=== PATIENT | female | born 1955 | race Caucasian/White ===

== ENCOUNTER 2023-10-05 15:11 | Emergency (ER) | payer MEDICARE, OTHER, SELFPAY ==
[2023-10-05 15:13] VITALS: BP 139/66; PULSE 66; RESP 20; TEMP 36.3; O2SAT 97; BMI 28.3
--- NOTE | 2023-10-05 15:58 | CT_ITS ---
EXAM: CT ANGIOGRAPHY HEAD AND NECK WITHOUT AND WITH INTRAVENOUS CONTRAST CLINICAL INDICATION: sudden headache and neck pain TECHNIQUE: [place] [facility] [place]/head and neck CT angiography protocol performed without and with intravenous contrast. This CT exam was performed using one or more of the following dose reduction techniques: automated exposure control, adjustment of the mA and/or kV according to patient size, and/or use of iterative reconstruction technique. MIP reconstructed images were created and reviewed. CONTRAST: IV 100mL Isovue-[id number] RADIATION DOSE: CTDIvol = 25.50 mGy, DLP = 1480.33 mGy-cm COMPARISON: No relevant prior studies available. FINDINGS: HEAD: RIGHT ANTERIOR CEREBRAL ARTERY: Unremarkable. No occlusion or significant stenosis. Anterior communicating artery is present. No aneurysm. RIGHT MIDDLE CEREBRAL ARTERY: Unremarkable. No occlusion or significant stenosis. No aneurysm. RIGHT POSTERIOR CEREBRAL ARTERY: Unremarkable. No occlusion or significant stenosis. No aneurysm. RIGHT INTRACRANIAL INTERNAL CAROTID ARTERY: Unremarkable. No significant stenosis. No dissection or occlusion. RIGHT INTRACRANIAL VERTEBRAL ARTERY: Unremarkable. No significant stenosis. No dissection or occlusion. LEFT ANTERIOR CEREBRAL ARTERY: Unremarkable. No occlusion or significant stenosis. No aneurysm. LEFT MIDDLE CEREBRAL ARTERY: Unremarkable. No occlusion or significant stenosis. No aneurysm. LEFT POSTERIOR CEREBRAL ARTERY: Unremarkable. No occlusion or significant stenosis. No aneurysm. LEFT INTRACRANIAL INTERNAL CAROTID ARTERY: Unremarkable. No significant stenosis. No dissection or occlusion. LEFT INTRACRANIAL VERTEBRAL ARTERY: Unremarkable. No significant stenosis. No dissection or occlusion. BASILAR ARTERY: Unremarkable. No occlusion or significant stenosis. No aneurysm. OTHER VASCULATURE: No vascular malformation. BRAIN AND EXTRA-AXIAL SPACES: Unremarkable. No intra- or extra-axial hemorrhage. No evidence of acute infarct. No intracranial mass or mass effect. There is preservation of the vergraa/white matter interface. Posterior fossa structures are unremarkable. Ventricles are appropriate for age. No hydrocephalus. Basal cisterns are patent. SINUSES: Moderate chronic sinus disease of the right frontal, ethmoid and maxillary sinuses. MASTOID AIR CELLS: Unremarkable as visualized. Clear. ORBITS: Visualized globes, extraocular muscles, optic nerves and retrobulbar fat appear unremarkable. NECK: RIGHT COMMON CAROTID ARTERY: Unremarkable. No significant stenosis. No dissection or occlusion. RIGHT EXTRACRANIAL INTERNAL CAROTID ARTERY: Atherosclerosis. No significant stenosis. No dissection or occlusion. RIGHT EXTERNAL CAROTID ARTERY: Unremarkable. No occlusion. RIGHT EXTRACRANIAL VERTEBRAL ARTERY: Unremarkable. No significant stenosis. No dissection or occlusion. LEFT COMMON CAROTID ARTERY: Unremarkable. No significant stenosis. No dissection or occlusion. LEFT EXTRACRANIAL INTERNAL CAROTID ARTERY: Atherosclerosis. No significant stenosis. No dissection or occlusion. LEFT EXTERNAL CAROTID ARTERY: Unremarkable. No occlusion. LEFT EXTRACRANIAL VERTEBRAL ARTERY: Unremarkable. No significant stenosis. No dissection or occlusion. BRACHIOCEPHALIC AND SUBCLAVIAN ARTERIES: Unremarkable as visualized. No occlusion or significant stenosis. LUNG APICES: Unremarkable as visualized. HEAD and NECK: BONES/JOINTS: Anterior fusion plate and screws at C5-C7. No discrete lytic or blastic abnormalities. SOFT TISSUES: Unremarkable. CAROTID STENOSIS REFERENCE USING NASCET CRITERIA: % ICA stenosis = (1 - narrowest ICA diameter/diameter of distal cervical ICA) x 100. Mild - <50% stenosis. Moderate - 50-69% stenosis. Severe - 70-94% stenosis. Near occlusion - 95-99% stenosis. Occluded - 100% stenosis. CT/CTA Head AND Neck W/ Contrast IMPRESSION: 1. No acute findings in the arteries of the head and neck. 2. No acute intracranial hemorrhage or mass effect. Electronically Signed: Cong Rush MD ([place]) at 18:48 EST Reading Location ID and State: [facility] / [place] , Service support ,
--- NOTE | 2023-10-05 16:01 | EX.ED.VIS.HA ---
HPI History of Present Illness Chief Complaint: Back Detail of Chief Complaint: Headache and neck pain Informant: patient Narrative Narrative: Patient presents to the emergency department with off-and-on neck pain for couple weeks. She tells me she had a cervical fusion 15 years ago. Today she had worsening pain in her neck and then developed sudden onset of severe headache. She took her Maxalt without relief. She does have history of migraines. Headaches different and that it is more severe and involves the entire head. She does describe some photophobia and some nausea but no vomiting. Patient denies any falls or injuries. No pain or paresthesias in the extremities. No weakness in the extremities. PFSH PFSH Allergy/AdvReac Type Severity Reaction Status Date / Time Iodinated Contrast Media Allergy Hives Verified 10/05/23 15:13 Opioids - Morphine Analogues Allergy Hives Verified 10/05/23 15:13 Social History Smoking Status: Never smoker ROS ROS ED Review of Systems ROS Unobtainable: other Constitutional Constitutional ED: Reports lethargy; Denies chills, fever(s), sweats or weight loss Eyes Eyes: Denies blurry vision, change in vision or diplopia ENT ENT ED: Denies rhinorrhea or sore throat Cardiovascular Cardiovascular: Denies chest pain, orthopnea or racing heartbeat Respiratory/Chest Respiratory/Chest: Denies cough, dyspnea, dyspnea on exertion, orthopnea or sputum Gastrointestinal Gastrointestinal: Denies abdominal pain, diarrhea, nausea or vomiting Genitourinary Genitourinary ED: Denies dysuria, hematuria or urinary frequency Musculoskeletal Musculoskeletal: Reports neck pain; Denies arthralgias, back pain or myalgias Integumentary Denies abscess, Abrasions or rash Neurologic Neurologic: Reports headache(s); Denies weakness Psychiatric Psychiatric: Denies anxiety, depression or suicidal thoughts Endocrine Endocrinology: Denies polydipsia, polyphagia or polyuria Hematologic/Lymphatic Hematologic/Lymphatic: Denies easy bleeding, easy bruising or lymphadenopathy Allergic/Immunologic Allergic/Immunologic ED: Denies mouth swelling, tongue swelling or urticaria EXAM Physical Exam Const Vital Signs: 10/05/23 15:13 10/05/23 19:00 Temperature 97.3 F L Temperature Source Temporal Pulse Rate 66 79 Respiratory Rate 20 H 16 Blood Pressure 139/66 H 151/47 H Blood Pressure Mean 90 81 Pulse Ox 97 98 Oxygen Delivery Method Room Air Positive well nourished and well developed General Appearance ED: well developed and NAD HEENT Reports TM's clear and moist mucous membranes normocephalic and atraumatic; Negative for trauma or tenderness Tympanic Membrane ED: Yes TM's clear Eyes PERRL and EOMs intact bilaterally General Eye ED: Negative for pale conjunctiva or scleral icterus Neck no lymphadenopathy, supple and no JVD Neck Narrative: Tenderness palpation over the C7 vertebrae spinous process. Seems to reproduce her pain. General: tenderness Chest Wall inspection of chest normal and palpation of chest normal Chest: Negative for tenderness Resp normal respiratory effort and clear to auscultation bilaterally Effort and Inspection: Negative for respiratory distress or pain with movement Auscultation: Negative for rhonchi, wheezes or diminished lung sounds Cardio regular rate, regular rhythm, S1 normal heart sound, S2 normal heart sound and no murmurs Peripheral Pulses: pulses 2+ throughout GI normal to inspection, nondistended, normoactive bowel sounds, soft to palpation, non-tender, non-distended and no masses Back/Spine no CVA tenderness and no thoracic nor lumbar tenderness Extremity normal to inspection General Extremety ED: Negative for edema General Extremity: Negative for edema Neuro oriented x3, CN's II-XII intact bilaterally, no sensory deficits noted and gait normal Neuro Narrative: Finger-nose and heel kaminski testing within normal limits, negative Romberg, negative for drift, fundi benign Sensorium / Orientation: awake, alert, oriented to person, oriented to place and oriented to time Motor Exam: strength 5/5 throughout and strength abnormal Psych mental status grossly normal Skin no rashes or lesions noted and no wounds MDM MDM MDM Narrative Medical decision making narrative: Patient presents with atraumatic neck pain and sudden onset of severe headache. She does have history of migraines but this headache feels different. In the differential would be migraine versus intracranial hemorrhage or aneurysm or arterial dissection. IV line was established. She was medicated with Reglan, Benadryl, and Toradol. Patient had a CTA of the head and neck after being premedicated with Solu-Medrol and Benadryl given she has allergy to IVP contrast dye. CTA of head and neck were unremarkable. Reglan and Benadryl and Toradol as well as a liter normal saline fluid bolus did essentially resolve her headache. She is feeling significantly improved. At this point she will be discharged to home. The CTA of the neck did also reveal that she had a cervical fusion and the hardware appears to be in place and there is no evidence of lytic lesions or other bony abnormalities. Lab Data Labs: Laboratory Results - last 24 hr 10/05/23 16:26 Creatinine 0.93 Estim Creat Clear Calc 42.16 Est GFR (MDRD) Af Amer 77 Est GFR (MDRD) Non-Af 64 Radiography Diagnostic Testing: Clinical Impression(s) from Imaging Studies Head/Neck CTA 10/05/23 15:58 IMPRESSION: 1. No acute findings in the arteries of the head and neck. 2. No acute intracranial hemorrhage or mass effect. Electronically Signed: Cong Rush MD ([place]) at 18:48 EST Reading Location ID and State: [facility] / [place] , Service support , Discharge Plan Triage Chief Complaint: Back Other Complaint: Headache ED Provider: Amaury Carrasco Dx/Rx/DC Orders Clinical Impression: Migraine headache, Neck pain Instructions: ED, Migraine (Classical), ED Back and Neck Pain, General Primary Care Provider: Jefefry Ma Referrals: Jeffery Ma MD [Primary Care Provider] - 3-5 Days Disposition Disposition: Home, Self Care Discharge Date/Time: 10/05/23 19:17
[2023-10-05] MEDS: 0.9% Normal Saline (1000mL) 1,000 ML 1000 ML IV (16:18)
[2023-10-05] MEDS: Ketorolac 15 MG/ML Vial IV (16:19)
[2023-10-05] MEDS: DiphenhydrAMINE 50 MG/ML Syringe 25 MG IV (16:19)
[2023-10-05] MEDS: Metoclopramide 10 MG/2 ML Vial IV (16:19)
[2023-10-05] MEDS: MethylPREDNISolone 125 MG/2 ML Vial IV (16:20)
[2023-10-05 17:49] LABS: Creatinine, Serum 0.93 mg/dL (0.55-1.02); EST Glomerular Filtration Rate 64 mL/min (>60); Est Glom Filt Rate - Afr Amer 77 mL/min (>60); Estimated Creatinine Clearance 42.16 ml/min
--- OUTSIDE RECORDS SUMMARY | 2023-10-05 17:55 | XMS RPT_ITS | CCD ---
Author Name Unknown Address [address] [place] [address] Organization [facility] Care Team Providers Care Institutional Aide Name Role Phone JUAN, DR NATASHA Wong Primary Care Unavailable JUAN, DR NATASHA Wong Admitting Unavailable JUAN, DR NATASHA Wong Attending Unavailable JUAN, DR NATASHA Wong Primary Care Unavailable JUAN, DR NATASHA Wong Admitting Unavailable JUAN, DR NATASHA Wong Attending Unavailable KVNG MALONE DO Attending Unavailable FAISAL, KVNG DO Primary Care Unavailable FAISALKVNG ENGLE DO Admitting Unavailable Andrea OPTICAL WORKER.Lazaro SIDDIQUI Primary Care Provider Stella Castillo RN Unavailable LAZARO MENDEZ CNP Primary Care Physician Stella Castillo RN Unavailable Stella Castillo RN Unavailable [facility] OPTICAL WORKER.Gala SIDDIQUI Primary Care Provider [phone] Stella Castillo RN Unavailable [facility] OPTICAL WORKER.Gala SIDDIQUI Primary Care Provider [phone] Andrea OPTICAL WORKER.Lazaro SIDDIQUI Primary Care Provider [facility] OPTICAL WORKER.Gala SIDDIQUI Primary Care Provider [phone] Andrea OPTICAL WORKER.Lazaro SIDDIQUI Primary Care Provider CARLYN LOPEZ Attending Unavailable CARLYN LOPEZ Primary Care Unavailable CARLYN LOPEZ Admitting Unavailable NATASHA MARTINEZ Admitting Unavailable NATASHA MARTINEZ Attending Unavailable NATASHA MARTINEZ Primary Care Unavailable LAZARO MENDEZ Attending Unavailable JULIÁN CLEMENT Attending Unavailable BOLOGNAGALA Attending Unavailable Isela CANDELARIA MD, Robert Earl Primary Care Provider LAZARO MENDEZ Attending Unavailable BOLOGNA, GALA M Attending Unavailable BOLOGNA, GALA M Attending Unavailable ANDREALAZARO Primary Care Unavailable ANDREALAZARO Attending Unavailable ANDREA, LAZAOR Forte Primary Care Unavailable DEBBIE RUIZ Attending Unavailab le LAZARO MENDEZ Primary Care Unavailable JULIÁN CLEMENT Attending Unavailable LAZARO MENDEZ Primary Care Unavailable NITA WEISS II Primary Care Unavailabl e LAZARO MENDEZ Attending Unavailable BOLOGNA, GALA Primary Care Unavailable ANDREALAZARO Attending Unavailable BOLOGNA, GALA Primary Care Unavailable ANDREALAZARO Attending Unavailable BOLOGNA, GALA Primary Care Unavailable ANDREALAZARO Attending Unavailable BOLOGNA, GALA Primary Care Unavailable MILAGRO VIRAMONTES Attending Unavailable ANDREA, LAZARO Forte Primary Care Unavailable BOLOGNA, GALA Primary Care Unavailable BOLOGNAGALA Attending Unavailable LAZARO MENDEZ Primary Care Unavailable Stella Castillo RN Unavailable [facility] OPTICAL WORKER.MACHINE TRACER, Gala Primary Care Provider [facility] OPTICAL WORKER.MACHINE TRACER, [facility] Primary Care Provider CLIF HOGAN Attending Unavailable CLIF HOGAN Referring Unavailable NITA WEISS II Primary Care Unavailabl e FAIZA ARAGON Attending Unavailable BOLOGNA, GALA Primary Care Unavailable MARGOFAIZA Attending Unavailable MARGO, FAIZA Referring Unavailable LAZARO MENDEZ Primary Care Unavailable CLIF HOGAN Admitting Unavailable CLIF HOGAN Attending Unavailable BOLOGNA, GALA Primary Care Unavailable MARGO, FAIZA Attending Unavailable BOLOGNA, GALA Referring Unavailable BOLOGNA, GALA Primary Care Unavailable CLIF HOGAN Admitting Unavailable CLIF HOGAN Attending Unavailable BOLOGNA, GALA Primary Care Unavailable MARGOFAIZA LUJAN Attending Unavailable NITA WEISS II Primary Care Unavailabl DEANN Gomez PA-C Attending Unavailable ISELA MORENO, DR NITA CANDELARIA Primary Care Unavailab le Allergies Allergy Classification Reported Allergen(s) Allergy Type Date of Onset Reaction(s) Facility (20 sources) Morphine; Translations: [morphine] Drug Allergy 9 [facility] (20 sources) Iodinated Contrast Media; Translations: [IODINATED CONTRAST MEDIA] Drug Allergy 6 [facility] (1 source) Contrast media Drug allergy [facility] (20 sources) Doxepin; Translations: [DOXEPIN] Drug Allergy 9 Other: See Comments [facility] (1 source) Morphine Drug Allergy [facility] (1 source) CONTRAST MEDIA, IODINE RELATED Drug allergy (disorder) [facility] Medications Current Medications Medication Drug Class(es) Dates Sig (Normalized) Sig (Original) acetaminophen 325 mg / HYDROcodone bitartrate 5 mg oral tablet (1 source) Opioid Agonist Start: 12-31-2021 End: 01-03-2022 take 1 tablet by mouth every six hours as needed for pain [place] 325- 5 mg oral tablet Dose = 1 tab(s), Oral, q6h, PRN for pain, X 3 day(s), # 12 tab(s), 0 Refill(s), Chest wall pain, 66.8 Start Date: 12/31/21 Stop Date: 01/03/22 Status: Ordered acetaminophen 325 mg / oxyCODONE hydrochloride 10 mg oral tablet (20 sources) Opioid Agonist Start: 06-17-2023 End: 08-16-2023 take 1 tablet by mouth every eight hours as needed oxyCODONE-acetami nophen (PERCOCET 10) 10-325 mg tablet Take 1 tablet by mouth three times a day as needed for pain for up to 30 days. Do not start before July 17, 2023. 90 tablet 0 07/17/2023 08/16/2023 Active Completed/Discontinued Medications Medication Drug Class(es) Dates Sig (Normalized) Sig (Original) [id number] actuat albuterol 0.09 mg/actuat metered dose inhaler (20 sources) beta2-Adrenergic Agonist Start: 10-27-2021 End: 01-11-2023 take 1 puff(s) by inhalation every six hours as needed albuterol HFA (PROVENTIL HFA, VENTOLIN HFA) 90 mcg/actuation inhaler Inhale 1 Puff as instructed every 6 hours as needed. 18 g 5 01/11/2023 Active Problems Active Problems Problem Classification Problem Date Documented Da te Episodic/Chronic Allergic reactions (4 sources) Allergy status to narcotic agent status; Translations: [Radiographic dye allergy status] Onset: 1 Episodic Anxiety disorders (20 sources) Generalized anxiety disorder; Translations: [Generalized anxiety disorder] Onset: 3 Chronic Cancer of uterus (20 sources) Malignant neoplasm of uterus; Translations: [Malignant neoplasm of uterus, part unspecified] Onset: 3 01-16-2023 Chronic Chronic kidney disease (20 sources) Chronic kidney disease stage 3A ; Translations: [Chronic kidney disease, stage 3a] Onset: 3 04-08-2023 Chronic Conditions associated with dizziness or vertigo (20 sources) Meniere's disease; Translations: [Meniere's disease, unspecified ear] Onset: 3 01-16-2023 Chronic Diabetes mellitus with complications (1 source) Type 2 diabetes mellitus; Translations: [Type 2 diabetes mellitus with hyperglycemia] 04-08-2023 Chronic Diabetes mellitus without complication (20 sources) Type 2 diabetes mellitus without complication; Translations: [Type 2 diabetes mellitus without complications] Onset: 3 01-16-2023 Chronic Disorders of lipid metabolism (20 sources) Hyperlipoproteinemia; Translations: [Hyperlipidemia, unspecified] Onset: 2 09-03-2019 Chronic Diverticulosis and diverticulitis (20 sources) Diverticular disease; Translations: [Diverticulosis of intestine, part unspecified, without perforation or abscess without bleeding] Onset: 2 Chronic Esophageal disorders (20 sources) Gastroesophageal reflux disease; Translations: [Gastro-esophageal reflux disease without esophagitis] 01-06-2021 Chronic Essential hypertension (20 sources) Essential (primary) hypertension; Translations: [Hypertensive disorder] Onset: 1 09-03-2019 Chronic Gastroduodenal ulcer (except hemorrhage) (1 source) Multiple gastric ulcers; Translations: [Gastric ulcer, unspecified as acute or chronic, without hemorrhage or perforation] Chronic Genitourinary symptoms and ill-defined conditions (20 sources) Female stress incontinence; Translations: [Stress incontinence (female) (male)] Onset: 3 01-16-2023 Chronic Genitourinary symptoms and ill-defined conditions (1 source) Urinary symptoms ; Translations: [Unspecified symptoms and signs involving the genitourinary system] Episodic Headache; including migraine (20 sources) Migraine; Translations: [Migraine, unspecified, not intractable, without status migrainosus] Onset: 3 05-11-2019 Chronic Joint disorders and dislocations; trauma-related (20 sources) Traumatic arthropathy-wrist; Translations: [Traumatic arthropathy, right wrist] Onset: 6 Chronic Miscellaneous mental health disorders (20 sources) Chronic insomnia; Translations: [Psychophysiologic insomnia] Onset: 8 Chronic Miscellaneous mental health disorders (20 sources) Depressed mood; Translations: [Other symptoms and signs involving emotional state] 09-03-2019 Episodic Mood disorders (20 sources) Depressive disorder; Translations: [Mixed bipolar affective disorder, moderate] Onset: 1 10-05-2016 Chronic Nonmalignant breast conditions (2 sources) Breast lump; Translations: [Unspecified lump in the right breast, overlapping quadrants] Episodic Other aftercare (3 sources) Taking high risk medication; Translations: [Other career services director (current) drug therapy] Episodic Other connective tissue disease (5 sources) Bursitis of right shoulder; Translations: [Bursitis of right shoulder] Episodic Other connective tissue disease (2 sources) Right rotator cuff syndrome; Translations: [Unspecified rotator cuff tear or rupture of right shoulder, not specified as traumatic] Episodic Other connective tissue disease (1 source) Rotator cuff arthropathy of left shoulder; Translations: [Unspecified rotator cuff tear or rupture of left shoulder, not specified as traumatic] Episodic Other gastrointestinal disorders (20 sources) Irritable bowel syndrome; Translations: [Irritable bowel syndrome without diarrhea] Onset: 2 01-16-2023 Chronic Other lower respiratory disease (1 source) Cough; Translations: [Cough] Episodic Other lower respiratory disease (2 sources) Snoring; Translations: [Snoring] Episodic Other nervous system disorders (20 sources) Chronic pain syndrome; Translations: [Chronic pain syndrome] Onset: 7 Chronic Other nervous system disorders (1 source) Chronic pain syndrome; Translations: [Chronic pain syndrome] Onset: 2 Chronic Other non-traumatic joint disorders (20 sources) Bone spur of vertebra; Translations: [Osteophyte, vertebrae] Onset: 8 01-16-2023 Chronic Other non-traumatic joint disorders (3 sources) Shoulder pain; Translations: [Pain in left shoulder] Episodic Other nutritional; endocrine; and metabolic disorders (20 sources) Obesity; Translations: [Obesity, unspecified] Onset: 3 01-16-2023 Chronic Other upper respiratory disease (20 sources) Allergic rhinitis; Translations: [Allergic rhinitis, unspecified] Onset: 3 01-16-2023 Chronic Other upper respiratory disease (1 source) Seasonal allergic rhinitis; Translations: [Other seasonal allergic rhinitis] 04-08-2023 Chronic Other upper respiratory infections (3 sources) Bacterial sinusitis; Translations: [Chronic sinusitis, unspecified] Chronic Other upper respiratory infections (4 sources) Upper respiratory infection; Translations: [Acute upper respiratory infection, unspecified] Episodic Residual codes; unclassified (3 sources) Obstructive sleep apnea syndrome; Translations: [Obstructive sleep apnea (adult) (pediatric)] Chronic Residual codes; unclassified (20 sources) Hypersomnia with sleep apnea; Translations: [Hypersomnia, unspecified] Onset: 3 01-16-2023 Chronic Residual codes; unclassified (1 source) Daytime somnolence; Translations: [Other hypersomnia] 04-08-2023 Chronic Residual codes; unclassified (2 sources) Acquired absence of other specified parts of digestive tract; Translations: [Acquired absence of other specified parts of digestive tract] Onset: Episodic Spondylosis; intervertebral disc disorders; other back problems (20 sources) Lumbar spondylosis; Translations: [Spondylosis without myelopathy or radiculopathy, lumbar region] Onset: 8 01-16-2023 Chronic Thyroid disorders (20 sources) Hypothyroidism; Translations: [Hypothyroidism, unspecified] Onset: 3 01-16-2023 Chronic Urinary tract infections (1 source) Recurrent urinary tract infection; Translations: [Urinary tract infection, site not specified] Episodic Past or Other Problems Problem Classification Problem Date Documented Da te Episodic/Chronic Abdominal hernia (20 sources) Hiatal hernia; Translations: [Diaphragmatic hernia without obstruction or gangrene] Onset: 09-03-2012 Episodic Abdominal pain (20 sources) Epigastric pain; Translations: [Epigastric pain] Onset: 09-03-2012 Episodic Diabetes mellitus without complication (2 sources) Impaired fasting glycemia; Translations: [Impaired fasting glucose] Onset: 10-12-2022 Episodic Gastritis and duodenitis (20 sources) Gastritis; Translations: [Gastritis, unspecified, without bleeding] Onset: 09-03-2012 Episodic Hemorrhoids (20 sources) Internal hemorrhoids; Translations: [Other hemorrhoids] Onset: 09-03-2012 01-16-2023 Episodic Nausea and vomiting (20 sources) Nausea and vomiting; Translations: [Nausea with vomiting, unspecified] Onset: 09-03-2012 01-16-2023 Episodic Nonspecific chest pain (20 sources) Chest pain; Translations: [Other chest pain] Onset: 12-31-2021 Episodic Other aftercare (20 sources) Patient encounter status; Translations: [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] Onset: 12-04-2016 01-16-2023 Episodic Other aftercare (1 source) Other mcfp (current) drug therapy; Translations: [High risk medication use] Onset: 08-27-2022 Episodic Other and unspecified benign neoplasm (20 sources) Benign neoplasm of colon; Translations: [Benign neoplasm of colon, unspecified] Onset: 09-03-2012 01-16-2023 Episodic Other connective tissue disease (20 sources) Lateral epicondylitis of right humerus; Translations: [Lateral epicondylitis, right elbow] Onset: 11-23-2015 Episodic Other connective tissue disease (20 sources) Biceps tendinitis; Translations: [Bicipital tendinitis, right shoulder] Onset: 08-09-2015 Episodic Other connective tissue disease (20 sources) Bursitis of shoulder; Translations: [Bursitis of unspecified shoulder] Onset: 12-10-2017 01-16-2023 Episodic Other connective tissue disease (20 sources) History of cervical spine fusion; Translations: [Arthrodesis status] Onset: 01-16-2023 01-16-2023 Episodic Other connective tissue disease (20 sources) Tear of right rotator cuff; Translations: [Unspecified rotator cuff tear or rupture of right shoulder, not specified as traumatic] Onset: 11-23-2015 01-16-2023 Episodic Other connective tissue disease (2 sources) Lateral epicondylitis, right elbow; Translations: [Lateral epicondylitis, right elbow] Onset: 08-27-2022 Episodic Other connective tissue disease (1 source) Bicipital tendinitis, right shoulder; Translations: [Bicipital tendinitis, right shoulder] Onset: 01-16-2023 Episodic Other connective tissue disease (1 source) Bursitis of right shoulder; Translations: [Bursitis of right shoulder] Onset: 01-16-2023 Episodic Other connective tissue disease (1 source) Unspecified rotator cuff tear or rupture of right shoulder, not specified as traumatic; Translations: [Rotator cuff syndrome of right shoulder] Onset: 08-27-2022 Episodic Other female genital disorders (20 sources) Dysplasia of cervix; Translations: [Dysplasia of cervix uteri, unspecified] Onset: 01-16-2023 01-16-2023 Episodic Other gastrointestinal disorders (20 sources) Constipation; Translations: [Constipation, unspecified] Onset: 01-16-2023 01-16-2023 Episodic Other gastrointestinal disorders (20 sources) Dysphagia; Translations: [Dysphagia, unspecified] Onset: 01-16-2023 01-16-2023 Episodic Other lower respiratory disease (20 sources) Dyspnea; Translations: [Shortness of breath] Onset: 07-03-2017 01-16-2023 Episodic Other non-traumatic joint disorders (20 sources) Pain of left shoulder joint; Translations: [Pain in left shoulder] Onset: 01-22-2022 01-16-2023 Episodic Other skin disorders (20 sources) Mass of upper limb; Translations: [Localized swelling, mass and lump, left upper limb] Onset: 06-22-2022 Episodic Residual codes; unclassified (20 sources) Illness, unspecified; Translations: [Other unknown and unspecified cause of morbidity and mortality] Onset: 01-16-2023 01-16-2023 Episodic Residual codes; unclassified (20 sources) Edema; Translations: [Edema, unspecified] Onset: 07-03-2017 01-16-2023 Episodic Spondylosis; intervertebral disc disorders; other back problems (20 sources) Low back pain; Translations: [Fusion of spine, cervical region] Onset: 04-21-2018 Episodic Sprains and strains (20 sources) Shoulder strain; Translations: [Strain of unspecified muscle, fascia and tendon at shoulder and upper arm level, right arm, sequela] Onset: 11-23-2015 Episodic Unclassified (1 source) R07.89 Onset: 03-19-2023 Results Test Name Value Interpretation Reference Range Facil ity Vital Signs Date Time Vital Sign Value Performing Clinician Facility 07-15-2023 15:37-0400 Body height 152.4 cm Clif Hogan DO Work Phone: [facility] 07-15-2023 15:37-0400 Body weight 67.13 kg Clif Hogan DO Work Phone: [facility] 07-15-2023 15:37-0400 Diastolic blood pressure 69 mm[Hg] Clif Hogan DO Work Phone: [facility] 07-15-2023 15:37-0400 Heart rate 83 /min Clif Hogan DO Work Phone: [facility] 07-15-2023 15:37-0400 Respiratory rate 19 /min Clif Hogan DO Work Phone: [facility] 07-15-2023 15:37-0400 SaO2% (BldA) [Mass fraction] 96 % Clif Hogan DO Work Phone: [facility] 07-15-2023 15:37-0400 Systolic blood pressure 134 mm[Hg] Clif Hogan DO Work Phone: [facility] 04-25-2023 11:16-0400 Body temperature 98.4 [degF] Lazaro Mendez APRN.MACHINE TRACER Work Phone: [facility] 04-25-2023 11:16-0400 Body weight 66.22 kg Lazaro Mendez APRN.MACHINE TRACER Work Phone: [facility] 04-25-2023 11:16-0400 Diastolic blood pressure 71 mm[Hg] Lazaro Mendez APRN.MACHINE TRACER Work Phone: [facility] 04-25-2023 11:16-0400 Heart rate 75 /min Lazaro Mendez APRN.MACHINE TRACER Work Phone: [facility] 04-25-2023 11:16-0400 SaO2% (BldA) [Mass fraction] 97 % Lazaro Andrea OPTICAL WORKER.MACHINE TRACER Work Phone: [facility] 04-25-2023 11:16-0400 Systolic blood pressure 162 mm[Hg] Lazaro Estradar OPTICAL WORKER.MACHINE TRACER Work Phone: [facility] 04-17-2023 13:57-0400 Body weight 66.95 kg Faiza Margo 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 Work Phone: [facility] 04-17-2023 13:57-0400 Diastolic blood pressure 72 mm[Hg] Faiza Margo 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 Work Phone: [facility] 04-17-2023 13:57-0400 Heart rate 70 /min Faiza Rancocas 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 Work Phone: [facility] 04-17-2023 13:57-0400 SaO2% (BldA) [Mass fraction] 96 % Faiza Rancocas 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 Work Phone: [facility] 04-17-2023 13:57-0400 Systolic blood pressure 169 mm[Hg] Faiza Rancocas 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 Work Phone: [facility] 04-08-2023 16:24-0400 Body height 152.4 cm Nita Weiss II, MD Work Phone: [facility] 04-08-2023 16:24-0400 Body temperature 97 [degF] Nita Weiss II, MD Work Phone: [facility] 04-08-2023 16:24-0400 Body weight 65.32 kg Nita Weiss II, MD Work Phone: [facility] 04-08-2023 16:24-0400 Diastolic blood pressure 60 mm[Hg] Nita Weiss II, MD Work Phone: [facility] 04-08-2023 16:24-0400 Heart rate 77 /min Nita Weiss II, MD Work Phone: [facility] 04-08-2023 16:24-0400 Respiratory rate 12 /min Nita Weiss II, MD Work Phone: [facility] 04-08-2023 16:24-0400 SaO2% (BldA) [Mass fraction] 96 % Nita Weiss II, MD Work Phone: [facility] 04-08-2023 16:24-0400 Systolic blood pressure 130 mm[Hg] Nita Weiss II, MD Work Phone: [facility] 03-19-2023 11:33-0400 Body height 152.4 cm Lazaro Andrea OPTICAL WORKER.MACHINE TRACER Work Phone: [facility] 03-19-2023 11:33-0400 Body temperature 99.1 [degF] Lazaro Andrea OPTICAL WORKER.MACHINE TRACER Work Phone: [facility] 03-19-2023 11:33-0400 Body weight 66.22 kg Lazaro Andrea OPTICAL WORKER.MACHINE TRACER Work Phone: [facility] 03-19-2023 11:33-0400 Diastolic blood pressure 75 mm[Hg] Lazaro Andrea OPTICAL WORKER.MACHINE TRACER Work Phone: [facility] 03-19-2023 11:33-0400 Heart rate 99 /min Lazaro Andrea OPTICAL WORKER.MACHINE TRACER Work Phone: [facility] 03-19-2023 11:33-0400 Respiratory rate 18 /min Lazaro Andrea OPTICAL WORKER.MACHINE TRACER Work Phone: [facility] 03-19-2023 11:33-0400 SaO2% (BldA) [Mass fraction] 97 % Lazaro Andrea OPTICAL WORKER.MACHINE TRACER Work Phone: [facility] 03-19-2023 11:33-0400 Systolic blood pressure 168 mm[Hg] Lazaro Andrea OPTICAL WORKER.MACHINE TRACER Work Phone: [facility] 01-16-2023 15:58-0400 Body height 152.4 cm Faiza Rancocas 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 Work Phone: [facility] 01-16-2023 15:58-0400 Body weight 63.5 kg Faiza Rancocas 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 Work Phone: [facility] 01-16-2023 15:58-0400 Diastolic blood pressure 57 mm[Hg] Faiza Margo 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 Work Phone: [facility] 01-16-2023 15:58-0400 Heart rate 84 /min Faiza Rancocas 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 Work Phone: [facility] 01-16-2023 15:58-0400 Respiratory rate 19 /min [facility] Margo 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 Work Phone: [facility] 01-16-2023 15:58-0400 SaO2% (BldA) [Mass fraction] 96 % [facility] Rancocas 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 Work Phone: [facility] 01-16-2023 15:58-0400 Systolic blood pressure 134 mm[Hg] [facility] Rancocas 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 Work Phone: [facility] 10-11-2022 13:38-0500 Body height 152.4 cm Milagro Viramontes MD Work Phone: [facility] 10-11-2022 13:38-0500 Body weight 66.22 kg Milagro Viramontes MD Work Phone: [facility] 10-11-2022 13:38-0500 Diastolic blood pressure 71 mm[Hg] Milagro Viramontes MD Work Phone: [facility] 10-11-2022 13:38-0500 Heart rate 76 /min Milagro Viramontes MD Work Phone: [facility] 10-11-2022 13:38-0500 Systolic blood pressure 160 mm[Hg] Milagro Viramontes MD Work Phone: [facility] 10-10-2022 14:18-0500 Diastolic blood pressure 48 mm[Hg] Clif Hogan DO Work Phone: [facility] 10-10-2022 14:18-0500 Heart rate 70 /min Clif Hogan DO Work Phone: [facility] 10-10-2022 14:18-0500 Respiratory rate 16 /min Clif Hogan DO Work Phone: [facility] 10-10-2022 14:18-0500 SaO2% (BldA) [Mass fraction] 95 % Clif Hogan DO Work Phone: [facility] 10-10-2022 14:18-0500 Systolic blood pressure 106 mm[Hg] Clif Hogan DO Work Phone: [facility] 08-27-2022 15:22-0500 Diastolic blood pressure 43 mm[Hg] Faiza Rancocas 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 Work Phone: [facility] 08-27-2022 15:22-0500 Heart rate 76 /min Faiza Margo 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 Work Phone: [facility] 08-27-2022 15:22-0500 SaO2% (BldA) [Mass fraction] 96 % Faiza Rancocas 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 Work Phone: [facility] 08-27-2022 15:22-0500 Systolic blood pressure 138 mm[Hg] Faiza Rancocas 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 Work Phone: [facility] 08-07-2022 17:28-0500 Body weight 68.04 kg Gala Leightona OPTICAL WORKER.MACHINE TRACER Work Phone: [facility] 08-07-2022 17:28-0500 Diastolic blood pressure 72 mm[Hg] Gala Bologna OPTICAL WORKER.MACHINE TRACER Work Phone: [facility] 08-07-2022 17:28-0500 Heart rate 72 /min Gala Bologna OPTICAL WORKER.MACHINE TRACER Work Phone: [facility] 08-07-2022 17:28-0500 SaO2% (BldA) [Mass fraction] 98 % Gala Bologna OPTICAL WORKER.MACHINE TRACER Work Phone: [facility] 08-07-2022 17:28-0500 Systolic blood pressure 146 mm[Hg] Gala Bologna OPTICAL WORKER.MACHINE TRACER Work Phone: [facility] 08-01-2022 13:32-0400 Body height 152.4 cm Lazaro Mendez APRN.MACHINE TRACER Work Phone: [facility] 08-01-2022 13:32-0400 Body temperature 98.01 [degF] Lazaro Mendez APRN.MACHINE TRACER Work Phone: [facility] 08-01-2022 13:32-0400 Body weight 67.13 kg Lazaro Mendez OPTICAL WORKER.MACHINE TRACER Work Phone: [facility] 08-01-2022 13:32-0400 Diastolic blood pressure 68 mm[Hg] Lazaro Mendez OPTICAL WORKER.MACHINE TRACER Work Phone: [facility] 08-01-2022 13:32-0400 Heart rate 63 /min Lazaro Mendez OPTICAL WORKER.MACHINE TRACER Work Phone: [facility] 08-01-2022 13:32-0400 SaO2% (BldA) [Mass fraction] 99 % Lazaro Mendez OPTICAL WORKER.MACHINE TRACER Work Phone: [facility] 08-01-2022 13:32-0400 Systolic blood pressure 154 mm[Hg] Lazaro Mendez OPTICAL WORKER.MACHINE TRACER Work Phone: [facility] 07-23-2022 13:20-0400 Body height 152.4 cm Debbie Ruiz MD Work Phone: [facility] 07-23-2022 13:20-0400 Body weight 67.99 kg Debbie Ruiz MD Work Phone: [facility] 07-23-2022 13:20-0400 Diastolic blood pressure 70 mm[Hg] Debbie Ruiz MD Work Phone: [facility] 07-23-2022 13:20-0400 Heart rate 80 /min Debbie Ruiz MD Work Phone: [facility] 07-23-2022 13:20-0400 Systolic blood pressure 171 mm[Hg] Debbie Ruiz MD Work Phone: [facility] 06-25-2022 11:02-0400 Body height 152.4 cm Julián Clement OPTICAL WORKER.MACHINE TRACER Work Phone: [facility] 06-25-2022 11:02-0400 Body temperature 98.71 [degF] Julián Urbano OPTICAL WORKER.MACHINE TRACER Work Phone: [facility] 06-25-2022 11:02-0400 Body weight 68.77 kg Julián Urbano OPTICAL WORKER.MACHINE TRACER Work Phone: [facility] 06-25-2022 11:02-0400 Diastolic blood pressure 62 mm[Hg] Julián Urbano OPTICAL WORKER.MACHINE TRACER Work Phone: [facility] 06-25-2022 11:02-0400 Heart rate 78 /min Julián Urbano OPTICAL WORKER.MACHINE TRACER Work Phone: [facility] 06-25-2022 11:02-0400 Respiratory rate 16 /min Julián Urbano OPTICAL WORKER.MACHINE TRACER Work Phone: [facility] 06-25-2022 11:02-0400 SaO2% (BldA) [Mass fraction] 99 % Julián Urbano OPTICAL WORKER.MACHINE TRACER Work Phone: [facility] 06-25-2022 11:02-0400 Systolic blood pressure 183 mm[Hg] Julián Urbano OPTICAL WORKER.MACHINE TRACER Work Phone: [facility] 06-22-2022 14:47-0400 Body temperature 97.5 [degF] Nanci Schwarz MD Work Phone: [facility] 06-22-2022 14:47-0400 Body weight 65.91 kg Nanci Schwarz MD Work Phone: [facility] 06-22-2022 14:47-0400 Diastolic blood pressure 59 mm[Hg] Nanci Schwarz MD Work Phone: [facility] 06-22-2022 14:47-0400 Heart rate 68 /min Nanci Schwarz MD Work Phone: [facility] 06-22-2022 14:47-0400 Respiratory rate 18 /min Nanci Schwarz MD Work Phone: [facility] 06-22-2022 14:47-0400 SaO2% (BldA) [Mass fraction] 97 % Nanci Schwarz MD Work Phone: [facility] 06-22-2022 14:47-0400 Systolic blood pressure 121 mm[Hg] Nanci Schwarz MD Work Phone: [facility] 05-23-2022 15:10-0400 Diastolic blood pressure 60 mm[Hg] Faiza Rancocas 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 Work Phone: [facility] 05-23-2022 15:10-0400 Heart rate 93 /min Faiza Margo 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 Work Phone: [facility] 05-23-2022 15:10-0400 SaO2% (BldA) [Mass fraction] 95 % Faiza Rancocas 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 Work Phone: [facility] 05-23-2022 15:10-0400 Systolic blood pressure 112 mm[Hg] Faiza Margo 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 Work Phone: [facility] 04-18-2022 11:42-0400 Body height 152.4 cm Lazaro Andrea OPTICAL WORKER.MACHINE TRACER Work Phone: [facility] 04-18-2022 11:42-0400 Body temperature 98.2 [degF] Lazaro Andrea OPTICAL WORKER.MACHINE TRACER Work Phone: [facility] 04-18-2022 11:42-0400 Body weight 69.67 kg Lazaro Andrea OPTICAL WORKER.MACHINE TRACER Work Phone: [facility] 04-18-2022 11:42-0400 Diastolic blood pressure 75 mm[Hg] Lazaro Andrea OPTICAL WORKER.MACHINE TRACER Work Phone: [facility] 04-18-2022 11:42-0400 Systolic blood pressure 115 mm[Hg] Lazaro Andrea OPTICAL WORKER.MACHINE TRACER Work Phone: [facility] 03-22-2022 15:38-0400 Body height 152.4 cm Lazaro Andrea OPTICAL WORKER.MACHINE TRACER Work Phone: [facility] 03-22-2022 15:38-0400 Body temperature 98.2 [degF] Lazaro Andrea OPTICAL WORKER.MACHINE TRACER Work Phone: [facility] 03-22-2022 15:38-0400 Body weight 67.13 kg Lazaro Andrea OPTICAL WORKER.MACHINE TRACER Work Phone: [facility] 03-22-2022 15:38-0400 Diastolic blood pressure 73 mm[Hg] Lazaro Andrea OPTICAL WORKER.MACHINE TRACER Work Phone: [facility] 03-22-2022 15:38-0400 Heart rate 73 /min Lazaro Andrea OPTICAL WORKER.MACHINE TRACER Work Phone: [facility] 03-22-2022 15:38-0400 Respiratory rate 14 /min Lazaro Andrea OPTICAL WORKER.MACHINE TRACER Work Phone: [facility] 03-22-2022 15:38-0400 SaO2% (BldA) [Mass fraction] 97 % Lazaro Andrea OPTICAL WORKER.MACHINE TRACER Work Phone: [facility] 03-22-2022 15:38-0400 Systolic blood pressure 127 mm[Hg] Lazaro Andrea OPTICAL WORKER.MACHINE TRACER Work Phone: [facility] 02-15-2022 18:10-0400 Body height 152.4 cm Lazaro Andrea OPTICAL WORKER.MACHINE TRACER Work Phone: [facility] 02-15-2022 18:10-0400 Body weight 67.13 kg Lazaro Andrea OPTICAL WORKER.MACHINE TRACER Work Phone: [facility] 02-15-2022 18:10-0400 Diastolic blood pressure 80 mm[Hg] Lazaro Andrea OPTICAL WORKER.MACHINE TRACER Work Phone: [facility] 02-15-2022 18:10-0400 Heart rate 87 /min Lazaro Andrea OPTICAL WORKER.MACHINE TRACER Work Phone: [facility] 02-15-2022 18:10-0400 SaO2% (BldA) [Mass fraction] 97 % Lazaro Andrea OPTICAL WORKER.MACHINE TRACER Work Phone: [facility] 02-15-2022 18:10-0400 Systolic blood pressure 142 mm[Hg] Lazaro Andrea OPTICAL WORKER.MACHINE TRACER Work Phone: [facility] 02-03-2022 13:58-0400 Body temperature 98.71 [degF] Ivonne Weinstein APRN.MACHINE TRACER Work Phone: [facility] 02-03-2022 13:58-0400 Body weight 69.4 kg Ivonne Weinstein APRN.MACHINE TRACER Work Phone: [facility] 02-03-2022 13:58-0400 Diastolic blood pressure 74 mm[Hg] Ivonne Weinstein APRN.MACHINE TRACER Work Phone: [facility] 02-03-2022 13:58-0400 Heart rate 97 /min Ivonne Weinstein APRN.MACHINE TRACER Work Phone: [facility] 02-03-2022 13:58-0400 Respiratory rate 20 /min Ivonne Weinstein APRN.MACHINE TRACER Work Phone: [facility] 02-03-2022 13:58-0400 SaO2% (BldA) [Mass fraction] 97 % Ivonne Weinstein APRN.MACHINE TRACER Work Phone: [facility] 02-03-2022 13:58-0400 Systolic blood pressure 134 mm[Hg] Ivonne Weinstein APRN.MACHINE TRACER Work Phone: [facility] 01-25-2022 14:57-0400 Body height 152.4 cm Nita Pino MD Work Phone: [facility] 01-25-2022 14:57-0400 Body weight 69.4 kg Nita Pino MD Work Phone: [facility] 01-01-2022 14:20-0400 Body height 152.4 cm Nita Pino MD Work Phone: [facility] 01-01-2022 14:20-0400 Body weight 69.4 kg Nita Pino MD Work Phone: [facility] 12-31-2021 19:18-0400 Diastolic blood pressure 53 mm[Hg] ZULLY BAXTER MD [facility] 12-31-2021 19:18-0400 Heart rate 104 /min ZULLY BAXTER MD [facility] 12-31-2021 19:18-0400 Respiratory rate 14 /min ZULLY BAXTER MD [facility] 12-31-2021 19:18-0400 Systolic blood pressure 127 mm[Hg] ZULLY BAXTER MD [facility] 12-31-2021 17:35-0400 Diastolic blood pressure 50 mm[Hg] ZULLY BAXTER MD [facility] 12-31-2021 17:35-0400 Heart rate 105 /min ZULLY BAXTER MD [facility] 12-31-2021 17:35-0400 Reason For Taking VItal Signs ZULLY BAXTER MD [facility] 12-31-2021 17:35-0400 Respiratory rate 18 /min ZULLY BAXTER MD [facility] 12-31-2021 17:35-0400 Systolic blood pressure 126 mm[Hg] ZULLY BAXTER MD [facility] 12-31-2021 16:05-0400 Diastolic blood pressure 77 mm[Hg] ZULLY BAXTER MD [facility] 12-31-2021 16:05-0400 Heart rate 86 /min ZULLY BAXTER MD [facility] 12-31-2021 16:05-0400 Respiratory rate 17 /min ZULLY BAXTER MD [facility] 12-31-2021 16:05-0400 Systolic blood pressure 143 mm[Hg] ZULLY BAXTER MD [facility] 12-31-2021 15:53-0400 Body temperature 97.88 [degF] ZULLY BAXTER MD [facility] 12-31-2021 15:53-0400 Body weight 66.8 kg ZULLY BAXTER MD [facility] 12-22-2021 13:23-0400 Body height 152.4 cm Lazaro Mendez APRN.MACHINE TRACER Work Phone: [facility] 12-22-2021 13:23-0400 Body weight 69.4 kg Lazaro Mendez APRN.MACHINE TRACER Work Phone: [facility] 12-22-2021 13:23-0400 Diastolic blood pressure 80 mm[Hg] Lazaro Mendez APRN.MACHINE TRACER Work Phone: [facility] 12-22-2021 13:23-0400 Heart rate 96 /min Lazaro Mendez APRN.MACHINE TRACER Work Phone: [facility] 12-22-2021 13:23-0400 SaO2% (BldA) [Mass fraction] 98 % Lazaro Mendez APRN.MACHINE TRACER Work Phone: [facility] 12-22-2021 13:23-0400 Systolic blood pressure 145 mm[Hg] Lazaro Mendez APRN.MACHINE TRACER Work Phone: [facility] Encounters Encounter Date Encounter Type Care Provider Facility Start: 08-09-2023 End: 08-09-2023 Emergency department patient visit DEANN GARZA PA-C Facility:A Start: 08-08-2023 Lauren Olmstead APRN.MACHINE TRACER Work Phone: [facility] Procedures Date Procedure Procedure Detail Performing Clinician Start: 04-25-2023 RAPID STREP TEST B/O Lazaro Mendez APRN.MACHINE TRACER Work Phone: Start: 03-19-2023 Urnls dip stick/tablet rgnt auto w/o microscopy Lazaro Mendez APRN.MACHINE TRACER Work Phone: Start: 03-19-2023 CBC + DIFF Lazaro Mendez APRN.MACHINE TRACER Work Phone: Start: 03-19-2023 CK CREATINE KINASE Lazaro Mendez APRN.MACHINE TRACER Work Phone: Start: 03-19-2023 Comprehensive metabolic 2000 panel - Serum or Plasma Lazaro Mendez OPTICAL WORKER.MACHINE TRACER Work Phone: Start: 03-19-2023 Creatine kinase.MB [Mass/volume] in Serum or Plasma Lazaro Mendez APRN.MACHINE TRACER Work Phone: Start: 03-19-2023 Hemoglobin A1c/Hemoglobin.total in Blood Lazaro Mendez APRN.MACHINE TRACER Work Phone: Start: 03-19-2023 HIGH SENSITIVITY TROPONIN T Lazaro Mendez APRN.MACHINE TRACER Work Phone: Start: 03-19-2023 Bacteria identified in Urine by Culture Lazaro Mendez APRN.MACHINE TRACER Work Phone: Start: 01-16-2023 H/O: hysterectomy History of hysterectomy Faiza Aragon 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 Work Phone: Start: 01-16-2023 History of cholecystectomy History of cholecystectomy Faiza Aragon 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 Work Phone: Start: 10-12-2022 Hemoglobin A1c/Hemoglobin.total in Blood Gala Olmstead OPTICAL WORKER.MACHINE TRACER Work Phone: Start: 10-10-2022 Fluoroscopy up to 1 hour physician/qhp time Clif Hogan DO Work Phone: Start: 10-10-2022 End: 10-10-2022 Arthrocentesis aspir&/inj major jt/bursa w/o us Clif Hogan DO Work Phone: Start: 10-10-2022 End: 10-10-2022 Injection aa&/strd suprascapular nerve Clif Hogan DO Work Phone: Start: 08-21-2022 CBC + DIFF Gala Olmstead OPTICAL WORKER.MACHINE TRACER Work Phone: Start: 08-21-2022 Comprehensive metabolic 2000 panel - Serum or Plasma Gala Olmstead OPTICAL WORKER.MACHINE TRACER Work Phone: Start: 08-21-2022 LIPID PANEL BASIC Gala Olmstead OPTICAL WORKER.MACHINE TRACER Work Phone: Start: 06-26-2022 Us lmtd joint/oth nonvasc xtr strux r-t w/img Julián Clement OPTICAL WORKER.MACHINE TRACER Work Phone: Start: 02-23-2022 Mammography Lazaro Mendez OPTICAL WORKER.MACHINE TRACER Work Phone: Start: 02-03-2022 FLU A/B B/O Ivonne Weinstein OPTICAL WORKER.MACHINE TRACER Work Phone: Start: 12-22-2021 Radiologic exam chest 2 views Lazaro Mendez OPTICAL WORKER.MACHINE TRACER Work Phone: Start: 12-22-2021 Adult depression screening assessment Lazaro Mendez APRN.MACHINE TRACER Work Phone: Start: 01-23-2021 Mammography Lazaro Mendez OPTICAL WORKER.MACHINE TRACER Work Phone: Start: 10-02-[address] NATASHA MARTINEZ Plan of Treatment Date Care Activity Detail Author Start: 05-28-2029 Urine microalbumin profile [facility] Start: 08-21-2027 LIPID SCREEN LIPID SCREEN [facility] Start: 07-19-2026 LIPID SCREEN LIPID SCREEN [facility] Start: 10-12-2025 DIABETES SCREEN DIABETES SCREEN [facility] Start: 08-21-2025 DIABETES SCREEN DIABETES SCREEN [facility] Start: 07-19-2024 DIABETES SCREEN DIABETES SCREEN [facility] Start: 04-25-2024 ANNUAL PCP TEAM CHRONIC DISEASE VISIT ANNUAL PCP TEAM CHRONIC DISEASE VISIT [facility] Start: 04-08-2024 ANNUAL PCP TEAM CHRONIC DISEASE VISIT ANNUAL PCP TEAM CHRONIC DISEASE VISIT [facility] Start: 03-19-2024 ANNUAL PCP TEAM CHRONIC DISEASE VISIT ANNUAL PCP TEAM CHRONIC DISEASE VISIT [facility] Start: 03-19-2024 HEMOGLOBIN/HEMATOCRIT HEMOGLOBIN/HEMATOCRIT [facility] Start: 03-19-2024 SERUM CREATININE SERUM CREATININE [facility] Start: 02-23-2024 ANNUAL PCP TEAM CHRONIC DISEASE VISIT ANNUAL PCP TEAM CHRONIC DISEASE VISIT [facility] Start: 02-23-2024 BP CONTROLLED (<130/80) BP CONTROLLED (<130/80) [facility] Start: 12-18-2023 ANNUAL PCP TEAM CHRONIC DISEASE VISIT ANNUAL PCP TEAM CHRONIC DISEASE VISIT [facility] Start: 10-08-2023 PNEUMOVAX AGE 65 AND OVER WITH 5YR LOOKBACK (#1) PNEUMOVAX AGE 65 AND OVER WITH 5YR LOOKBACK (#1) [facility] Start: 09-18-2023 Hemoglobin A1c/Hemoglobin.total in Blood HBA1C [facility] Start: 08-21-2023 Hepatitis B surface antibody level LDL CHOLESTEROL [facility] Start: 08-07-2023 ANNUAL PCP TEAM CHRONIC DISEASE VISIT ANNUAL PCP TEAM CHRONIC DISEASE VISIT [facility] Start: 08-01-2023 ANNUAL PCP TEAM CHRONIC DISEASE VISIT ANNUAL PCP TEAM CHRONIC DISEASE VISIT [facility] Start: 07-09-2023 End: 04-08-2024 Basic metabolic 2000 panel - Serum or Plasma BASIC METABOLIC PNL Lab Routine Hypertension, essential Hyperlipidemia, mixed Gastroesophageal reflux disease without esophagitis Chronic insomnia Type 2 diabetes mellitus with hyperglycemia, without long-term current use of insulin (HCC) Expected: 07/09/2023 (Approximate), Expires: 04/08/2024 [facility] Work Phone: Immunizations Immunization Date Immunization Notes Care Provider Fa ankita 05-28-2019 tetanus toxoid, redu abdullahi diphtheria toxoid, and acellular pertussis vaccine, adsorbed Lazaro Mendez APRN.MACHINE TRACER Work Phone: [facility] 10-08-2018 influenza, seasonal, injectable, preservative free Lazaro Mendez APRN.MACHINE TRACER Work Phone: [facility] 10-08-2018 pneumococcal polysaccharide vaccine, 23 valent Lazaro Mendez APRN.MACHINE TRACER Work Phone: [facility] 10-08-2018 influenza virus vacc ine, unspecified formulation Clif Hogan DO Work Phone: [facility] Payers Date Payer Category Payer Medicare [id number] 2021 Medicare AETNA MEDICARE A ETNA MEDICARE O [id number] 2021-Present [phone] [address] [place] [address] O [id number] 2021 Medicare [id number] 2021 Medicare [id number] 2020 Unknown ANTHEM BLUE CROS S AND BLUE SHIELD ANTHEM MEDIBLUE HMO [id number] 2020-2021 [address] [place] [address] O [id number] 2008 Medicare [id number] 2008 Medicare MEDICARE MEDICAR E A AND B [id number] 2008-[address] [place] [address] Medicare [id number] 2000 Unknown [id number] 1991 Unknown [facility] [id number] 1991-Present [phone] [address] [address] [place] [address] Indemnity [id number] 1991 Unknown [id number] [id number] 1990 Medicare [id number] 1956 Unknown [id number] 1956 Unknown [id number] 1956 Unknown [id number] 1956 Unknown [id number] 1956 Unknown [id number] 1956 Unknown [id number] Medicare [id number] Medicare [id number] Unknown [id number] Unknown [id number] Unknown [id number] Unknown [id number] Unknown [id number] Unknown [id number] Social History Date Type Detail Facility Start: 01-21-2019 End: 06-22-2022 Tobacco smoking status NHIS Never smoked tobacco [facility] Start: 01-21-2019 End: 06-22-2022 Tobacco use and exposure Smokeless tobacco non-user [facility] Start: 12-22-2021 End: 01-16-2023 Alcohol intake Current drinker of alcohol (finding) [facility] Start: 03-22-2021 History SDOH Alcohol Comment Occasional [facility] Start: 1955 Sex Assigned At Not on file C [facility] Start: 12-12-2021 End: 08-27-2022 Exposure to SARS-CoV-2 (event) Not sure [facility] Sex Assigned At Female [facility] Start: 04-21-2020 End: 07-15-2023 Alcohol intake Ex-drinker (finding) [facility] Start: 03-20-2023 End: 04-08-2023 History of Social function [facility] Start: 03-20-2023 End: 04-08-2023 Tobacco use panel [facility] Adult Depression Screening Assessment 2 [facility] Goals Date Patient Goal Desired Activity /State Personal health goal Functional Status Date Assessment Result Facility 12-31-2021 [facility] 12-31-2021 Functional Status [facility] 12-31-2021 Functional Status [facility] Mental Status Date Assessment Result Facility 12-31-2021 [facility] 12-31[facility]21 [facility] Clinical Notes 06-28-2020 to 08-09-2023 Telephone Encounter - Ivonne Whitney MA - 08/09/2023 10:13 AM ESTTelephone Encounter - Adriana Boo Tech - 07/26/2023 1:38 PM EDTTelephone Encounter - Miriam Sahni - 07/26/2023 10:45 AM EDT Note Date & Type Note Facility 08-09-2023 Miscellaneous Notes Pharmacy faxes requesting refill: Requested Prescriptions Pending Prescriptions Disp Refills DULoxetine (CYMBALTA) 30 mg capsule [Pharmacy Med Name: duloxetine 30 mg capsule,delayed release] 270 capsule 3 Sig: take 3 capsules by mouth once daily Date of last visit: 04/08/2023 Phone #: [phone] (home) [phone] (work) [phone] (cell) The patients preferred pharmacy has been captured for this encounter? Yes Ivonne Whitney MA documented in this encounter [facility] 07-26-2023 Miscellaneous Notes No show letter #1 sent. Germán Jain Patient missed New Patient Appointment on 07/26/23 w/Dr Ramirez. Message was left about this appointment. Patient was marked No Show. Miriam Sahni July 26, 2023 10:46 AM documented in this encounter [facility] 07-23-2023 Miscellaneous Notes Summary: NO SHOW 07/23/23 LETTER #1 MAILED PATIENT CALLED TO INFORM THAT UNABLE TO ATTEND APPOINTMENT 07/23/23 DUE TO ILLNESS, SEVERAL HOURS AFTER APPOINTMENT TIME Hemalatha Hernandez documented in this encounter [facility] 07-15-2023 Note HNO ID: [id number] Author: Clif Hogan, DO Service: ? Author Type: Physician Type: Progress Notes Filed: 07/15/2023 4:34 PM Note Text: Summary: Pain Management follow-up DATE: July 15, 2023 DOI: 10/15/2000 Claim#: [id number] Allowed Dx: S46.911A, S53.401A, S53.491A, M75.51, S53.491A, M75.101, M77.11, M12.531, M75.21, S53.431A, F45.42, F32.9 MCO: Medical Administrators Chief Complaint: Right Shoulder Pain ___ History of Present Illness: Clau French is a 68 year old female being seen at [facility] for a evaluation and/or management of their chronic pain. The patient was last seen in the office on 04/17/2023 by Faiza Aragon NP, and the plan of care was as follows: Continue Percocet 10/325 TID and Oxycontin 15 mg every 8 hours OARRS reviewed and consistent UDS reviewed and consistent Patient states her private insurance pays for percocet and oxycontin. Please send PA for oxycontin through her private insurance Order UDS through her private insurance Instructed to call [facility] to check on TENS unit order Keep active as possibe Continue tizanidine Continue phenergan Continue cymbalta from PCP Follow-up in 3 months in office for [facility] right shoulder pain with Dr Hogan Pain level: 03/09 Last right suprascapular nerve block was on April 04. It helped for about 2 1/2 months. She had about 40% relief. Denies any ED visits or hospitalizations since last office visit Reports pain worse with activities of daily living Reports pain better with ice, medications Describes pain in right shoulder as constant sharp sensation that radiates into arm and fingers. States she is having pain in left shoulder similar to right shoulder. She notices that pain in her right hand has gotten worse. She reports weakness in her right hand. She feels fatty nodules underneath her skin. She has been experiencing this for a while now. States has numbness and tingling in both hands. Denies falls States she did not receive her TENS unit. She did not have a time to call [facility]. Last UDS: Consistent No results found for: SUMM Summary Report (Summary) Date Value Ref Range Status 02/22/2022 FINAL Final Comment: ==== TOXASSURE COMP DRUG ANALYSIS,UR ==== Test Result Flag Units Drug Present Oxycodone 3913 ng/mg creat Oxymorphone 982 ng/mg creat Noroxycodone 1874 ng/mg creat Noroxymorphone 215 ng/mg creat Sources of oxycodone are scheduled prescription medications. Oxymorphone, noroxycodone, and noroxymorphone are expected metabolites of oxycodone. Oxymorphone is also available as a scheduled prescription medication. Tizanidine PRESENT Zolpidem PRESENT Zolpidem Acid PRESENT Zolpidem acid is an expected metabolite of zolpidem. Duloxetine PRESENT Acetaminophen PRESENT Promethazine PRESENT ==== Test Result Flag Units Ref Range Creatinine 105 mg/dL >=20 ==== Declared Medications: Medication list was not provided. ==== For clinical consultation, please call . ==== Chronic Pain Functional Assessment Tools Pain Disability Index: Pain Disability Index 07/15/2023 Family/Home Responsibilities 5 Recreation 5 Social Activity 5 Occupation 5 Sexual Behavior 5 Self Care 5 Life Support Activity 5 PDI Score 35 Pain Enjoyment of Life and General Activity Scale (0-10): PEG: A Three-Item Scale Assessing Pain Intensity and Interference What number best describes your pain on average in the past week?: 7 (07/15/2023 3:00 PM) What number best describes how, during the past week, pain has interfered with your enjoyment of life?: 7 (07/15/2023 3:00 PM) What number best describes how, during the past week, pain has interfered with your general activity?: 6 (07/15/2023 3:00 PM) REVIEW OF SYSTEMS: GENERAL: No weight loss, malaise or fevers RESPIRATORY: Negative for cough, hemoptysis, wheezing, COPD, dyspnea or shortness of breath. CARDIOVASCULAR: Negative for chest pain, leg swelling, hypertension, CHF or palpitations GI: No nausea, vomiting, or diarrhea. MUSCULOSKELETAL: Positive for right shoulder pain that radiates into arm and fingers. Positive for right hand pain and weakness. Positive numbness and tingling in bilateral hands. SKIN: Positive subcutaneous nodules (more content not included)... [facility] 07-15-2023 Miscellaneous Notes Images from the original note were not included. Geraldine Approved Prior authorization approved Payer: Human [id number] ZULMA Case: [id number], Status: Approved, Coverage Starts on: 09/30/2022 12:00:00 AM, Coverage Ends on: 09/29/2024 12:00:00 AM. Questions? Contact . Approval Details Authorization number: 0 Authorized from September 30, 2022 to September 29, 2024 Marita Banuelos MA documented in this encounter [facility] 07-15-2023 History of Presen t illness Narrative Summary: Pain Management follow-up DATE: July 15, 2023 DOI: 10/15/2000 Claim#: [id number] Allowed Dx: S46.911A, S53.401A, S53.491A, M75.51, S53.491A, M75.101, M77.11, M12.531, M75.21, S53.431A, F45.42, F32.9 MCO: Medical Administrators Chief Complaint: Right Shoulder Pain ___ History of Present Illness: Clau French is a 68 year old female being seen at [facility] for a evaluation and/or management of their chronic pain. The patient was last seen in the office on 04/17/2023 by Faiza Aragon NP, and the plan of care was as follows: Continue Percocet 10/325 TID and Oxycontin 15 mg every 8 hours OARRS reviewed and consistent UDS reviewed and consistent Patient states her private insurance pays for percocet and oxycontin. Please send PA for oxycontin through her private insurance Order UDS through her private insurance Instructed to call [facility] to check on TENS unit order Keep active as possibe Continue tizanidine Continue phenergan Continue cymbalta from PCP Follow-up in 3 months in office for [facility] right shoulder pain with Dr Hogan Pain level: 03/09 Last right suprascapular nerve block was on April 04. It helped for about 2 1/2 months. She had about 40% relief. Denies any ED visits or hospitalizations since last office visit Reports pain worse with activities of daily living Reports pain better with ice, medications Describes pain in right shoulder as constant sharp sensation that radiates into arm and fingers. States she is having pain in left shoulder similar to right shoulder. She notices that pain in her right hand has gotten worse. She reports weakness in her right hand. She feels fatty nodules underneath her skin. She has been experiencing this for a while now. States has numbness and tingling in both hands. Denies falls States she did not receive her TENS unit. She did not have a time to call [facility]. Last UDS: Consistent No results found for: SUMM Summary Report (Summary) Date Value Ref Range Status 02/22/2022 FINAL Final Comment: ==== TOXASSURE COMP DRUG ANALYSIS,UR ==== Test Result Flag Units Drug Present Oxycodone 3913 ng/mg creat Oxymorphone 982 ng/mg creat Noroxycodone 1874 ng/mg creat Noroxymorphone 215 ng/mg creat Sources of oxycodone are scheduled prescription medications. Oxymorphone, noroxycodone, and noroxymorphone are expected metabolites of oxycodone. Oxymorphone is also available as a scheduled prescription medication. Tizanidine PRESENT Zolpidem PRESENT Zolpidem Acid PRESENT Zolpidem acid is an expected metabolite of zolpidem. Duloxetine PRESENT Acetaminophen PRESENT Promethazine PRESENT ==== Test Result Flag Units Ref Range Creatinine 105 mg/dL >=20 ==== Declared Medications: Medication list was not provided. ==== For clinical consultation, please call . ==== Chronic Pain Functional Assessment Tools Pain Disability Index: Pain Disability Index 07/15/2023 Family/Home Responsibilities 5 Recreation 5 Social Activity 5 Occupation 5 Sexual Behavior 5 Self Care 5 Life Support Activity 5 PDI Score 35 Pain Enjoyment of Life and General Activity Scale (0-10): PEG: A Three-Item Scale Assessing Pain Intensity and Interference What number best describes your pain on average in the past week?: 7 (07/15/2023 3:00 PM) What number best describes how, during the past week, pain has interfered with your enjoyment of life?: 7 (07/15/2023 3:00 PM) What number best describes how, during the past week, pain has interfered with your general activity?: 6 (07/15/2023 3:00 PM) REVIEW OF SYSTEMS: GENERAL: No weight loss, malaise or fevers RESPIRATORY: Negative for cough, hemoptysis, wheezing, COPD, dyspnea or shortness of breath. CARDIOVASCULAR: Negative for chest pain, leg swelling, hypertension, CHF or palpitations GI: No nausea, vomiting, or diarrhea. MUSCULOSKELETAL: Positive for right shoulder pain that radiates into arm and fingers. Positive for right hand pain and weakness. Positive numbness and tingling in bilateral hands. SKIN: Positive subcutaneous nodules PAST MEDICAL HISTORY Diagnosis Date Anxiety Arthritis Chicken pox Depressed mood Diabetes mellitus (HCC) 03/20/2023 Diverticulitis GERD (gastroesophageal reflux disease) Hyperlipidemia, acquired Hypertension Internal hemorrhoids Migraine Skin lesion of face PAST SURGICAL HISTORY Procedure Laterality Date SECTION HX x2 CHOLECYSTECTOMY VAGINAL HYSTERECTOMY UTERUS 250 GM/< XR CERVICAL FUSION OR FAMILY HISTORY Problem Relation Age of Onset Heart disease Father Coronary Artery Disease Father Hypertension Father Heart Attack Father Hypertension Mother Heart disease Mother Heart disease Brother Diabetes Brother Hypertension Brother Diabetes Sister Cancer Maternal Aunt Social History Tobacco Use Smoking status: Never Smokeless tobacco: Never Vaping Use Vaping Use: Never used Substance Use Topics Alcohol use: Not Currently Comment: Occasional Drug use: Not Currently Work Status: working Allergies: Doxepin Other: See Comments Iodinated Contrast * Hives Morphine Hives Current Outpatient Medications Medication Sig albuterol HFA (PROVENTIL HFA, VENTOLIN HFA) 90 mcg/actuation inhaler Inhale 1 Puff as instructed every 6 hours as needed. atorvastatin (LIPITOR) 10 mg tablet Take 1 tablet by mouth once daily. azithromycin (ZITHROMAX Z-AASHISH) 250 mg tablet 2 tablets by mouth first day then 1 tablet the next 4 days benzonatate (TESSALON PERLE) 100 mg capsule Take 1 capsule by mouth every 6 hours as needed for cough. carvedilol (COREG) 12.5 mg tablet TAKE 1 TABLET BY MOUTH TWICE DAILY celecoxib (CELEBREX) 200 mg capsule Take 1 capsule by mouth two times a day. DULoxetine (CYMBALTA) 30 mg capsule Take 3 capsules by mouth once daily. hydrOXYzine HCl (ATARAX) 10 mg tablet Take 1 tablet by mouth three times daily as needed for anxiety. LORazepam (ATIVAN) 1 mg tablet Take 1 mg by mouth every 6 hours as needed. MULTIVITAMIN ORAL Take 1 tablet by mouth once daily. naloxone 4 mg/actuation nasal spray (NARCAN) Use 1 spray in one nostril as needed for overdose. May repeat every 2 to 3 min in alternating nostrils until medical assistance is available [START ON 07/21/2023] oxyCODONE ER (OXYCONTIN) 15 mg 12 hr tablet Take 1 tablet by mouth every 8 hours for 30 days. Do not start before July 21, 2023. [START ON 07/17/2023] oxyCODONE-acetaminophen (PERCOCET 10) 10-325 mg tablet Take 1 tablet by mouth three times a day as needed for pain for up to 30 days. Do not start before July 17, [address]23. pantoprazole DR (PROTONIX) 40 mg tablet TAKE 1 TABLET BY MOUTH EVERY DAY promethazine (PHENERGAN) 25 mg tablet Take 1 tablet by mouth every 8 hours as needed for nausea/vomiting for up to 15 days. SUMAtriptan (IMITREX) 100 mg tablet Take 1 tablet by mouth as needed. tiZANidine (ZANAFLEX) 4 mg tablet Take one pill by mouth 3 times a day as needed Current Facility-Administered Medications Medication Dose Route Frequency galcanezumab-gnlm pnij 1 Each (EMGALITY) 1 Each SUBCUTANEOUS q 1 MONTH PHYSICAL EXAMINATION: Vitals: BP 134/69 Pulse 83 Resp 19 Ht 5' 0 (1.52m) Wt 148 lb (67.1kg) SpO2 96% BMI 28.90 kg/(m^2). GENERAL: General appearance: Well appearing, in no acute distress, alert. Psych: Mood and affect appropriate. Weepy about not having oxycontin; then argumentative about pain medications being sent through [facility] instead of her private insurance Skin: Skin color, texture, turgor normal, no rashes or lesions. Pulm: no conversational shortness of breath or cough Musculoskeletal: Inspection of the right shoulder is largely unremarkable. There are no scars, masses or abnormalities noted. There is no effusion noted. Range of motion in the extremity/joint is mildly reduced. There is mild tenderness upon palpation of the anterior and posterior shoulder, AC joint, scapula and clavicle. Positive Ervin sign on right. Positive can test on right. Sensation is intact to the extremity. There is no hypo/hypersensitivity noted. Skin is warm and dry.There is peripheral edema noted to her melinda hands. Radial pulses present melinda. There are no skin changes or atrophy noted. No obvious sign of recent injection ASSESSMENT: Lateral epicondylitis, right elbow (primary encounter diagnosis) Traumatic arthropathy, right wrist Other sprain of right elbow, initial encounter Bicipital tendinitis, right shoulder Allowed Dx: S46.911A, S53.401A, S53.491A, M75.51, S53.491A, M75.101, M77.11, M12.531, M75.21, S53.431A, F45.42, F32.9 Patient is stable. Chronic pain is persistent. Medications are helping Clau French to have an improved quality of life. Patient compliance with Opioid Contract: patient is compliant PLAN: The patient understands the goal of our treatment is a reduction in pain and/or an improved level of functioning with activities of daily living. If at any time the patient does not feel the medications are helping them to achieve these goals, the medications may be discontinued. The patient reports a reduction in pain and/or an improved level of functioning with activities of daily living, denies any significant adverse effects, is compliant with the pain management agreement and there are no signs of medication misuse, abuse or diversion; therefore, the medications will be continued. Scribed for Clif Hogan DO, by Eva Silveira medical record coder, July 15, 2023. documented in this encounter [facility] 07-15-2023 Instructions Clif Hogan DO - 07/15/2023 3:47 PM EDT Continue Percocet 10/325 TID and Oxycontin 15 mg every 8 hours OARRS reviewed and consistent UDS reviewed and consistent Instructed to call [facility] to check on TENS unit order Keep active as possible Continue tizanidine Continue phenergan Continue cymbalta from PCP Submit C-23 for for transfer care to Dr. Fuentes in 3 months. Submit C9 for right suprascapular nerve block Continue Celebrex 200 mg 1 p.o. twice daily as needed per PCP documented in this encounter [facility] 07-01-2023 Miscellaneous Notes I spoke to Clau regarding the message below. After informing her of the process to be able to do so she had declined to schedule under her private insurance. Melania July 01, 2023 1:32 PM She was told that an office visit under her private insurance would have to be made in order to submit information to her insurance about her left shoulder. She will also need an x-ray of the left shoulder and physical therapy first. Clau June called and stated she spoke with you about having a left shoulder injection using her private insurance. Please advise. Melania Sandoval June 27, 2023 2:33 PM documented in this encounter [facility] 06-27-2023 Miscellaneous Notes Prescription sent Patient called in regards to her arthritis hurting really bad. Patient is wondering if Dr Weiss could send in Celebrex for her? Please advise Marie Menon MA documented in this encounter [facility] 06-18-2023 Note HNO ID: [id number] Author: Colten Gómez MD Service: ? Author Type: Physician Type: Progress Notes Filed: 06/19/2023 2:07 PM Note Text: June 18, 2023 Standing PSG Orders signed in the last 90 days None Future PSG Orders signed in the last 90 days Ordered Auth. provider POLYSOMNOGRAM (PSG) [[id number]] 04/08/23 Nita Weiss II, MD Assoc. diagnoses: CEDRICK (obstructive sleep apnea) [G47.33], Snoring [R06.83], Excessive daytime sleepiness [G47.19] Q: Indications - Select All That Apply: A: Obstructive sleep apnea Q: STOP-BANG conditions - Select All That Apply: A: AGE > 50 A2: high blood PRESSURE Q: Comorbidities: A: Chronic opioid use Q: Is the patient non-ambulatory or will they be accompanied by a caregiver?: A: No Q: Current use of supplemental oxygen during sleep period?: A: No Q: Add supplemental oxygen if needed per sleep lab policy?: A: Yes Q: Is this a repeat Sleep Study?: A: No All Prior Sleep Studies (past 365 days) Some values may be hidden. Unless noted otherwise, only the newest values recorded on each date are displayed. Sleep Studies HOME SLEEP APNEA TEST (HSAT) Future Expected: Expires: 08/30/23 POLYSOMNOGRAM (PSG) Future Expected: Expires: 04/07/24 BMI Readings from Last 2 Encounters: 04/25/23 : 28.51 kg/m? 04/17/23 : 28.83 kg/m? PAST MEDICAL HISTORY Diagnosis Date Anxiety Arthritis Chicken pox Depressed mood Diabetes mellitus (HCC) 03/20/2023 Diverticulitis GERD (gastroesophageal reflux disease) Hyperlipidemia, acquired Hypertension Internal hemorrhoids Migraine Skin lesion of face The medical record was reviewed to determine if the proposed sleep study conforms to the AASM Practice Parameters for the Indications for Polysomnography and Related Procedures, or if the sleep study is indicated for other reasons. Indications for study: CEDRICK suspected without comorbid medical or sleep disorders Sleep study to be performed: Polysomnogram Special instructions: None-follow laboratory protocol Target REM/supine sleep Jessica Rebollar - Sleep Medicine Staff Note: I have read the above protocol, edited as needed, and agree to the plan. Colten Gómez MD 2:07 PM, 06/19/2023 [facility] 06-18-2023 History of Presen t illness Narrative June 18, 2023 Standing PSG Orders signed in the last 90 days None Future PSG Orders signed in the last 90 days Ordered Auth. provider POLYSOMNOGRAM (PSG) [[id number]] 04/08/23 Nita Weiss II, MD Assoc. diagnoses: CEDRICK (obstructive sleep apnea) [G47.33], Snoring [R06.83], Excessive daytime sleepiness [G47.19] Q: Indications - Select All That Apply: A: Obstructive sleep apnea Q: STOP-BANG conditions - Select All That Apply: A: AGE > 50 A2: high blood PRESSURE Q: Comorbidities: A: Chronic opioid use Q: Is the patient non-ambulatory or will they be accompanied by a caregiver?: A: No Q: Current use of supplemental oxygen during sleep period?: A: No Q: Add supplemental oxygen if needed per sleep lab policy?: A: Yes Q: Is this a repeat Sleep Study?: A: No All Prior Sleep Studies (past 365 days) Some values may be hidden. Unless noted otherwise, only the newest values recorded on each date are displayed. Sleep Studies HOME SLEEP APNEA TEST (HSAT) Future Expected: Expires: 08/30/23 POLYSOMNOGRAM (PSG) Future Expected: Expires: 04/07/24 BMI Readings from Last 2 Encounters: 04/25/23 : 28.51 kg/m 04/17/23 : 28.83 kg/m PAST MEDICAL HISTORY Diagnosis Date Anxiety Arthritis Chicken pox Depressed mood Diabetes mellitus (HCC) 03/20/2023 Diverticulitis GERD (gastroesophageal reflux disease) Hyperlipidemia, acquired Hypertension Internal hemorrhoids Migraine Skin lesion of face The medical record was reviewed to determine if the proposed sleep study conforms to the AASM Practice Parameters for the Indications for Polysomnography and Related Procedures, or if the sleep study is indicated for other reasons. Indications for study: CEDRICK suspected without comorbid medical or sleep disorders Sleep study to be performed: Polysomnogram Special instructions: None-follow laboratory protocol Target REM/supine sleep Jessica Rebollar - Sleep Medicine Staff Note: I have read the above protocol, edited as needed, and agree to the plan. Colten Gómez MD 2:07 PM, 06/19/2023 June 12, 2023 An order has been received for Polysomnogram (PSG) from ilan Rios II. [facility] Staff. Visit prep complete. Comments :No The sleep study is scheduled for 06/27/2023. Insurance: Payor: [employer] MEDICARE / Plan: apstrata / Product Type: HMO / Payer/Plan Subscr Sex Relation Sub. Ins. ID Effective Group Num 1. [employer] MEDICA* Felipe RODRIGUES* 1955 Female Self [id number] [birth year] [id number] [address] [address] 2. - [place] Felipe RODRIGUES* 1955 Female Self [id number] 07/15/1990 [address] [address] Smita Kay documented in this encounter [facility] 06-14-2023 Miscellaneous Notes Called patient to inform of Dr. Weiss message. Patient states understanding and will call with any further issues. Wanda Jeronimo MA Done Patient called requesting medication due to fever, cough with yellow mucous, sore throat and raspy voice x 3 days. Please advise Wanda Jeronimo MA documented in this encounter [facility] 06-12-2023 Note HNO ID: [id number] Author: mSita Kay Service: ? Author Type: ? Type: Progress Notes Filed: 06/19/2023 2:07 PM Note Text: June 12, 2023 An order has been received for Polysomnogram (PSG) from ilan Rios II. [facility] Staff. Visit prep complete. Comments :No The sleep study is scheduled for 06/27/2023. Insurance: Payor: HU[employer]NA MEDICARE / Plan: [employer]NA GOLD PLUS / Product Type: HMO / Payer/Plan Subscr Sex Relation Sub. Ins. ID Effective Group Num 1. [employer] MEDICA* [place] URIARTE* 1955 Female Self [id number] 02/[birth year] [id number] [address] [address] 2. [place] Felipe RODRIGUES* 1955 Female Self [id number] 07/15/1990 [address] [address] [facility] Miscellaneous Notes The following approved medication requests have been transmitted electronically. Requested Prescriptions Signed Prescriptions Disp Refills oxyCODONE-acetaminophen (PERCOCET 10) 10-325 mg tablet 90 tablet 0 Sig: Take 1 tablet by mouth three times daily as needed for pain for up to 30 days. Do not start before June 17, 2023. Authorizing Provider: GEORGE MOONEY oxyCODONE ER (OXYCONTIN) 15 mg 12 hr tablet 90 tablet 0 Sig: Take 1 tablet by mouth every 8 hours for 30 days. Do not start before June 21, 2023. Authorizing Provider: GEORGE MOONEY APRN.CNP Patient phones requesting refills as follows: Requested Prescriptions Pending Prescriptions Disp Refills oxyCODONE-acetaminophen (PERCOCET 10) 10-325 mg tablet 90 tablet 0 Sig: Take 1 tablet by mouth three times daily as needed for pain for up to 30 days. oxyCODONE ER (OXYCONTIN) 15 mg 12 hr tablet 90 tablet 0 Sig: Take 1 tablet by mouth every 8 hours for 30 days. Last UDS: No results found for: SUMM @FLOW([id number])@ No results found for: SUMM Summary Report (Summary) Date Value Ref Range Status 02/22/2022 FINAL Final Comment: ==== TOXASSURE COMP DRUG ANALYSIS,UR ==== Test Result Flag Units Drug Present Oxycodone 3913 ng/mg creat Oxymorphone 982 ng/mg creat Noroxycodone 1874 ng/mg creat Noroxymorphone 215 ng/mg creat Sources of oxycodone are scheduled prescription medications. Oxymorphone, noroxycodone, and noroxymorphone are expected metabolites of oxycodone. Oxymorphone is also available as a scheduled prescription medication. Tizanidine PRESENT Zolpidem PRESENT Zolpidem Acid PRESENT Zolpidem acid is an expected metabolite of zolpidem. Duloxetine PRESENT Acetaminophen PRESENT Promethazine PRESENT ==== Test Result Flag Units Ref Range Creatinine 105 mg/dL >=20 ==== Declared Medications: Medication list was not provided. ==== For clinical consultation, please call . ==== Please review and advise. Pavithra Miles RN documented in this encounter [facility] 05-15-2023 Miscellaneous Notes The following approved medication requests have been transmitted electronically. Requested Prescriptions Signed Prescriptions Disp Refills oxyCODONE-acetaminophen (PERCOCET 10) 10-325 mg tablet 90 tablet 0 Sig: Take 1 tablet by mouth three times daily as needed for pain for up to 30 days. Do not start before May 18, 2023. Authorizing Provider: FAIZA ARAGON APRN.MACHINE BUNCH MAKER Pt called and [facility] [facility] does not have this in stock. RX attached. documented in this encounter [facility] 04-25-2023 Note HNO ID: [id number] Author: Lazaro Mendez APRN.MACHINE TRACER Service: ? Author Type: Nurse Practitioner Type: Progress Notes Filed: 04/25/2023 11:50 AM Note Text: Clau French is a 67 year old female here today acutely because of having: Sore Throat, Dizziness, Fatigue, and Fever Patient has symptoms of Fever (102 at home), nasal congestion, runny nose, sore throat, cough, ear pain, fever, and fatigue. Symptoms on going for 3 days. Patient has tried motrin. Exposed to anyone with similar illness, unknown. Patient is not a smoker. Denies SOB, chest pain, dizziness, nausea, vomiting, diarrhea. Sore Throat Associated symptoms include congestion and coughing. Pertinent negatives include no abdominal pain, diarrhea, ear pain, headaches, shortness of breath or vomiting. Dizziness Associated symptoms include dizziness, fatigue and a fever. Pertinent negatives include no abdominal pain, chest pain, headaches, nausea, palpitations, shortness of breath or vomiting. Fatigue Associated symptoms include congestion, coughing, fatigue, a fever and a sore throat. Pertinent negatives include no abdominal pain, chest pain, chills, headaches, nausea, rash or vomiting. Fever Associated symptoms include congestion, sore throat and cough. Pertinent negatives include no chest pain, no diarrhea, no vomiting and no headaches. Review of Systems Constitutional: Positive for fatigue, fever and malaise/fatigue. Negative for chills. HENT: Positive for congestion, postnasal drip, rhinorrhea and sore throat. Negative for ear pain and sinus pain. Respiratory: Positive for cough. Negative for chest tightness, shortness of breath and wheezing. Cardiovascular: Negative for chest pain, palpitations and leg swelling. Gastrointestinal: Negative for abdominal pain, diarrhea, nausea and vomiting. Skin: Negative for color change and rash. Neurological: Positive for dizziness. Negative for headaches. BP 162/71 (BP Site: Left Arm, BP Position: Sitting, BP Cuff Size: Extra Large Adult) Pulse 75 Temp 36.9 ?C (98.4 ?F) (Oral) Wt 66.2 kg (146 lb) SpO2 97% BMI 28.51 kg/m? BMI 28.51 kg/(m2) ALLERGIES Allergen Reactions Doxepin Other: See Comments Iodinated Contrast * Hives Morphine Hives Physical Exam Constitutional: Appearance: Normal appearance. HENT: Right Ear: Ear canal and external ear normal. Tympanic membrane is bulging. Left Ear: Ear canal and external ear normal. Tympanic membrane is bulging. Nose: Congestion and rhinorrhea present. Right Sinus: No maxillary sinus tenderness or frontal sinus tenderness. Left Sinus: No maxillary sinus tenderness or frontal sinus tenderness. Mouth/Throat: Mouth: Mucous membranes are moist. Pharynx: Posterior oropharyngeal erythema (with white lesions) present. Cardiovascular: Rate and Rhythm: Normal rate and regular rhythm. Heart sounds: Normal heart sounds. No murmur heard. Pulmonary: Effort: Pulmonary effort is normal. No respiratory distress. Breath sounds: Normal breath sounds. No wheezing. Skin: General: Skin is warm and dry. Neurological: Mental Status: She is alert and oriented to person, place, and time. ASSESSMENT/PLAN: 1. Pharyngitis, unspecified etiology - ICD9: 462, ICD10: J02.9 (primary diagnosis) - suspect strep - Rapid Strep negative in the office today - Discussed supportive care treatment with fluids, rest and analgesia. - AZITHROMYCIN 250 MG TABLET 2. Sore throat - ICD9: 462, ICD10: J02.9 - RAPID STREP TEST B/O Lazaro Mendez CNP Follow Up: Return if symptoms worsen or fail to improve. Prescription instructions reviewed with patient as applicable. Patient advised if symptoms do not improve or if symptoms worsen sooner, to contact their primary care physician. Potential red flag symptoms discussed with the patient. Reviewed appropriate action plan to take if red flag symptoms occur. Patient agreeable to treatment plan. Voice recognition software utilized. Minor grammatical and/or spelling errors may exist. Portions of this note have been entered by ancillary staff. I have reviewed and when necessary edited, so that they are an adequate record of my encounter with this patient. [facility] 04-25-2023 History of Presen t illness Narrative Clau French is a 67 year old female here today acutely because of having: Sore Throat, Dizziness, Fatigue, and Fever Patient has symptoms of Fever (102 at home), nasal congestion, runny nose, sore throat, cough, ear pain, fever, and fatigue. Symptoms on going for 3 days. Patient has tried motrin. Exposed to anyone with similar illness, unknown. Patient is not a smoker. Denies SOB, chest pain, dizziness, nausea, vomiting, diarrhea. Sore Throat Associated symptoms include congestion and coughing. Pertinent negatives include no abdominal pain, diarrhea, ear pain, headaches, shortness of breath or vomiting. Dizziness Associated symptoms include dizziness, fatigue and a fever. Pertinent negatives include no abdominal pain, chest pain, headaches, nausea, palpitations, shortness of breath or vomiting. Fatigue Associated symptoms include congestion, coughing, fatigue, a fever and a sore throat. Pertinent negatives include no abdominal pain, chest pain, chills, headaches, nausea, rash or vomiting. Fever Associated symptoms include congestion, sore throat and cough. Pertinent negatives include no chest pain, no diarrhea, no vomiting and no headaches. Review of Systems Constitutional: Positive for fatigue, fever and malaise/fatigue. Negative for chills. HENT: Positive for congestion, postnasal drip, rhinorrhea and sore throat. Negative for ear pain and sinus pain. Respiratory: Positive for cough. Negative for chest tightness, shortness of breath and wheezing. Cardiovascular: Negative for chest pain, palpitations and leg swelling. Gastrointestinal: Negative for abdominal pain, diarrhea, nausea and vomiting. Skin: Negative for color change and rash. Neurological: Positive for dizziness. Negative for headaches. BP 162/71 (BP Site: Left Arm, BP Position: Sitting, BP Cuff Size: Extra Large Adult) Pulse 75 Temp 36.9 C (98.4 F) (Oral) Wt 66.2 kg (146 lb) SpO2 97% BMI 28.51 kg/m BMI 28.51 kg/(m^2) ALLERGIES Allergen Reactions Doxepin Other: See Comments Iodinated Contrast * Hives Morphine Hives Physical Exam Constitutional: Appearance: Normal appearance. HENT: Right Ear: Ear canal and external ear normal. Tympanic membrane is bulging. Left Ear: Ear canal and external ear normal. Tympanic membrane is bulging. Nose: Congestion and rhinorrhea present. Right Sinus: No maxillary sinus tenderness or frontal sinus tenderness. Left Sinus: No maxillary sinus tenderness or frontal sinus tenderness. Mouth/Throat: Mouth: Mucous membranes are moist. Pharynx: Posterior oropharyngeal erythema (with white lesions) present. Cardiovascular: Rate and Rhythm: Normal rate and regular rhythm. Heart sounds: Normal heart sounds. No murmur heard. Pulmonary: Effort: Pulmonary effort is normal. No respiratory distress. Breath sounds: Normal breath sounds. No wheezing. Skin: General: Skin is warm and dry. Neurological: Mental Status: She is alert and oriented to person, place, and time. ASSESSMENT/PLAN: 1. Pharyngitis, unspecified etiology - ICD9: 462, ICD10: J02.9 (primary diagnosis) - suspect strep - Rapid Strep negative in the office today - Discussed supportive care treatment with fluids, rest and analgesia. - AZITHROMYCIN 250 MG TABLET 2. Sore throat - ICD9: 462, ICD10: J02.9 - RAPID STREP TEST B/O Lazaro Mendez CNP Follow Up: Return if symptoms worsen or fail to improve. Prescription instructions reviewed with patient as applicable. Patient advised if symptoms do not improve or if symptoms worsen sooner, to contact their primary care physician. Potential red flag symptoms discussed with the patient. Reviewed appropriate action plan to take if red flag symptoms occur. Patient agreeable to treatment plan. Voice recognition software utilized. Minor grammatical and/or spelling errors may exist. Portions of this note have been entered by ancillary staff. I have reviewed and when necessary edited, so that they are an adequate record of my encounter with this patient. documented in this encounter [facility] 04-22-2023 Miscellaneous Notes Pharmacy faxes requesting refill: Requested Prescriptions Pending Prescriptions Disp Refills carvedilol (COREG) 12.5 mg tablet [Pharmacy Med Name: carvedilol 12.5 mg tablet] 60 tablet 4 Sig: TAKE 1 TABLET BY MOUTH TWICE DAILY Date of last visit:04/08/2023 Phone #: [phone] (home) [phone] (work) [phone] (cell) The patients preferred pharmacy has been captured for this encounter? yes documented in this encounter [facility] 04-17-2023 Miscellaneous Notes I think I need oxycontin (ER) done as well. Patient will need to be contacted for her to contact her insurance. . TY Items addressed in this encounter: Prior Authorization Pa sent for oxycodone ir through cover my meds There is an EOC that was clinically denied within the last 60 days. This request needs to be sent to the Grievance and Appeals Dept. at [facility]. Appeal requests must come from the member or the provider. Stephens: [id number] - [place] Please advise, appeal has to be done by provider or patient. Able to close encounter. Mel Cartwright MA April 17, 2023 3:01 PM 3:01 PM documented in this encounter [facility] 04-17-2023 Note HNO ID: [id number] Author: Faiza Aragon APRN.[employer] Service: ? Author Type: Clinical Nurse Specialist Type: Progress Notes Filed: 04/17/2023 2:30 PM Note Text: SUBJECTIVE: Clau French presents to [facility] for a follow-up appointment for right shoulder pain [facility] Last seen by me on 01/16/23 with following plan of care: Continue Percocet 10/325 TID and Oxycontin 15 mg every 8 hours OARRS reviewed and consistent UDS reviewed and consistent C9 and schedule right suprascapular nerve block Submit C9 for TENS unit for right shoulder at least 3 times a day for about an hour Keep active as possibe Continue tizanidine Continue phenergan Continue cymbalta from PCP Follow-up in 3 months in office for [facility] right shoulder pain Last procedure 04/04/23 right shoulder injection Pain level:9-10/10 States she had 50% relief from injection Denies any ED visits or hospitalizations since last office visit Reports pain worse with activities of daily living Reports pain better with ice, medications Describes pain in right shoulder as constant sharp sensation that radiates arm to fingers. States she is having pain in left shoulder similar to right shoulder States has numbness and tingling in both hands Denies falls States she did not receive TENS unit REVIEW OF SYSTEMS: GENERAL: No weight loss, malaise or fevers. HEENT: Negative for frequent or significant headaches. RESPIRATORY: Negative for cough, wheezing or shortness of breath. CARDIOVASCULAR: Negative for chest pain, leg swelling or palpitations. GI: Negative for abdominal discomfort, blood in stools or black stools or change in bowel habits. Hx diverticulitis Gu:denies issues Past Medical History: PAST MEDICAL HISTORY Diagnosis Date Anxiety Arthritis Chicken pox Depressed mood Diabetes mellitus (HCC) 03/20/2023 Diverticulitis GERD (gastroesophageal reflux disease) Hyperlipidemia, acquired Hypertension Internal hemorrhoids Migraine Skin lesion of face Past Surgical History: PAST SURGICAL HISTORY Procedure Laterality Date SECTION HX x2 CHOLECYSTECTOMY VAGINAL HYSTERECTOMY UTERUS 250 GM/< XR CERVICAL FUSION OR Family History: FAMILY HISTORY Problem Relation Age of Onset Heart disease Father Coronary Artery Disease Father Hypertension Father Heart Attack Father Hypertension Mother Heart disease Mother Heart disease Brother Diabetes Brother Hypertension Brother Diabetes Sister Cancer Maternal Aunt Social History: Social History Tobacco Use Smoking status: Never Smokeless tobacco: Never Vaping Use Vaping Use: Never used Substance Use Topics Alcohol use: Not Currently Comment: Occasional Drug use: Not Currently OBJECTIVE: BP 169/72 Pulse 70 Wt 147 lb 9.6 oz (67.0kg) SpO2 96% PHYSICAL EXAMINATION: General appearance: Well appearing, in no acute distress, alert. Psych: Mood and affect appropriate. Weepy about not having oxycontin; then argumentative about pain medications being sent through [facility] instead of her private insurance Skin: Skin color, texture, turgor normal, no rashes or lesions. Pulm: no conversational shortness of breath or cough GI: Abdomen soft and non-tender. Musculoskeletal: Inspection of the right shoulder is largely unremarkable. There are no scars, masses or abnormalities noted. There is no effusion noted. Range of motion in the extremity/joint is mildly reduced. There is mild tenderness upon palpation of the anterior and posterior shoulder, AC joint, scapula and clavicle. Positive Ervin sign on right. Positive can test on right. Sensation is intact to the extremity. There is no hypo/hypersensitivity noted. Skin is warm and dry.There is peripheral edema noted to her melinda hands. Radial pulses present melinda. There are no skin changes or atrophy noted. 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 Please send PA for oxycontin through her private insurance Order UDS through her private insurance Instructed to call [facility] to check on TENS unit order Keep active as possibe Continue tizanidine Continue phenergan Continue cymbalta from PCP Follow-up in 3 months in office for [facility] right shoulder pain with Dr Hogan The above plan and manage (more content not included)... [facility] 04-17-2023 Instructions Faiza Aragon APRN.CNS - 04/17/2023 2:20 PM EDT Continue Percocet 10/325 TID and Oxycontin 15 mg every 8 hours OARRS reviewed and consistent UDS reviewed and consistent Patient states her private insurance pays for percocet and oxycontin. Please send PA for oxycontin through her private insurance Order UDS through her private insurance Instructed to call [facility] to check on TENS unit order Keep active as possibe Continue tizanidine Continue phenergan Continue cymbalta from PCP Follow-up in 3 months in office for [facility] right shoulder pain with Dr Hogan documented in this encounter [facility] 04-17-2023 History of Presen t illness Narrative SUBJECTIVE: Clau Susan Rdzight presents to [facility] for a follow-up appointment for right shoulder pain [facility] Last seen by me on 01/16/23 with following plan of care: Continue Percocet 10/325 TID and Oxycontin 15 mg every 8 hours OARRS reviewed and consistent UDS reviewed and consistent C9 and schedule right suprascapular nerve block Submit C9 for TENS unit for right shoulder at least 3 times a day for about an hour Keep active as possibe Continue tizanidine Continue phenergan Continue cymbalta from PCP Follow-up in 3 months in office for [facility] right shoulder pain Last procedure 04/04/23 right shoulder injection Pain level:9-10/10 States she had 50% relief from injection Denies any ED visits or hospitalizations since last office visit Reports pain worse with activities of daily living Reports pain better with ice, medications Describes pain in right shoulder as constant sharp sensation that radiates arm to fingers. States she is having pain in left shoulder similar to right shoulder States has numbness and tingling in both hands Denies falls States she did not receive TENS unit REVIEW OF SYSTEMS: GENERAL: No weight loss, malaise or fevers. HEENT: Negative for frequent or significant headaches. RESPIRATORY: Negative for cough, wheezing or shortness of breath. CARDIOVASCULAR: Negative for chest pain, leg swelling or palpitations. GI: Negative for abdominal discomfort, blood in stools or black stools or change in bowel habits. Hx diverticulitis Gu:denies issues Past Medical History: PAST MEDICAL HISTORY Diagnosis Date Anxiety Arthritis Chicken pox Depressed mood Diabetes mellitus (HCC) 03/20/2023 Diverticulitis GERD (gastroesophageal reflux disease) Hyperlipidemia, acquired Hypertension Internal hemorrhoids Migraine Skin lesion of face Past Surgical History: PAST SURGICAL HISTORY Procedure Laterality Date SECTION HX x2 CHOLECYSTECTOMY VAGINAL HYSTERECTOMY UTERUS 250 GM/< XR CERVICAL FUSION OR Family History: FAMILY HISTORY Problem Relation Age of Onset Heart disease Father Coronary Artery Disease Father Hypertension Father Heart Attack Father Hypertension Mother Heart disease Mother Heart disease Brother Diabetes Brother Hypertension Brother Diabetes Sister Cancer Maternal Aunt Social History: Social History Tobacco Use Smoking status: Never Smokeless tobacco: Never Vaping Use Vaping Use: Never used Substance Use Topics Alcohol use: Not Currently Comment: Occasional Drug use: Not Currently OBJECTIVE: BP 169/72 Pulse 70 Wt 147 lb 9.6 oz (67.0kg) SpO2 96% PHYSICAL EXAMINATION: General appearance: Well appearing, in no acute distress, alert. Psych: Mood and affect appropriate. Weepy about not having oxycontin; then argumentative about pain medications being sent through [facility] instead of her private insurance Skin: Skin color, texture, turgor normal, no rashes or lesions. Pulm: no conversational shortness of breath or cough GI: Abdomen soft and non-tender. Musculoskeletal: Inspection of the right shoulder is largely unremarkable. There are no scars, masses or abnormalities noted. There is no effusion noted. Range of motion in the extremity/joint is mildly reduced. There is mild tenderness upon palpation of the anterior and posterior shoulder, AC joint, scapula and clavicle. Positive Ervin sign on right. Positive can test on right. Sensation is intact to the extremity. There is no hypo/hypersensitivity noted. Skin is warm and dry.There is peripheral edema noted to her melinda hands. Radial pulses present melinda. There are no skin changes or atrophy noted. 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 Please send PA for oxycontin through her private insurance Order UDS through her private insurance Instructed to call [facility] to check on TENS unit order Keep active as possibe Continue tizanidine Continue phenergan Continue cymbalta from PCP Follow-up in 3 months in office for [facility] right shoulder pain with Dr Hogan The above plan and management options were discussed at length with the patient. The patient is in agreement with the above and verbalized understanding. Faiza Aragon APRN.CNS April 17, 2023 documented in this encounter [facility] 04-12-2023 Miscellaneous Notes Items addressed in this encounter: Prior Authorization I called [facility] and spoke with Jarred to see why they denied oxycontin and he stated that the oxycontin er is not a covered drug,he stated that the patient would have to have tried and failed from tier 1 drug class such as morphine er, hydrocodone er,or tramadol er before anything else would get approved through [facility]. I scanned in denial letter from [facility] its in scanned documents. Please advise. Able to close encounter. Mel Cartwright MA April 12, 2023 8:13 AM 8:13 AM documented in this encounter [facility] 04-10-2023 Miscellaneous Notes Called patient to inform of Dr. Weiss message. Sleep Study scheduled May 06 @ 8:30pm at [facility] Patient states understanding and was given directions to facility. Wanda Jeronimo MA documented in this encounter [facility] 04-09-2023 Miscellaneous Notes Pa submitted thru [employer] to [facility] with [employer]-31 form and documentation for oxyCODONE ER (OXYCONTIN) 15 mg Fatmata Coates MA April 09, 2023 8:21 AM documented in this encounter [facility] 04-09-2023 Miscellaneous Notes Pt called and notified. Pavithra Miles, SARI I told her this has to be addressed in her office visit. This has to be approved with her regular insurance with appropriate documentation from an office visit. Pt called asking about a MRI order that was discussed yesterday at her procedure. No MRI ordered in chart. Pt stated that this MRI was for her left shoulder and arm. Please advise. Pavithra Miles RN April 05, 2023 10:24 AM documented in this encounter [facility] 04-08-2023 History of Presen t illness Narrative Images from the original note were not included. Nita Weiss II, MD [address], [place] [address] SUBJECTIVE Clau French is a 67 year old female who presents with New Patient. HPI Patient is in today to get established and to follow-up a number of chronic issues and to also discuss a few new issues as well. She is following up her chronic hypertension and other issues. She needs some refills on medication and she also needs new order for standing blood work. She is having a significant flareup of allergic rhinitis and we discussed treatment options and she did elect to go with a trial of a Kenalog injection. She also has symptoms consistent with obstructive sleep apnea but she has not had a sleep study so she would like to have 1. She states that she is having headaches that by description do appear to be migraine variant headaches and she would be willing to try treatment for that as well. Review of Systems Constitutional: Positive for fatigue. Negative for activity change, appetite change, chills, diaphoresis, fever and unexpected weight change. HENT: Positive for congestion, postnasal drip and sinus pressure. Negative for dental problem, drooling, ear discharge, ear pain, facial swelling, hearing loss, mouth sores, nosebleeds, rhinorrhea, sinus pain, sneezing, sore throat, tinnitus, trouble swallowing and voice change. Eyes: Negative for discharge, redness and visual disturbance. Respiratory: Negative for apnea, cough, choking, chest tightness, shortness of breath, wheezing and stridor. Cardiovascular: Negative for chest pain, palpitations and leg swelling. Gastrointestinal: Negative for abdominal distention, abdominal pain, anal bleeding, blood in stool, constipation, diarrhea, nausea and vomiting. Endocrine: Negative for cold intolerance, heat intolerance, polydipsia, polyphagia and polyuria. Genitourinary: Negative for decreased urine volume, difficulty urinating, dysuria, enuresis, frequency, hematuria and urgency. Musculoskeletal: Positive for arthralgias. Negative for back pain, gait problem, joint swelling, myalgias, neck pain and neck stiffness. Skin: Negative for color change, pallor, rash and wound. Allergic/Immunologic: Negative for environmental allergies. Neurological: Negative for dizziness, tremors, syncope, facial asymmetry, speech difficulty, weakness, light-headedness, numbness and headaches. Hematological: Negative for adenopathy. Does not bruise/bleed easily. Psychiatric/Behavioral: Positive for dysphoric mood and sleep disturbance. Negative for agitation, behavioral problems, confusion, decreased concentration, hallucinations, self-injury and suicidal ideas. The patient is nervous/anxious. The patient is not hyperactive. PAST MEDICAL HISTORY Diagnosis Date Anxiety Arthritis Chicken pox Depressed mood Diabetes mellitus (HCC) 03/20/2023 Diverticulitis GERD (gastroesophageal reflux disease) Hyperlipidemia, acquired Hypertension Internal hemorrhoids Migraine Skin lesion of face PAST SURGICAL HISTORY Procedure Laterality Date SECTION HX x2 CHOLECYSTECTOMY VAGINAL HYSTERECTOMY UTERUS 250 GM/< XR CERVICAL FUSION OR Social History Tobacco Use Smoking status: Never Smokeless tobacco: Never Vaping Use Vaping Use: Never used Substance Use Topics Alcohol use: Not Currently Comment: Occasional Drug use: Not Currently FAMILY HISTORY Problem Relation Age of Onset Heart disease Father Coronary Artery Disease Father Hypertension Father Heart Attack Father Hypertension Mother Heart disease Mother Heart disease Brother Diabetes Brother Hypertension Brother Diabetes Sister Cancer Maternal Aunt The ROS, medical, surgical, family, and social history were reviewed by Nita Weiss II, MD ALLERGIES Allergen Reactions Doxepin Other: See Comments Iodinated Contrast * Hives Morphine Hives Current Outpatient Medications Medication Sig keTORolac (TORADOL) 10 mg tablet Take 10 mg by mouth every 6 hours as needed. oxyCODONE ER (OXYCONTIN) 15 mg 12 hr tablet Take 1 tablet by mouth every 8 hours for 30 days. rizatriptan (MAXALT) 10 mg tablet TAKE 1 TABLET BY MOUTH at onset OF headache, may repeat dose in 2 (TWO) hours NEEDED oxyCODONE-acetaminophen (PERCOCET 10) 10-325 mg tablet Take 1 tablet by mouth three times daily as needed for pain for up to 30 days. promethazine (PHENERGAN) 25 mg tablet Take 1 tablet by mouth every 8 hours as needed for nausea/vomiting for up to 15 days. tiZANidine (ZANAFLEX) 4 mg tablet Take one pill by mouth 3 times a day as needed pantoprazole DR (PROTONIX) 40 mg tablet TAKE 1 TABLET BY MOUTH EVERY DAY albuterol HFA (PROVENTIL HFA, VENTOLIN HFA) 90 mcg/actuation inhaler Inhale 1 Puff as instructed every 6 hours as needed. hydrOXYzine HCl (ATARAX) 10 mg tablet Take 1 tablet by mouth three times daily as needed for anxiety. carvedilol (COREG) 12.5 mg tablet Take 1 tablet by mouth twice daily. atorvastatin (LIPITOR) 10 mg tablet Take 1 tablet by mouth once daily. DULoxetine (CYMBALTA) 30 mg capsule Take 3 capsules by mouth once daily. LORazepam (ATIVAN) 1 mg tablet Take 1 mg by mouth every 6 hours as needed. naloxone 4 mg/actuation nasal spray (NARCAN) Use 1 spray in one nostril as needed for overdose. May repeat every 2 to 3 min in alternating nostrils until medical assistance is available MULTIVITAMIN ORAL Take 1 tablet by mouth once daily. predniSONE (DELTASONE) 20 mg tablet 1 tablet three times a day for 3 days, then 2 times a day for 3 days, the one daily for 3 days. (Patient not taking: Reported on 04/08/2023) esomeprazole magnesium (NEXIUM) 40 mg packet Nexium Packet [address] for susp in packet (Patient not taking: Reported on 04/08/2023) sucralfate (CARAFATE) 1 gram tablet Take 1 g by mouth. (Patient not taking: Reported on 04/08/2023) Current Facility-Administered Medications Medication Dose Route Frequency galcanezumab-gnlm pnij 1 Each (EMGALITY) 1 Each SUBCUTANEOUS q 1 MONTH OBJECTIVE BP 130/60 (BP Site: Left Arm, BP Position: Sitting) Pulse 77 Temp 36.1 C (97 F) Resp 12 Ht 152.4 cm (5') Wt 65.3 kg (144 lb) SpO2 96% BMI 28.12 kg/m BMI 28.12 kg/(m^2) Physical Exam Vitals and nursing note reviewed. Constitutional: General: She is not in acute distress. Appearance: Normal appearance. She is not ill-appearing, toxic-appearing or diaphoretic. HENT: Head: Normocephalic and atraumatic. Right Ear: Tympanic membrane, ear canal and external ear normal. There is no impacted cerumen. Left Ear: Tympanic membrane, ear canal and external ear normal. There is no impacted cerumen. Nose: Nose normal. No congestion or rhinorrhea. Mouth/Throat: Mouth: Mucous membranes are moist. Pharynx: Oropharynx is clear. No oropharyngeal exudate or posterior oropharyngeal erythema. Eyes: General: No scleral icterus. Right eye: No discharge. Left eye: No discharge. Extraocular Movements: Extraocular movements intact. Conjunctiva/sclera: Conjunctivae normal. Pupils: Pupils are equal, round, and reactive to light. Neck: Vascular: No carotid bruit. Cardiovascular: Rate and Rhythm: Normal rate and regular rhythm. Pulses: Normal pulses. Heart sounds: Normal heart sounds. No murmur heard. No friction rub. No gallop. Pulmonary: Effort: Pulmonary effort is normal. No respiratory distress. Breath sounds: Normal breath sounds. No stridor. No wheezing, rhonchi or rales. Chest: Chest wall: No tenderness. Abdominal: General: Abdomen is flat. Bowel sounds are normal. There is no distension. Palpations: Abdomen is soft. There is no mass. Tenderness: There is no abdominal tenderness. There is no right CVA tenderness, left CVA tenderness, guarding or rebound. Hernia: No hernia is present. Musculoskeletal: General: No signs of injury. Cervical back: Normal range of motion and neck supple. No rigidity or tenderness. Comments: ROM and strength without significant changes from previous examinations and consistent with patient history Lymphadenopathy: Cervical: No cervical adenopathy. Skin: General: Skin is warm and dry. Capillary Refill: Capillary refill takes less than 2 seconds. Coloration: Skin is not jaundiced or pale. Findings: No erythema, lesion or rash. Neurological: General: No focal deficit present. Mental Status: She is alert and oriented to person, place, and time. Mental status is at baseline. Cranial Nerves: No cranial nerve deficit. Sensory: No sensory deficit. Motor: No weakness. Coordination: Coordination normal. Gait: Gait normal. Deep Tendon Reflexes: Reflexes normal. Psychiatric: Mood and Affect: Mood normal. Behavior: Behavior normal. Thought Content: Thought content normal. Judgment: Judgment normal. Labs: Hemoglobin (g/dL) Date Value 03/19/2023 14.4 Hematocrit (%) Date Value 03/19/2023 42.1 WBC (x10(3)) Date Value 03/19/2023 19.1 Platelet Count (X10(3)) Date Value 03/19/2023 204 Creatinine Date Value Ref Range Status 03/19/2023 1.03 (H) 0.50 - 0.90 mg/dL Final AST Date Value Ref Range Status 03/19/2023 26 5 - 32 U/L Final ALT Date Value Ref Range Status 03/19/2023 32 5 - 33 U/L Final Bilirubin, Total (mg/dL) Date Value 03/19/2023 0.3 WBC (x10(3)) Date Value 03/19/2023 19.1 (H) RBC (x10(6)) Date Value 03/19/2023 4.81 %DIG,%DBS Plan ASSESSMENT/PLAN: 1. Hypertension, essential - ICD9: 401.9, ICD10: I10 (primary diagnosis) - Controlled - Continue current medications - Recommend home blood pressure monitoring, to bring results to next visit - Encouraged sodium restriction, DASH or Mediterranean diet - Recommend regular aerobic exercise - Discussed need for and benefit of weight loss. BMI 28.12 kg/(m^2) - Follow up in 4 weeks for hypertension visit - CBC - BASIC METABOLIC PNL - HEPATIC FUNCTION PNL - LIPID PANEL BASIC - TSH BLD 2. Type 2 diabetes mellitus with hyperglycemia, without long-term current use of insulin (HCC) - ICD9: 250.00, 790.29, ICD10: E11.65 - Control undetermined, due for labs - Continue current medications - Blood glucose monitoring on a once daily and twice daily schedule - Counseled on healthy diet and regular exercise - Discussed need for and benefit of weight loss. BMI 28.12 kg/(m^2) - Discussed diabetic education issues of diabetes complications and monitoring required, hypoglycemic/hyperglycemic symptoms, and medication-specific side effects and monitoring - Follow up in 3 months, sooner should any other issues arise. - CBC - BASIC METABOLIC PNL - HEPATIC FUNCTION PNL - LIPID PANEL BASIC - TSH BLD 3. Hyperlipidemia, mixed - ICD9: 272.2, ICD10: E78.2 - Control undetermined, due for labs - Continue current medications - Counseled on healthy diet and regular exercise - Discussed need for and benefit of weight loss. BMI 28.12 kg/(m^2) - Follow up in 3 months, sooner should any other issues arise. - CBC - BASIC METABOLIC PNL - HEPATIC FUNCTION PNL - LIPID PANEL BASIC - TSH BLD 4. Gastroesophageal reflux disease without esophagitis - ICD9: 530.81, ICD10: K21.9 Clinically stable. Continue same medication and treatment. Follow up in 3 to 6 months or sooner if needed. - CBC - BASIC METABOLIC PNL - HEPATIC FUNCTION PNL - LIPID PANEL BASIC - TSH BLD 5. Migraine with aura and without status migrainosus, not intractable - ICD9: 346.00, ICD10: G43.109 Continue same medication and trial of Imitrex 1 every 24 hours as needed for headache. Call after she is try the medication with an update we will give her further recommendations at that time. - SUMATRIPTAN 100 MG TABLET 6. Chronic insomnia - ICD9: 780.52, ICD10: F51.04 Clinically stable. Continue same medication and treatment. Follow up in 3 to 6 months or sooner if needed. - CBC - BASIC METABOLIC PNL - HEPATIC FUNCTION PNL - LIPID PANEL BASIC - TSH BLD 7. Seasonal allergic rhinitis, unspecified trigger - ICD9: 477.9, ICD10: J30.2 Kenalog 80 mg IM x1. Follow-up as needed for this issue. - TRIAMCINOLONE ACETONIDE 40 MG/ML SUSPENSION FOR INJECTION 8. CEDRICK (obstructive sleep apnea) - ICD9: 327.23, ICD10: G47.33 We will need to check a sleep study and call with results and recommendations when it is available. - POLYSOMNOGRAM (PSG) 9. Snoring - ICD9: 786.09, ICD10: R06.83 See #8 - POLYSOMNOGRAM (PSG) 10. Excessive daytime sleepiness - ICD9: 780.54, ICD10: G47.19 See #8 - POLYSOMNOGRAM (PSG) 11. Anxiety with depression - ICD9: 300.4, ICD10: F41.8 Patient reports that she is doing fairly well. Plans on continuing the same medication and following up as per her previous routine. 12. I attached health maintenance recommendations to the patient's discharge instructions. She can get her immunizations at the local pharmacy with a prescription if needed, and can call us, if it is decided to do the testing, for appropriate orders. PDMP website checked and validated. All prescriptions have been APPROPRIATELY filled. No suspicious activity was identified. 04/21/2023 by MD Nita Sepulveda II, II, MD Follow up: No follow-ups on file. Nita Weiss II, M.D. documented in this encounter [facility] 04-08-2023 Instructions Nita Weiss II, MD - 04/08/2023 4:27 PM EDT Please consider having the following Health Maintenance testing completed: DILATED RETINAL EXAM SHINGRIX VACCINE(1 of 2) PNEUMOCOCCAL: 65+(2 - PCV) BONE DENSITY COLORECTAL CANCER SCREENING MAMMOGRAM If your testing is not done at a [facility] facility please provide this office with the results of your testing. documented in this encounter [facility] 04-07-2023 Miscellaneous Notes The following approved medication requests have been transmitted electronically. Requested Prescriptions Signed Prescriptions Disp Refills oxyCODONE ER (OXYCONTIN) 15 mg 12 hr tablet 90 tablet 0 Sig: Take 1 tablet by mouth every 8 hours for 30 days. Authorizing Provider: FAIZA ARAGON APRN.MACHINE BUNCH MAKER Pt called because she only received a partial fill on her OxyContin not percocet. Pt needing RF on OxyContin. RX attached. Pavithra Miles RN April 05, 2023 10:28 AM documented in this encounter [facility] 04-05-2023 Miscellaneous Notes Summary: APPOINTMENT REMINDER SPOKE DIRECTLY WITH PATIENT TO REMIND OF APPOINTMENT ON 04/08/23 @ 4:00 PM Hemalatha Hernandez documented in this encounter [facility] 03-26-2023 Miscellaneous Notes Noted. Pt called and noted that she only received a partial fill ( #40 of her percocet). Pt informed to call the office 7 days before running out and we would process a sooner RF. Pt verbalized understanding. Pavithra Miles RN March 26, 2023 3:44 PM documented in this encounter [facility] 03-20-2023 Miscellaneous Notes The following approved medication requests have been transmitted electronically. Requested Prescriptions Signed Prescriptions Disp Refills oxyCODONE ER (OXYCONTIN) 15 mg 12 hr tablet 90 tablet 0 Sig: Take 1 tablet by mouth every 8 hours for 30 days. Do not start before March 25, 2023. Authorizing Provider: FAIZA ARAGON APRN.MACHINE BUNCH MAKER Pt called back in today stating that [facility] cannot get the Oxycodone Patient phones requesting refills as follows: Requested Prescriptions Pending Prescriptions Disp Refills oxyCODONE ER (OXYCONTIN) 15 mg 12 hr tablet 90 tablet 0 Sig: Take 1 tablet by mouth every 8 hours for 30 days. Do not start before March 25, 2023. Last UDS: No results found for: SUMM @FLOW([id number])@ No results found for: SUMM Summary Report (Summary) Date Value Ref Range Status 02/22/2022 FINAL Final Comment: ==== TOXASSURE COMP DRUG ANALYSIS,UR ==== Test Result Flag Units Drug Present Oxycodone 3913 ng/mg creat Oxymorphone 982 ng/mg creat Noroxycodone 1874 ng/mg creat Noroxymorphone 215 ng/mg creat Sources of oxycodone are scheduled prescription medications. Oxymorphone, noroxycodone, and noroxymorphone are expected metabolites of oxycodone. Oxymorphone is also available as a scheduled prescription medication. Tizanidine PRESENT Zolpidem PRESENT Zolpidem Acid PRESENT Zolpidem acid is an expected metabolite of zolpidem. Duloxetine PRESENT Acetaminophen PRESENT Promethazine PRESENT ==== Test Result Flag Units Ref Range Creatinine 105 mg/dL >=20 ==== Declared Medications: Medication list was not provided. ==== For clinical consultation, please call . ==== Please review and advise. Cynthia Patrick RN15mg until 03/27. She is asking that the script be sent to [facility] in [place]. Please advise. Cynthia Patrick RN March 20, 2023 3:02 PM documented in this encounter [facility] 03-20-2023 Miscellaneous Notes The patient called back and I relayed the provider's message to her. She expressed understanding and had no further questions. Patient wants to think about the Metformin and will call back with her decision. I also updated the phone number, it was off by 1 digit. Char Ellison 234 number went both times I tried to call and the mobile number has a vm box that has not been set up. Will keep trying and will also send [employer] message. Hemalatha Martinez MA ----- Message from Lazaro Mendez APRN.MACHINE TRACER sent at 03/20/2023 8:12 AM EDT ----- Please inform patient her hemoglobin A1C is 7.3. she should be on medication for the diabetes. I would like her to start taking metformin 500 mg daily. Let me know if she is agreeable and I will send it into the pharmacy. Thank You. Lazaro Mendez APRN.MACHINE TRACER documented in this encounter [facility] 03-19-2023 Miscellaneous Notes Attempted to call pt multiple times and calls keep ringing one time and then disconnecting. Will keep trying. ----- Message from Lazaro Mendez APRN.MACHINE TRACER sent at 03/19/2023 3:40 PM EDT ----- Please inform patient the cardiac enzymes are normal. Her white count is elevated and there was glucose in her urine. I added on a hemoglobin A1c to her labs since the last one in September was 6.9. I see that she is not on anything for the diabetes. If they do not run the A1c with the current labs done today, we need her to get it completed to see what medication she will need to control the diabetes. If we do not call her by with the result, then she needs to call the office and let me know so we can send another order to [facility]. Thank You. Lazaro Mendez APRN.MACHINE TRACER documented in this encounter [facility] 03-19-2023 Note HNO ID: [id number] Author: Lazaro Menedz APRN.MACHINE TRACER Service: ? Author Type: Nurse Practitioner Type: Progress Notes Filed: 03/19/2023 12:57 PM Note Text: Clau French is a 67 year old female here today acutely because of having: Cough, Chest Congestion, Back Pain, Chest Pain, and Fatigue Patient has symptoms of fever, nasal congestion, runny nose, cough, and chest congestion. Symptoms on going for 7 days. Chest tightness on left side of chest twice since last night. Symptoms lasting 10-15 minutes. Patient has tried no OTC medication. Exposed to anyone with similar illness, boyfriend. Patient is not a smoker. Denies SOB, chest pain, dizziness, nausea, vomiting, diarrhea. UTI Symptoms patient states that the symptoms began 3 day(s). Any prescription or OTC treatments since onset of symptoms?: No If Yes what medications: None Current Symptoms: Dysuria: Yes Increase in frequency of urination: Yes Urgency: Yes Sense of incomplete void: Yes Fevers: Yes - How high: 99.1 Chills: No Sweats: No Vomiting: No Diarrhea: No Abdominal pain: No: Blood visible in urine: No New onset of back pain: No Review of Systems Constitutional: Negative for chills, fatigue and fever. HENT: Positive for congestion, postnasal drip and rhinorrhea. Negative for ear pain, sinus pain and sore throat. Respiratory: Positive for cough. Negative for chest tightness, shortness of breath and wheezing. Cardiovascular: Positive for chest pain (left side). Negative for palpitations and leg swelling. Gastrointestinal: Negative for abdominal pain, diarrhea, nausea and vomiting. Genitourinary: Positive for dysuria, frequency and urgency. Negative for difficulty urinating, flank pain and hematuria. Musculoskeletal: Negative for back pain. Skin: Negative for color change and rash. Neurological: Negative for dizziness and headaches. BP 168/75 (BP Site: Right Arm, BP Position: Sitting, BP Cuff Size: Regular Adult) Pulse 99 Temp 37.3 ?C (99.1 ?F) (Oral) Resp 18 Ht 152.4 cm (5') Wt 66.2 kg (146 lb) SpO2 97% BMI 28.51 kg/m? BMI 28.51 kg/(m2) ALLERGIES Allergen Reactions Doxepin Other: See Comments Iodinated Contrast * Hives Morphine Hives Physical Exam Constitutional: Appearance: Normal appearance. HENT: Right Ear: Tympanic membrane and external ear normal. Left Ear: Tympanic membrane and external ear normal. Ears: Comments: Erythremic ear canals Nose: Congestion and rhinorrhea present. Right Sinus: No maxillary sinus tenderness or frontal sinus tenderness. Left Sinus: No maxillary sinus tenderness or frontal sinus tenderness. Mouth/Throat: Mouth: Mucous membranes are moist. Pharynx: No posterior oropharyngeal erythema. Cardiovascular: Rate and Rhythm: Normal rate and regular rhythm. Heart sounds: Normal heart sounds. No murmur heard. Pulmonary: Effort: Pulmonary effort is normal. No respiratory distress. Breath sounds: Normal breath sounds. No wheezing. Abdominal: General: Bowel sounds are normal. Palpations: Abdomen is soft. Tenderness: There is no right CVA tenderness or left CVA tenderness. Skin: General: Skin is warm and dry. Neurological: Mental Status: She is alert and oriented to person, place, and time. ASSESSMENT/PLAN: 1. URI, acute - ICD9: 465.9, ICD10: J06.9 (primary diagnosis) - Symptomatic treatment with prn analgesia - Supportive care with fluids and rest - AMOXICILLIN 875 MG-POTASSIUM CLAVULANATE 125 MG TABLET 2. Recurrent UTI (urinary tract infection) - ICD9: 599.0, ICD10: N39.0 acute - UA positive for mando esterase - Send urine for culture - Patient education for prevention given - AMOXICILLIN 875 MG-POTASSIUM CLAVULANATE 125 MG TABLET - URINE CULTURE 3. Chest pressure - ICD9: 786.59, ICD10: R07.89 Chest pain of unclear etiology - Electrocardiogram: An ECG today showed sinus tachycardia - Lab evaluation CMP, CBC, Troponin, and CK,CK-MB - ECG B/O W INTERP (MED OFFICE) - CBC + DIFF - COMP METABOLIC PANEL - CK TOTAL AND CK-MB - TROPONIN T (HIGH SENSITIVE) 4. UTI symptoms - ICD9: 788.99, ICD10: R39.9 - UA DIP B/O Lazaro Mendez CNP Follow Up: Return if symptoms worsen or fail to improve. Prescription instructions reviewed with patient as applicable. Patient advised if symptoms do not improve or if symptoms worsen sooner, to contact their primary care physician. Potential red flag symptoms discussed with the patient. Reviewed appropriate action plan to take if red flag symptoms occur. Patient agreeable to treatment plan. Voice recognition software utilized. Minor grammatical and/or spelling errors may exist. Portions of this note have been entered by ancillary staff. I have reviewed and when necessary edited, so that they are an adequate record of my encounter with this patient. [facility] 03-19-2023 History of Presen t illness Narrative Clau French is a 67 year old female here today acutely because of having: Cough, Chest Congestion, Back Pain, Chest Pain, and Fatigue Patient has symptoms of fever, nasal congestion, runny nose, cough, and chest congestion. Symptoms on going for 7 days. Chest tightness on left side of chest twice since last night. Symptoms lasting 10-15 minutes. Patient has tried no OTC medication. Exposed to anyone with similar illness, boyfriend. Patient is not a smoker. Denies SOB, chest pain, dizziness, nausea, vomiting, diarrhea. UTI Symptoms patient states that the symptoms began 3 day(s). Any prescription or OTC treatments since onset of symptoms?: No If Yes what medications: None Current Symptoms: Dysuria: Yes Increase in frequency of urination: Yes Urgency: Yes Sense of incomplete void: Yes Fevers: Yes - How high: 99.1 Chills: No Sweats: No Vomiting: No Diarrhea: No Abdominal pain: No: Blood visible in urine: No New onset of back pain: No Review of Systems Constitutional: Negative for chills, fatigue and fever. HENT: Positive for congestion, postnasal drip and rhinorrhea. Negative for ear pain, sinus pain and sore throat. Respiratory: Positive for cough. Negative for chest tightness, shortness of breath and wheezing. Cardiovascular: Positive for chest pain (left side). Negative for palpitations and leg swelling. Gastrointestinal: Negative for abdominal pain, diarrhea, nausea and vomiting. Genitourinary: Positive for dysuria, frequency and urgency. Negative for difficulty urinating, flank pain and hematuria. Musculoskeletal: Negative for back pain. Skin: Negative for color change and rash. Neurological: Negative for dizziness and headaches. BP 168/75 (BP Site: Right Arm, BP Position: Sitting, BP Cuff Size: Regular Adult) Pulse 99 Temp 37.3 C (99.1 F) (Oral) Resp 18 Ht 152.4 cm (5') Wt 66.2 kg (146 lb) SpO2 97% BMI 28.51 kg/m BMI 28.51 kg/(m^2) ALLERGIES Allergen Reactions Doxepin Other: See Comments Iodinated Contrast * Hives Morphine Hives Physical Exam Constitutional: Appearance: Normal appearance. HENT: Right Ear: Tympanic membrane and external ear normal. Left Ear: Tympanic membrane and external ear normal. Ears: Comments: Erythremic ear canals Nose: Congestion and rhinorrhea present. Right Sinus: No maxillary sinus tenderness or frontal sinus tenderness. Left Sinus: No maxillary sinus tenderness or frontal sinus tenderness. Mouth/Throat: Mouth: Mucous membranes are moist. Pharynx: No posterior oropharyngeal erythema. Cardiovascular: Rate and Rhythm: Normal rate and regular rhythm. Heart sounds: Normal heart sounds. No murmur heard. Pulmonary: Effort: Pulmonary effort is normal. No respiratory distress. Breath sounds: Normal breath sounds. No wheezing. Abdominal: General: Bowel sounds are normal. Palpations: Abdomen is soft. Tenderness: There is no right CVA tenderness or left CVA tenderness. Skin: General: Skin is warm and dry. Neurological: Mental Status: She is alert and oriented to person, place, and time. ASSESSMENT/PLAN: 1. URI, acute - ICD9: 465.9, ICD10: J06.9 (primary diagnosis) - Symptomatic treatment with prn analgesia - Supportive care with fluids and rest - AMOXICILLIN 875 MG-POTASSIUM CLAVULANATE 125 MG TABLET 2. Recurrent UTI (urinary tract infection) - ICD9: 599.0, ICD10: N39.0 acute - UA positive for mando esterase - Send urine for culture - Patient education for prevention given - AMOXICILLIN 875 MG-POTASSIUM CLAVULANATE 125 MG TABLET - URINE CULTURE 3. Chest pressure - ICD9: 786.59, ICD10: R07.89 Chest pain of unclear etiology - Electrocardiogram: An ECG today showed sinus tachycardia - Lab evaluation CMP, CBC, Troponin, and CK,CK-MB - ECG B/O W INTERP (MED OFFICE) - CBC + DIFF - COMP METABOLIC PANEL - CK TOTAL AND CK-MB - TROPONIN T (HIGH SENSITIVE) 4. UTI symptoms - ICD9: 788.99, ICD10: R39.9 - UA DIP B/O Lazaro Mendez CNP Follow Up: Return if symptoms worsen or fail to improve. Prescription instructions reviewed with patient as applicable. Patient advised if symptoms do not improve or if symptoms worsen sooner, to contact their primary care physician. Potential red flag symptoms discussed with the patient. Reviewed appropriate action plan to take if red flag symptoms occur. Patient agreeable to treatment plan. Voice recognition software utilized. Minor grammatical and/or spelling errors may exist. Portions of this note have been entered by ancillary staff. I have reviewed and when necessary edited, so that they are an adequate record of my encounter with this patient. documented in this encounter [facility] 03-19-2023 Miscellaneous Notes Addended by: FAIZA ARAGON on: 03/19/2023 11:03 AM Modules accepted: Orders The following approved medication requests have been transmitted electronically. Requested Prescriptions Signed Prescriptions Disp Refills oxyCODONE ER (OXYCONTIN) 15 mg 12 hr tablet 90 tablet 0 Sig: Take 1 tablet by mouth every 8 hours for 30 days. Do not start before March 25, 2023. Authorizing Provider: FAIZA ARAGON oxyCODONE-acetaminophen (PERCOCET 10) 10-325 mg tablet 90 tablet 0 Sig: Take 1 tablet by mouth three times daily as needed for pain for up to 30 days. Authorizing Provider: FAIZA ARAGON APRN.MACHINE BUNCH MAKER Addended by: IVONNE LEACH on: 03/19/2023 11:00 AM Modules accepted: Orders [facility] called the office to clarify Oxycodone prescription request. States patient called them asking if they had Percocet in stock because she would have her doctor's office send the prescription to them since her regular pharmacy is out of stock. Oxycontin 15mg ER prescription canceled at pharmacy. Please send the following prescription to [facility]. Patient phones requesting refills as follows: Requested Prescriptions Pending Prescriptions Disp Refills oxyCODONE-acetaminophen (PERCOCET 10) 10-325 mg tablet 90 tablet 0 Sig: Take 1 tablet by mouth three times daily as needed for pain for up to 30 days. Signed Prescriptions Disp Refills oxyCODONE ER (OXYCONTIN) 15 mg 12 hr tablet 90 tablet 0 Sig: Take 1 tablet by mouth every 8 hours for 30 days. Do not start before March 25, 2023. Authorizing Provider: FAIZA ARAGON Last UDS: No results found for: SUMM @FLOW([id number])@ No results found for: SUMM Summary Report (Summary) Date Value Ref Range Status 02/22/2022 FINAL Final Comment: ==== TOXASSURE COMP DRUG ANALYSIS,UR ==== Test Result Flag Units Drug Present Oxycodone 3913 ng/mg creat Oxymorphone 982 ng/mg creat Noroxycodone 1874 ng/mg creat Noroxymorphone 215 ng/mg creat Sources of oxycodone are scheduled prescription medications. Oxymorphone, noroxycodone, and noroxymorphone are expected metabolites of oxycodone. Oxymorphone is also available as a scheduled prescription medication. Tizanidine PRESENT Zolpidem PRESENT Zolpidem Acid PRESENT Zolpidem acid is an expected metabolite of zolpidem. Duloxetine PRESENT Acetaminophen PRESENT Promethazine PRESENT ==== Test Result Flag Units Ref Range Creatinine 105 mg/dL >=20 ==== Declared Medications: Medication list was not provided. ==== For clinical consultation, please call . ==== Please review and advise. Ivonne Leach RN The following approved medication requests have been transmitted electronically. Requested Prescriptions Signed Prescriptions Disp Refills oxyCODONE ER (OXYCONTIN) 15 mg 12 hr tablet 90 tablet 0 Sig: Take 1 tablet by mouth every 8 hours for 30 days. Do not start before March 25, 2023. Authorizing Provider: FAIZA ARAGON APRN.MACHINE BUNCH MAKER Pt called in today stating that [facility] does not have the Oxycodone in stock. It needs sent to [facility]. Please advise. Cynthia Patrick RN March 19, 2023 9:41 AM Patient phones requesting refills as follows: Requested Prescriptions Pending Prescriptions Disp Refills oxyCODONE ER (OXYCONTIN) 15 mg 12 hr tablet 90 tablet 0 Sig: Take 1 tablet by mouth every 8 hours for 30 days. Do not start before March 25, 2023. Last UDS: No results found for: SUMM @FLOW([id number])@ No results found for: SUMM Summary Report (Summary) Date Value Ref Range Status 02/22/2022 FINAL Final Comment: ==== TOXASSURE COMP DRUG ANALYSIS,UR ==== Test Result Flag Units Drug Present Oxycodone 3913 ng/mg creat Oxymorphone 982 ng/mg creat Noroxycodone 1874 ng/mg creat Noroxymorphone 215 ng/mg creat Sources of oxycodone are scheduled prescription medications. Oxymorphone, noroxycodone, and noroxymorphone are expected metabolites of oxycodone. Oxymorphone is also available as a scheduled prescription medication. Tizanidine PRESENT Zolpidem PRESENT Zolpidem Acid PRESENT Zolpidem acid is an expected metabolite of zolpidem. Duloxetine PRESENT Acetaminophen PRESENT Promethazine PRESENT ==== Test Result Flag Units Ref Range Creatinine 105 mg/dL >=20 ==== Declared Medications: Medication list was not provided. ==== For clinical consultation, please call . ==== Please review and advise. Cynthia Patrick RN documented in this encounter [facility] 03-19-2023 Miscellaneous Notes Pa for oxycodone ir was sent through the hub. documented in this encounter [facility] 03-14-2023 Miscellaneous Notes Case built Clau Kendall called to schedule her procedure. Please build a case for the right suprascapular nerve block so she can be added to the schedule April 04 at 1:15. Her [facility] approval is valid through 05/10/2023. Melania Sandoval March 14, 2023 4:05 PM documented in this encounter [facility] 03-14-2023 Miscellaneous Notes The following approved medication requests have been transmitted electronically. Requested Prescriptions Signed Prescriptions Disp Refills oxyCODONE-acetaminophen (PERCOCET 10) 10-325 mg tablet 90 tablet 0 Sig: Take 1 tablet by mouth three times daily as needed for pain for up to 30 days. Do not start before March 19, 2023. Authorizing Provider: FAIZA ARAGON oxyCODONE ER (OXYCONTIN) 15 mg 12 hr tablet 90 tablet 0 Sig: Take 1 tablet by mouth every 8 hours for 30 days. Do not start before March 25, 2023. Authorizing Provider: FAIZA ARAGON promethazine (PHENERGAN) 25 mg tablet 45 tablet 0 Sig: Take 1 tablet by mouth every 8 hours as needed for nausea/vomiting for up to 15 days. Authorizing Provider: FAIZA ARAGON tiZANidine (ZANAFLEX) 4 mg tablet 90 tablet 1 Sig: Take one pill by mouth 3 times a day as needed Authorizing Provider: FAIZA ARAGON APRN.MACHINE BUNCH MAKER Patient phones requesting refills as follows: Requested Prescriptions Pending Prescriptions Disp Refills oxyCODONE-acetaminophen (PERCOCET 10) 10-325 mg tablet 90 tablet 0 Sig: Take 1 tablet by mouth three times daily as needed for pain for up to 30 days. oxyCODONE ER (OXYCONTIN) 15 mg 12 hr tablet 90 tablet 0 Sig: Take 1 tablet by mouth every 8 hours for 30 days. promethazine (PHENERGAN) 25 mg tablet 45 tablet 0 Sig: Take 1 tablet by mouth every 8 hours as needed for nausea/vomiting for up to 15 days. tiZANidine (ZANAFLEX) 4 mg tablet 90 tablet 1 Sig: Take one pill by mouth 3 times a day as needed Last UDS: No results found for: SUMM @FLOW([id number])@ No results found for: SUMM Summary Report (Summary) Date Value Ref Range Status 02/22/2022 FINAL Final Comment: ==== TOXASSURE COMP DRUG ANALYSIS,UR ==== Test Result Flag Units Drug Present Oxycodone 3913 ng/mg creat Oxymorphone 982 ng/mg creat Noroxycodone 1874 ng/mg creat Noroxymorphone 215 ng/mg creat Sources of oxycodone are scheduled prescription medications. Oxymorphone, noroxycodone, and noroxymorphone are expected metabolites of oxycodone. Oxymorphone is also available as a scheduled prescription medication. Tizanidine PRESENT Zolpidem PRESENT Zolpidem Acid PRESENT Zolpidem acid is an expected metabolite of zolpidem. Duloxetine PRESENT Acetaminophen PRESENT Promethazine PRESENT ==== Test Result Flag Units Ref Range Creatinine 105 mg/dL >=20 ==== Declared Medications: Medication list was not provided. ==== For clinical consultation, please call . ==== Please review and advise. Stephanie Garrett RN documented in this encounter [facility] 02-22-2023 Note HNO ID: [id number] Author: Lazaro Mendez APRN.MACHINE TRACER Service: ? Author Type: Nurse Practitioner Type: Progress Notes Filed: 02/22/2023 10:48 AM Note Text: Clau French is a 67 year old female here today acutely because of having: rash and Arm Pain Rash: Patient states she had blood work drawn 2 weeks ago from both acute illness and after the bandage was removed she notes she started getting a rash this area. States the rash is raised and itchy. Denies any drainage or redness to the skin. Currently is using hydrocortisone cream with little relief. Tendinitis: Patient states she was working in the yard a week ago and felt a pop in the left arm just below the deltoid. Since then the arms been tender to touch and difficulty twisting the arm outward or lifting above the shoulder. Reports that whenever she pushes on the area is painful. Patient has not been taking any anti-inflammatories [id number] for the symptoms but she does take Percocet and OxyContin. Review of Systems Respiratory: Negative for cough, chest tightness and shortness of breath. Cardiovascular: Negative for chest pain and palpitations. Musculoskeletal: Left upper arm pain Skin: Positive for rash (See HPI). BP 103/57 (BP Site: Right Arm, BP Position: Sitting, BP Cuff Size: Regular Adult) Pulse 78 Temp 37.1 ?C (98.8 ?F) (Oral) Resp 18 Ht 152.4 cm (5') Wt 70.3 kg (155 lb) SpO2 96% BMI 30.27 kg/m? BMI 30.27 kg/(m2) ALLERGIES Allergen Reactions Doxepin Other: See Comments Iodinated Contrast * Hives Morphine Hives Physical Exam Constitutional: Appearance: Normal appearance. Cardiovascular: Rate and Rhythm: Normal rate and regular rhythm. Heart sounds: Normal heart sounds. No murmur heard. Pulmonary: Effort: Pulmonary effort is normal. No respiratory distress. Breath sounds: Normal breath sounds. No wheezing. Musculoskeletal: General: Tenderness (pain with palpation over the upper left deltoid) present. Skin: General: Skin is warm and dry. Findings: Rash (red raised rash in bilateral AC.) present. Neurological: Mental Status: She is alert and oriented to person, place, and time. ASSESSMENT/PLAN: 1. Contact dermatitis, unspecified contact dermatitis type, unspecified trigger - ICD9: 692.9, ICD10: L25.9 (primary diagnosis) - Oral Steriod tx -Prednisone taper - discussed skin care of rash - follow up if symptoms persist or worsen. - PREDNISONE 20 MG TABLET 2. Tendonitis - ICD9: 726.90, ICD10: M77.9 - PREDNISONE 20 MG TABLET Lazaro Mendez CNP Follow Up: Return if symptoms worsen or fail to improve. Prescription instructions reviewed with patient as applicable. Patient advised if symptoms do not improve or if symptoms worsen sooner, to contact their primary care physician. Potential red flag symptoms discussed with the patient. Reviewed appropriate action plan to take if red flag symptoms occur. Patient agreeable to treatment plan. Voice recognition software utilized. Minor grammatical and/or spelling errors may exist. Portions of this note have been entered by ancillary staff. I have reviewed and when necessary edited, so that they are an adequate record of my encounter with this patient. [facility] 02-11-2023 Miscellaneous Notes I ordered it to [facility]. I do not know who sends it after that. Thanks. Please send the RX to where she will get the devise. Melania February 11, 2023 11:21 AM Order placed. cO Kendall received approval for a 30 day TENS Unit Trial for Clau. Melania February 11, 2023 10:51 AM documented in this encounter [facility] 02-05-2023 Miscellaneous Notes No C-9 was submitted for the TENS supplies or nerve block. I faxed both today. Melania February 05, 2023 1:50 PM documented in this encounter [facility] 01-16-2023 Note HNO ID: [id number] Author: Faiza Aragon APRN.MACHINE BUNCH MAKER Service: ? Author Type: Clinical Nurse Specialist Type: Progress Notes Filed: 01/16/2023 4:42 PM Note Text: SUBJECTIVE: Clau French presents to [facility] for a follow-up appointment for right shoulder pain BWC Continue Percocet 10/325 TID and Oxycontin 15 mg every 8 hours OARRS reviewed and consistent. UDS on 11/20/21 inconsistent. Addressed at previous office visit Sign Pain contract Submit C9 and order UDS C9 and schedule right suprascapular nerve block Submit C9 for TENS unit for right shoulder at least 3 times a day for about an hour Keep active as possibe Follow-up in 2-3 months in office for [facility] right shoulder pain Last procedure 10/10/22 right supracapular steroid block Pain level:7/ States had about 60% relief from last injection Denies any ED visits or hospitalizations since last office visit Reports pain worse with activities of daily living, weather changes Reports pain better with ice, medications Describes pain in right shoulder as constant sharp sensation that radiates to fingers. States has numbness and tingling in both hands and fingers worse on right Denies falls States TENS did not get replaced. Stop working REVIEW OF SYSTEMS: GENERAL: No weight loss, malaise or fevers. HEENT: Negative for frequent or significant headaches. RESPIRATORY: Negative for cough, wheezing or shortness of breath. CARDIOVASCULAR: Negative for chest pain, leg swelling or palpitations. GI: Negative for abdominal discomfort, blood in stools or black stools or change in bowel habits. Hx diverticulitis : denies issues Past Medical History: PAST MEDICAL HISTORY Diagnosis Date Anxiety Arthritis Chicken pox Depressed mood Diverticulitis GERD (gastroesophageal reflux disease) Hyperlipidemia, acquired Hypertension Internal hemorrhoids Migraine Skin lesion of face Past Surgical History: PAST SURGICAL HISTORY Procedure Laterality Date SECTION HX x2 CHOLECYSTECTOMY VAGINAL HYSTERECTOMY UTERUS 250 GM/< XR CERVICAL FUSION OR Family History: FAMILY HISTORY Problem Relation Age of Onset Heart disease Father Coronary Artery Disease Father Hypertension Father Heart Attack Father Hypertension Mother Heart disease Mother Heart disease Brother Diabetes Brother Hypertension Brother Diabetes Sister Cancer Maternal Aunt Social History: Social History Tobacco Use Smoking status: Never Smokeless tobacco: Never Vaping Use Vaping Use: Never used Substance Use Topics Alcohol use: Yes Comment: Occasional Drug use: Not Currently OBJECTIVE: BP 134/57 Pulse 84 Resp 19 Ht 5' 0 (1.52m) Wt 140 lb (63.5kg) SpO2 96% BMI 27.34 kg/(m2). PHYSICAL EXAMINATION: General appearance: Well appearing, in no acute distress, alert. Psych: Mood and affect appropriate. Skin: Skin color, texture, turgor normal, no rashes or lesions. Pulm: no conversational shortness of breath or cough GI: Abdomen soft and non-tender. Musculoskeletal: Inspection of the right shoulder is largely unremarkable. There are no scars, masses or abnormalities noted. There is no effusion noted. Range of motion in the extremity/joint is mildly reduced. There is mild tenderness upon palpation of the anterior and posterior shoulder, AC joint, scapula and clavicle. Positive Ervin sign on right. Positive can test on right. Sensation is intact to the extremity. There is no hypo/hypersensitivity noted. Skin is warm and dry.There is peripheral edema noted to her melinda hands. Radial pulses present melinda. There are no skin changes or atrophy noted. ASSESSMENT: DOI: 10/15/2000 Claim#: [id number] Allowed Dx: S46.911A, S53.401A, S53.491A, M75.51, S53.491A, M75.101, M77.11, M12.531, M75.21, S53.431A, F45.42, F32.9 MCO: Medical Administrators (M75.51) Bursitis of right shoulder (primary encounter diagnosis) (M75.21) Bicipital tendinitis, right shoulder (G89.4) Chronic pain syndrome (Z79.899) High risk medication use (S46.911S) Strain of right shoulder, sequela PLAN: Continue Percocet 10/325 TID and Oxycontin 15 mg every 8 hours OARRS reviewed and consistent UDS reviewed and consistent C9 and schedule right suprascapular nerve block Submit C9 for TENS unit for right shoulder at least 3 times a day for about an hour Keep active as possibe Continue tizanidine Continue phenergan Continue cymbalta from PCP Follow-up in 3 months in office for [facility] right shoulder pain The above plan and management options were discussed at length with the patient. The patient is in agreement with the above and verbalized understanding. Faiza Aragon APRN.JEANNIE January 16, 2023 [facility] 01-16-2023 Instructions Faiza Aragon APRN.MACHINE BUNCH MAKER - 01/16/2023 4:27 PM EDT Continue Percocet 10/325 TID and Oxycontin 15 mg every 8 hours OARRS reviewed and consistent UDS reviewed and consistent C9 and schedule right suprascapular nerve block Submit C9 for TENS unit for right shoulder at least 3 times a day for about an hour Keep active as possibe Continue tizanidine Continue phenergan Continue cymbalta from PCP Follow-up in 3 months in office for [facility] right shoulder pain documented in this encounter [facility] 01-16-2023 History of Presen t illness Narrative SUBJECTIVE: Clau French presents to [facility] for a follow-up appointment for right shoulder pain BWC Continue Percocet 10/325 TID and Oxycontin 15 mg every 8 hours OARRS reviewed and consistent. UDS on 11/20/21 inconsistent. Addressed at previous office visit Sign Pain contract Submit C9 and order UDS C9 and schedule right suprascapular nerve block Submit C9 for TENS unit for right shoulder at least 3 times a day for about an hour Keep active as possibe Follow-up in 2-3 months in office for C right shoulder pain Last procedure 10/10/22 right supracapular steroid block Pain level:7/10 States had about 60% relief from last injection Denies any ED visits or hospitalizations since last office visit Reports pain worse with activities of daily living, weather changes Reports pain better with ice, medications Describes pain in right shoulder as constant sharp sensation that radiates to fingers. States has numbness and tingling in both hands and fingers worse on right Denies falls States TENS did not get replaced. Stop working REVIEW OF SYSTEMS: GENERAL: No weight loss, malaise or fevers. HEENT: Negative for frequent or significant headaches. RESPIRATORY: Negative for cough, wheezing or shortness of breath. CARDIOVASCULAR: Negative for chest pain, leg swelling or palpitations. GI: Negative for abdominal discomfort, blood in stools or black stools or change in bowel habits. Hx diverticulitis : denies issues Past Medical History: PAST MEDICAL HISTORY Diagnosis Date Anxiety Arthritis Chicken pox Depressed mood Diverticulitis GERD (gastroesophageal reflux disease) Hyperlipidemia, acquired Hypertension Internal hemorrhoids Migraine Skin lesion of face Past Surgical History: PAST SURGICAL HISTORY Procedure Laterality Date SECTION HX x2 CHOLECYSTECTOMY VAGINAL HYSTERECTOMY UTERUS 250 GM/< XR CERVICAL FUSION OR Family History: FAMILY HISTORY Problem Relation Age of Onset Heart disease Father Coronary Artery Disease Father Hypertension Father Heart Attack Father Hypertension Mother Heart disease Mother Heart disease Brother Diabetes Brother Hypertension Brother Diabetes Sister Cancer Maternal Aunt Social History: Social History Tobacco Use Smoking status: Never Smokeless tobacco: Never Vaping Use Vaping Use: Never used Substance Use Topics Alcohol use: Yes Comment: Occasional Drug use: Not Currently OBJECTIVE: BP 134/57 Pulse 84 Resp 19 Ht 5' 0 (1.52m) Wt 140 lb (63.5kg) SpO2 96% BMI 27.34 kg/(m^2). PHYSICAL EXAMINATION: General appearance: Well appearing, in no acute distress, alert. Psych: Mood and affect appropriate. Skin: Skin color, texture, turgor normal, no rashes or lesions. Pulm: no conversational shortness of breath or cough GI: Abdomen soft and non-tender. Musculoskeletal: Inspection of the right shoulder is largely unremarkable. There are no scars, masses or abnormalities noted. There is no effusion noted. Range of motion in the extremity/joint is mildly reduced. There is mild tenderness upon palpation of the anterior and posterior shoulder, AC joint, scapula and clavicle. Positive Ervin sign on right. Positive can test on right. Sensation is intact to the extremity. There is no hypo/hypersensitivity noted. Skin is warm and dry.There is peripheral edema noted to her melinda hands. Radial pulses present melinda. There are no skin changes or atrophy noted. ASSESSMENT: DOI: 10/15/2000 Claim#: [id number] Allowed Dx: S46.911A, S53.401A, S53.491A, M75.51, S53.491A, M75.101, M77.11, M12.531, M75.21, S53.431A, F45.42, F32.9 MCO: Medical Administrators (M75.51) Bursitis of right shoulder (primary encounter diagnosis) (M75.21) Bicipital tendinitis, right shoulder (G89.4) Chronic pain syndrome (Z79.899) High risk medication use (S46.911S) Strain of right shoulder, sequela PLAN: Continue Percocet 10/325 TID and Oxycontin 15 mg every 8 hours OARRS reviewed and consistent UDS reviewed and consistent C9 and schedule right suprascapular nerve block Submit C9 for TENS unit for right shoulder at least 3 times a day for about an hour Keep active as possibe Continue tizanidine Continue phenergan Continue cymbalta from PCP Follow-up in 3 months in office for [facility] right shoulder pain The above plan and management options were discussed at length with the patient. The patient is in agreement with the above and verbalized understanding. Faiza Aragon APRN.CNS January 16, 2023 documented in this encounter [facility] 01-15-2023 Miscellaneous Notes Pharmacy faxes requesting refill: Requested Prescriptions Pending Prescriptions Disp Refills rizatriptan (MAXALT) 10 mg tablet [Pharmacy Med Name: rizatriptan 10 mg tablet] 12 tablet 1 Sig: TAKE 1 TABLET BY MOUTH at onset OF headache, may repeat dose in 2 (TWO) hours NEEDED Date of last visit:08/07/2022 Phone #: [phone] (home) [phone] (work) [phone] (cell) The patients preferred pharmacy has been captured for this encounter? yes documented in this encounter [facility] 01-11-2023 Miscellaneous Notes Patient calls requesting refill: Requested Prescriptions Pending Prescriptions Disp Refills albuterol HFA (PROVENTIL HFA, VENTOLIN HFA) 90 mcg/actuation inhaler 18 g 5 Sig: Inhale 1 Puff as instructed every 6 hours as needed. hydrOXYzine HCl (ATARAX) 10 mg tablet 90 tablet 1 Sig: Take 1 tablet by mouth three times daily as needed for anxiety. Date of last visit:01/09/2023 Phone #: [phone] (home) [phone] (work) [phone] (cell) The patients preferred pharmacy has been captured for this encounter? yes documented in this encounter [facility] 01-09-2023 Miscellaneous Notes Patient calls today. Reason for Call: Patient states that she would like to know if [facility] would take her as a patient. Patient's son Andre sees [facility] and really liked her and she wants to switch.Please advise, Thanks [phone] (home) [phone] (work) [phone] (cell) Patient last appointment: 01/03/2023 Rachel Pittman documented in this encounter [facility] 12-17-2022 Note HNO ID: [id number] Author: Lazaro Mendez APRN.MACHINE TRACER Service: ? Author Type: Nurse Practitioner Type: Progress Notes Filed: 12/17/2022 2:53 PM Note Text: Clau French is a 67 year old female here today acutely because of having: Headache, Sinus pressure, and Nasal Congestion URI: Patient has symptoms of nasal congestion, runny nose, face pain, cough, headache, and post nasal drainage. Symptoms on going for 8 days. Patient has tried several OTC cold medication with little improvement. Exposed to anyone with similar illness, no. Patient is not a smoker. Denies fever, SOB, chest pain, dizziness, nausea, vomiting, diarrhea. Review of Systems Constitutional: Negative for chills, fatigue and fever. HENT: Positive for congestion, postnasal drip, rhinorrhea and sinus pain. Negative for ear pain and sore throat. Respiratory: Positive for cough. Negative for chest tightness, shortness of breath and wheezing. Cardiovascular: Negative for chest pain, palpitations and leg swelling. Gastrointestinal: Negative for abdominal pain, diarrhea, nausea and vomiting. Skin: Negative for color change and rash. Neurological: Positive for headaches. Negative for dizziness. BP 147/75 Pulse 71 Temp 37.3 ?C (99.1 ?F) (Oral) Wt 68.9 kg (152 lb) SpO2 97% BMI 29.69 kg/m? BMI 29.69 kg/(m2) ALLERGIES Allergen Reactions Doxepin Other: See Comments Iodinated Contrast * Hives Morphine Hives Physical Exam Constitutional: Appearance: Normal appearance. HENT: Right Ear: Tympanic membrane and external ear normal. Left Ear: Tympanic membrane and external ear normal. Ears: Comments: Erythremic ear canals Nose: Congestion and rhinorrhea present. Right Sinus: Maxillary sinus tenderness and frontal sinus tenderness present. Left Sinus: Maxillary sinus tenderness and frontal sinus tenderness present. Mouth/Throat: Mouth: Mucous membranes are moist. Pharynx: No posterior oropharyngeal erythema. Comments: Yellow post nasal drainage Cardiovascular: Rate and Rhythm: Normal rate and regular rhythm. Heart sounds: Normal heart sounds. No murmur heard. Pulmonary: Effort: Pulmonary effort is normal. No respiratory distress. Breath sounds: Normal breath sounds. No wheezing. Skin: General: Skin is warm and dry. Neurological: Mental Status: She is alert and oriented to person, place, and time. ASSESSMENT/PLAN: 1. Bacterial sinusitis - ICD9: 473.9, 041.9, ICD10: J32.9, B96.89 - Will begin treatment with as per antibiotic as written, see orders - Supportive care with plenty of fluids, rest, and analgesia prn. - AMOXICILLIN 875 MG-POTASSIUM CLAVULANATE 125 MG TABLET Lazaro Mendez, MACHINE TRACER Follow Up: Return if symptoms worsen or fail to improve. Prescription instructions reviewed with patient as applicable. Patient advised if symptoms do not improve or if symptoms worsen sooner, to contact their primary care physician. Potential red flag symptoms discussed with the patient. Reviewed appropriate action plan to take if red flag symptoms occur. Patient agreeable to treatment plan. Voice recognition software utilized. Minor grammatical and/or spelling errors may exist. Portions of this note have been entered by ancillary staff. I have reviewed and when necessary edited, so that they are an adequate record of my encounter with this patient. [facility] 12-16-2022 Miscellaneous Notes The following approved medication requests have been transmitted electronically. Requested Prescriptions Signed Prescriptions Disp Refills oxyCODONE ER (OXYCONTIN) 15 mg 12 hr tablet 90 tablet 0 Sig: Take 1 tablet by mouth every 8 hours for 30 days. Do not start before December 25, 2022. Authorizing Provider: AFIZA ARAGON oxyCODONE-acetaminophen (PERCOCET 10) 10-325 mg tablet 90 tablet 0 Sig: Take 1 tablet by mouth three times daily as needed for pain for up to 30 days. Do not start before December 19, 2022. Authorizing Provider: FAIZA ARAGON, ARACELI.MACHINE BUNCH MAKER Patient phones requesting refills as follows: Requested Prescriptions Pending Prescriptions Disp Refills oxyCODONE ER (OXYCONTIN) 15 mg 12 hr tablet 90 tablet 0 Sig: Take 1 tablet by mouth every 8 hours for 30 days. oxyCODONE-acetaminophen (PERCOCET 10) 10-325 mg tablet 90 tablet 0 Sig: Take 1 tablet by mouth three times daily as needed for pain for up to 30 days. Last UDS: No results found for: SUMM @FLOW([id number])@ No results found for: SUMM Summary Report (Summary) Date Value Ref Range Status 02/22/2022 FINAL Final Comment: ==== TOXASSURE COMP DRUG ANALYSIS,UR ==== Test Result Flag Units Drug Present Oxycodone 3913 ng/mg creat Oxymorphone 982 ng/mg creat Noroxycodone 1874 ng/mg creat Noroxymorphone 215 ng/mg creat Sources of oxycodone are scheduled prescription medications. Oxymorphone, noroxycodone, and noroxymorphone are expected metabolites of oxycodone. Oxymorphone is also available as a scheduled prescription medication. Tizanidine PRESENT Zolpidem PRESENT Zolpidem Acid PRESENT Zolpidem acid is an expected metabolite of zolpidem. Duloxetine PRESENT Acetaminophen PRESENT Promethazine PRESENT ==== Test Result Flag Units Ref Range Creatinine 105 mg/dL >=20 ==== Declared Medications: Medication list was not provided. ==== For clinical consultation, please call . ==== Please review and advise. Stephanie Garrett RN documented in this encounter [facility] 11-22-2022 Miscellaneous Notes left message to inform pt that 11/26/21 appt was cancelled due to nurse practitioner being out of the office. pt to call and lu documented in this encounter [facility] 11-19-2022 Miscellaneous Notes Pharmacy faxes requesting refill: Requested Prescriptions Pending Prescriptions Disp Refills carvedilol (COREG) 12.5 mg tablet 60 tablet 4 Sig: Take 1 tablet by mouth twice daily. Date of last visit:08/07/2022 Phone #: [phone] (home) [phone] (work) [phone] (cell) The patients preferred pharmacy has been captured for this encounter? yes documented in this encounter [facility] 11-16-2022 Miscellaneous Notes Pharmacy faxes requesting refill: Requested Prescriptions Pending Prescriptions Disp Refills rizatriptan (MAXALT) 10 mg tablet [Pharmacy Med Name: rizatriptan 10 mg tablet] 12 tablet 1 Sig: TAKE 1 TABLET BY MOUTH at onset OF headache, may repeat dose in 2 (TWO) hours if needed Date of last visit:08/07/22 Phone #: [phone] (home) [phone] (work) [phone] (cell) The patients preferred pharmacy has been captured for this encounter? yes documented in this encounter [facility] 11-08-2022 Miscellaneous Notes The following approved medication requests have been transmitted electronically. Requested Prescriptions Signed Prescriptions Disp Refills oxyCODONE-acetaminophen (PERCOCET 10) 10-325 mg tablet 90 tablet 0 Sig: Take 1 tablet by mouth three times daily as needed for pain for up to 30 days. Do not start before November 19, 2022. Authorizing Provider: FAIZA ARAGON oxyCODONE ER (OXYCONTIN) 15 mg 12 hr tablet 90 tablet 0 Sig: Take 1 tablet by mouth every 8 hours for 30 days. Do not start before November 19, 2022. Authorizing Provider: FAIZA ARAGON promethazine (PHENERGAN) 25 mg tablet 45 tablet 0 Sig: Take 1 tablet by mouth every 8 hours as needed for nausea/vomiting for up to 15 days. Authorizing Provider: FAIZA ARAGON APRN.MACHINE BUNCH MAKER Pt call for refills, scripts attached, please advise promethazine, it was not listed in last ov but has been filled since, please review and advise Stephanie Garrett RN November 08, 2022 2:01 PM documented in this encounter [facility] 11-02-2022 Miscellaneous Notes I think this was sent to the wrong provider Pushpa Houston PA-C Patient calls requesting refill: Requested Prescriptions Pending Prescriptions Disp Refills atorvastatin (LIPITOR) 10 mg tablet 30 tablet 11 Sig: Take 1 tablet by mouth once daily. Date of last visit:10/23/2022 Phone #: [phone] (home) [phone] (work) [phone] (cell) The patients preferred pharmacy has been captured for this encounter? yes documented in this encounter [facility] 10-24-2022 Miscellaneous Notes Patient called and advised to call her pain Mgt. Office to get Auth for medication. This is not done by us. It needs to be done by pain management Christos Joyce This was ordered by her pain management doctor, Faiza Aragon. They will need to the auth on this. Christos Joyce Patient calls today. Reason for Call: [facility] needs a prior authorization for oxyCODONE-acetaminophen (PERCOCET 10) 10-325 mg tablet. Thank youj. [phone] (home) [phone] (work) [phone] (cell) Patient last appointment: 10/15/2022 Gale Hamlin documented in this encounter [facility] 10-23-2022 Miscellaneous Notes I left a message to fill out a SOAPP form to send with the MojivaEsther CooleyMelania October 23, 2022 1:41 PM documented in this encounter [facility] 10-15-2022 Miscellaneous Notes A1c is 6.9 Patient calls today. Reason for Call: Requesting the results of her recent A1c. Please advise Thank you! [phone] (home) [phone] (work) [phone] (cell) Patient last appointment: 10/12/2022 Char Ellison documented in this encounter [facility] 10-12-2022 Miscellaneous Notes Patient was notified of results via Mychart documented in this encounter [facility] 10-12-2022 Nurse Note Venipuncture performed to left antecubital. Number of tubes collected: 1 lavender. documented in this encounter [facility] 10-11-2022 Note HNO ID: [id number] Author: Ladi Vieira MA Service: ? Author Type: Support Worker Type: Progress Notes Filed: 10/11/2022 3:24 PM Note Text: Referring Provider: No ref. provider found Date: October 11, 2022 Chief Complaint: Headaches HISTORY OF PRESENT ILLNESS: Clau French is a 67 year old female who presents for headaches. She is right handed female that lives with her son and significant other. Patient is retired. 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 She has torn rotator cuffs bilaterally and numerousl back problems that require her to be under the care of pain management. Patient states she started to have headaches at the age of 51. She state that she currently has a headache. On average in a month she will have 12 headaches that are on the right side of her head and behind her eye. When she had a headache it can last up to 48 hours. On occasion her eye can get blood shot when she has a headache but denies being nauseated, light sensitivity and vomiting. In an effort to resovle her headaches she will use warm compress and goto a quiet dark room. I, Ladi Vieira MA, transcribing for Milagro Viramontes MD. ALLERGIES Allergen Reactions Doxepin Other: See Comments Iodinated Contrast * Hives Morphine Hives PAST MEDICAL HISTORY: PAST MEDICAL HISTORY Diagnosis Date Anxiety Arthritis Chicken pox Depressed mood Diverticulitis GERD (gastroesophageal reflux disease) Hyperlipidemia, acquired Hypertension Internal hemorrhoids Migraine Skin lesion of face PAST SURGICAL HISTORY Procedure Laterality Date SECTION HX x2 CHOLECYSTECTOMY VAGINAL HYSTERECTOMY UTERUS 250 GM/< XR CERVICAL FUSION OR FAMILY HISTORY Problem Relation Age of Onset Heart disease Father Coronary Artery Disease Father Hypertension Father Heart Attack Father Hypertension Mother Heart disease Mother Heart disease Brother Diabetes Brother Hypertension Brother Diabetes Sister Cancer Maternal Aunt SOCIAL HISTORY: Tobacco Use: Never Alcohol Use: Yes (Occasional) Drug Use: Not Currently Employer And Job Title: None on file Years Of Education Completed: Not specified Marital Status: MEDICATIONS: Current Outpatient Medications Medication Sig tiZANidine (ZANAFLEX) 4 mg tablet Take one pill by mouth 3 times a day as needed promethazine (PHENERGAN) 25 mg tablet Take 1 tablet by mouth every 6 hours as needed for nausea/vomiting. [START ON 10/20/2022] oxyCODONE-acetaminophen (PERCOCET 10) 10-325 mg tablet Take 1 tablet by mouth three times daily as needed for pain for up to 30 days. Do not start before October 20, 2022. [START ON 10/22/2022] oxyCODONE ER (OXYCONTIN) 15 mg 12 hr tablet Take 1 tablet by mouth every 8 hours for 30 days. Do not start before October 22, 2022. rizatriptan (MAXALT) 10 mg tablet TAKE 1 TABLET BY MOUTH at onset OF headache, may repeat dose in 2 (TWO) hours if needed DULoxetine (CYMBALTA) 30 mg capsule Take 3 capsules by mouth once daily. LORazepam (ATIVAN) 1 mg tablet Take 1 mg by mouth every 6 hours as needed. hydrOXYzine HCl (ATARAX) 10 mg tablet Take 1 tablet by mouth three times daily as needed for anxiety. carvedilol (COREG) 12.5 mg tablet TAKE 1 TABLET BY MOUTH TWICE DAILY naloxone 4 mg/actuation nasal spray (NARCAN) Use 1 spray in one nostril as needed for overdose. May repeat every 2 to 3 min in alternating nostrils until medical assistance is available esomeprazole magnesium (NEXIUM) 40 mg packet Nexium Packet [address] for susp in packet sucralfate (CARAFATE) 1 gram tablet Take 1 g by mouth. pantoprazole DR (PROTONIX) 40 mg tablet TAKE 1 TABLET BY MOUTH ONCE DAILY albuterol HFA (PROVENTIL HFA, VENTOLIN HFA) 90 mcg/actuation inhaler Inhale 1 Puff as instructed every 6 hours as needed. atorvastatin (LIPITOR) 10 mg tablet Take 1 tablet by mouth once daily. MULTIVITAMIN ORAL Take 1 tablet by mouth once daily. No current facility-administered medications for this visit. I have personally reviewed the patients past medical history including social, family, surgical, diagnostics, and medications./AB Review of Systems Constitutional: Negative for chills, fever and unexpected weight change. HENT: Negative for congestion, facial swelling, trouble swallowing and voice change. Eyes: Negative for visual disturbance. Respiratory: Negative for shortness of breath. Cardiovascular: Negative for chest pain. Gastrointestinal: Negative for diarrhea, nausea and vomiting. Musculoskeletal: Negative for gait problem and myalgias. Allergic/Immunologic: Negative. Negative for immunocompromised state. Neurological: Positive for headaches. Negative for dizziness, syncope and light-headedness. Psychiatric/Behavioral: Negative. Negative for hallucinations and self-injury. Vitals: BP 160/71 Pulse 76 Ht 152.4 cm (5') Wt 6 (more content not included)... 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 1.) Patient will start on Emgality injection to be done once monthly in an effort to help reduce headaches. 2.) Due to your narcotics usage it will decrease the effectiveness of other medications which has impacted the effectiveness of your Maxalt 2.) Due to your history of GI ulcers other medication is not indicated at this time. 3.) Reviewed CT scans, Lipid, CMP, and CBC 4.) Follow up in 3 months documented in this encounter [facility] 10-11-2022 History of Presen t illness Narrative Referring Provider: No ref. provider found Date: October 11, 2022 Chief Complaint: Headaches HISTORY OF PRESENT ILLNESS: Clau French is a 67 year old female who presents for headaches. She is right handed female that lives with her son and significant other. Patient is retired. 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 She has torn rotator cuffs bilaterally and numerousl back problems that require her to be under the care of pain management. Patient states she started to have headaches at the age of 51. She state that she currently has a headache. On average in a month she will have 12 headaches that are on the right side of her head and behind her eye. When she had a headache it can last up to 48 hours. On occasion her eye can get blood shot when she has a headache but denies being nauseated, light sensitivity and vomiting. In an effort to resovle her headaches she will use warm compress and goto a quiet dark room. I, Ladi Vieira MA, transcribing for Milagro Viramontes MD. ALLERGIES Allergen Reactions Doxepin Other: See Comments Iodinated Contrast * Hives Morphine Hives PAST MEDICAL HISTORY: PAST MEDICAL HISTORY Diagnosis Date Anxiety Arthritis Chicken pox Depressed mood Diverticulitis GERD (gastroesophageal reflux disease) Hyperlipidemia, acquired Hypertension Internal hemorrhoids Migraine Skin lesion of face PAST SURGICAL HISTORY Procedure Laterality Date SECTION HX x2 CHOLECYSTECTOMY VAGINAL HYSTERECTOMY UTERUS 250 GM/< XR CERVICAL FUSION OR FAMILY HISTORY Problem Relation Age of Onset Heart disease Father Coronary Artery Disease Father Hypertension Father Heart Attack Father Hypertension Mother Heart disease Mother Heart disease Brother Diabetes Brother Hypertension Brother Diabetes Sister Cancer Maternal Aunt SOCIAL HISTORY: Tobacco Use: Never Alcohol Use: Yes (Occasional) Drug Use: Not Currently Employer And Job Title: None on file Years Of Education Completed: Not specified Marital Status: MEDICATIONS: Current Outpatient Medications Medication Sig tiZANidine (ZANAFLEX) 4 mg tablet Take one pill by mouth 3 times a day as needed promethazine (PHENERGAN) 25 mg tablet Take 1 tablet by mouth every 6 hours as needed for nausea/vomiting. [START ON 10/20/2022] oxyCODONE-acetaminophen (PERCOCET 10) 10-325 mg tablet Take 1 tablet by mouth three times daily as needed for pain for up to 30 days. Do not start before October 20, 2022. [START ON 10/22/2022] oxyCODONE ER (OXYCONTIN) 15 mg 12 hr tablet Take 1 tablet by mouth every 8 hours for 30 days. Do not start before October 22, 2022. rizatriptan (MAXALT) 10 mg tablet TAKE 1 TABLET BY MOUTH at onset OF headache, may repeat dose in 2 (TWO) hours if needed DULoxetine (CYMBALTA) 30 mg capsule Take 3 capsules by mouth once daily. LORazepam (ATIVAN) 1 mg tablet Take 1 mg by mouth every 6 hours as needed. hydrOXYzine HCl (ATARAX) 10 mg tablet Take 1 tablet by mouth three times daily as needed for anxiety. carvedilol (COREG) 12.5 mg tablet TAKE 1 TABLET BY MOUTH TWICE DAILY naloxone 4 mg/actuation nasal spray (NARCAN) Use 1 spray in one nostril as needed for overdose. May repeat every 2 to 3 min in alternating nostrils until medical assistance is available esomeprazole magnesium (NEXIUM) 40 mg packet Nexium Packet [address] for susp in packet sucralfate (CARAFATE) 1 gram tablet Take 1 g [address] mouth. pantoprazole [address] (PROTONIX) 40 mg tablet TAKE 1 TABLET BY MOUTH ONCE DAILY albuterol HFA (PROVENTIL HFA, VENTOLIN HFA) 90 mcg/actuation inhaler Inhale 1 Puff as instructed every 6 hours as needed. atorvastatin (LIPITOR) 10 mg tablet Take 1 tablet by mouth once daily. MULTIVITAMIN ORAL Take 1 tablet by mouth once daily. No current facility-administered medications for this visit. I have personally reviewed the patients past medical history including social, family, surgical, diagnostics, and medications./AB Review of Systems Constitutional: Negative for chills, fever and unexpected weight change. HENT: Negative for congestion, facial swelling, trouble swallowing and voice change. Eyes: Negative for visual disturbance. Respiratory: Negative for shortness of breath. Cardiovascular: Negative for chest pain. Gastrointestinal: Negative for diarrhea, nausea and vomiting. Musculoskeletal: Negative for gait problem and myalgias. Allergic/Immunologic: Negative. Negative for immunocompromised state. Neurological: Positive for headaches. Negative for dizziness, syncope and light-headedness. Psychiatric/Behavioral: Negative. Negative for hallucinations and self-injury. Vitals: BP 160/71 Pulse 76 Ht 152.4 cm (5') Wt 66.2 kg (146 lb) BMI 28.51 kg/m PHYSICAL EXAM:: The physical exam findings are as follows: General General Appearance - Well groomed, scattered tattoos Orientation: Oriented to time, oriented to place, and oriented to person. Higher Cortical Function: Awake and alert. Language functions are intact. Patient names well and repeats well, spontaneous speech as well as comprehension is normal and fund of knowledge is intact for the patient level of education. Attention span and concentration are normal and as expected for patient's age. Neurologic CRANIAL NERVES: ll - Makes and sustains eye contact. Visual olea are full to confrontation testing. lll, lV, Vl - Pupils are 2 -3 mm in size and reactive. External ocular movements are full and there is no nystagmus. V - Facial sensation to light touch and pin prick, normal. Vll - No facial asymmetry Vlll - Normal hearing. lX - Palatal movements, normal. Xl - Good and equal shoulder shrugs. Xll - Tongue protrusion, midline. Motor Exam Bulk/Size: Normal Tone: Normal Abnormal movements: None Sensory: Right Left Light Touch Not checked Not checked Pin Prick Not checked Not checked Vibration Not checked Not checked Temperature Not checked Not checked Distal/Proximal exam normal Sensory level: None Reflex Right Left Biceps 1+ 1+ Triceps 1+ 1+ Wrist 1+ 1+ Knee 1+ 1+ Ankle Not checked Not checked Plantar Not checked Not checked Cerebellar Exam: Normal Gait and Stance: Not checked Tandem walk: Not checked Romberg's: Not checked The following documents and testing were reviewed and discussed with the patient. 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 1.) Patient will start on Emgality injection to be done once monthly in an effort to help reduce headaches. 2.) Due to your narcotics usage it will decrease the effectiveness of other medications which has impacted the effectiveness of your Maxalt 2.) Due to your history of GI ulcers other medication is not indicated at this time. 3.) Reviewed CT scans, Lipid, CMP, and CBC 4.) Follow up in 3 months The old record was reviewed and new history from hospital was obtained and recorded. I have discussed the recommended treatment, alternative treatments and other treatment options in detail. I have discussed the risks, benefits and side effect of the recommended treatment in detail as well. I have attempted to answer all their questions to their satisfaction and understanding of the explanation has been voiced. With approval we will pursue the recommended treatment. I, Milagro Viramontes, have reviewed and agree with the information in the medical record transcribed by Ladi Vieira MA. Milagro Viramontes MD documented in this encounter [facility] 10-10-2022 Surgical operatio n note Patient stated she took 2 tabs of benadryl from home prior to procedure for her contrast iodine allergy. Summary: Right suprascapular nerve block under [facility] PROCEDURE: Right shoulder suprascapular nerve block corticosteroid injection. DATE OF SERVICE: 10/10/2022 PREPROCEDURE DIAGNOSIS: S46.911A S53.401A M75.51, M75.101 S53.491A,S53.491A M77.11 M12.531 M75.21 S53.431A POSTPROCEDURE DIAGNOSIS: 1.Same ANESTHESIA: Local with benadryl. COMPLICATIONS:None CONSENT: Risks of the procedure including bleeding, infection, nerve damage, seizure, abscess formation, hematoma formation, headache, failure of the pain to improve and potential worsening of the pain, were explained in full to the patient who verbalized understanding and wishes to proceed with the injection at this time. Written informed consent was thereby obtained. BRIEF HISTORY: See Chart DESCRIPTION OF PROCEDURE: After written informed consent was obtained as above, the patient was placed on the examination room table in the ___supine position. The ___right shoulder suprascapular notch was identified via fluoroscopic guidance in the anterior/posterior and oblique view. The skin was sterilely prepped with _Chloroprep swabs . A sterile drape was applied. An injectate consisting of __4 ml 0.25% Marcaine mixed with Kenalog 40 mg was drawn up into a syringe. The skin and subcutaneous tissues were infiltrated with 3 ml 1% Lidocaine using a 25 gauge 1 inch needle. A __22 gauge 3 1/2 spinal needle was advanced toward the ____right____ medial aspect of the suprascapular notch. Negative Synovial fluid was aspirated. After negative aspiration to heme, a total of __1 ml____ of Isovue M-300 contrast was injected. The right suprascapular notch was delineated with the aid of fluoroscopic guidance. After negative aspiration to heme, 4 ml 0.25% Marcaine mixed with Kenalog 40 mg was slowly injected. There were no complications noted upon injection. The needle tip was removed intact. The patient remained neurovascularly intact both pre- and postprocedure. The area was wiped clean and a Band-Aid was applied as appropriate. The patient was transferred to the recovery area where their VSS remained stable. After a period of observation, the patient was discharged home in good condition. documented in this encounter [facility] 10-08-2022 Miscellaneous Notes Patient called back and scheduled labs at the office. Char Ellison Lmom for patient to call back into the office, phone number provided. Please see where she would like to have labs done. Thank you. There is an order for an a1c in her chart from 08/26/22. She can use this order to have it checked. Will need faxed if she is going to [facility] or she can be scheduled here for it. She does not need to be fasting. Patient calls today. Reason for Call: Patient called today and wanted to schedule appointment to get her A1C checked but do not see an order .She said at her last OV it was mentioned to have this checked again because it was borderline. Please advise. Thank you. [phone] (home) [phone] (work) [phone] (cell) Patient last appointment: 08/30/2022 Gale Hamlin documented in this encounter [facility] 10-08-2022 Miscellaneous Notes The following approved medication requests have been transmitted electronically. Requested Prescriptions Signed Prescriptions Disp Refills tiZANidine (ZANAFLEX) 4 mg tablet 90 tablet 1 Sig: Take one pill by mouth 3 times a day as needed Authorizing Provider: FAIZA ARAGON promethazine (PHENERGAN) 25 mg tablet 60 tablet 0 Sig: Take 1 tablet by mouth every 6 hours as needed for nausea/vomiting. Authorizing Provider: FAIZA ARAGON oxyCODONE-acetaminophen (PERCOCET 10) 10-325 mg tablet 90 tablet 0 Sig: Take 1 tablet by mouth three times daily as needed for pain for up to 30 days. Do not start before October 20, 2022. Authorizing Provider: FAIZA ARAGON oxyCODONE ER (OXYCONTIN) 15 mg 12 hr tablet 90 tablet 0 Sig: Take 1 tablet by mouth every 8 hours for 30 days. Do not start before October 22, 2022. Authorizing Provider: FAIZA ARAGON APRN.MACHINE BUNCH MAKER Pt requesting refill as follows Requested Prescriptions Pending Prescriptions Disp Refills tiZANidine (ZANAFLEX) 4 mg tablet 90 tablet 1 Sig: Take one pill by mouth 3 times a day as needed promethazine (PHENERGAN) 25 mg tablet 60 tablet 0 Sig: Take 1 tablet by mouth every 6 hours as needed for nausea/vomiting. oxyCODONE-acetaminophen (PERCOCET 10) 10-325 mg tablet 90 tablet 0 Sig: Take 1 tablet by mouth three times daily as needed for pain for up to 30 days. oxyCODONE ER (OXYCONTIN) 15 mg 12 hr tablet 90 tablet 0 Sig: Take 1 tablet by mouth every 8 hours for 30 days. Please review and advise. Cynthia Patrick RN documented in this encounter [facility] 09-19-2022 Miscellaneous Notes The following approved medication requests have been transmitted electronically. Requested Prescriptions Signed Prescriptions Disp Refills tiZANidine (ZANAFLEX) 4 mg tablet 90 tablet 1 Sig: Take one pill by mouth 3 times a day as needed Authorizing Provider: FAIZA ARAGON APRN.MACHINE BUNCH MAKER Zanaflex Pt requesting refill as follows Requested Prescriptions Pending Prescriptions Disp Refills tiZANidine (ZANAFLEX) 4 mg tablet 90 tablet 1 Sig: Take one pill by mouth 3 times a day as needed Please review and advise. Cynthia Patrick RN documented in this encounter [facility] 09-18-2022 Miscellaneous Notes The following approved medication requests have been transmitted electronically. Requested Prescriptions Signed Prescriptions Disp Refills promethazine (PHENERGAN) 25 mg tablet 60 tablet 0 Sig: Take 1 tablet by mouth every 6 hours as needed for nausea/vomiting. Authorizing Provider: FAIZA ARAGON APRN.MACHINE BUNCH MAKER Patient phones requesting refills as follows: Requested Prescriptions Pending Prescriptions Disp Refills promethazine (PHENERGAN) 25 mg tablet 60 tablet 0 Sig: Take 1 tablet by mouth every 6 hours as needed for nausea/vomiting. Please review and advise. Ivonne Leach RN documented in this encounter [facility] 08-30-2022 Miscellaneous Notes Voicemail left for patient with return number to return call. MC message sent Order in for sleep study Patient calls to see if Gala can order a sleep study for her to be done at [facility]. She has a hard time sleeping. Please advise documented in this encounter [facility] 08-27-2022 Note HNO ID: [id number] Author: Faiza Aragon APRN.MACHINE BUNCH MAKER Service: ? Author Type: Clinical Nurse Specialist Type: Progress Notes Filed: 08/27/2022 3:49 PM Note Text: Patient was last seen by me on 05/23/22 for right shoulder pain. [facility] Last procedure: 03/01/2022 right suprascapular nerve block Plan of care: Continue Percocet 10/325 TID and Oxycontin 15 mg every 8 hours OARRS reviewed and consistent. UDS on 11/20/21 inconsistent. Addressed at previous office visit Continue diet changes for OIC. Keep active as possibe Follow-up in 2-3 months in office for [facility] right shoulder pain Pain level:05/09 Denies any ED visits or hospitalizations since last office visit Reports pain worse with activities of daily living, weather changes Reports pain better with ice, medications Describes pain in right shoulder as constant sharp sensation that radiates to fingers. States left shoulder hurting now due to compensating for right side States has numbness and tingling in both hands and fingers worse on right Denies falls Denies any issues with bowels or bladder. History of diverticulitis and IBS Denies nausea or vomting Denies dizziness States has headaches on occasion TENS Use: 2 times daily Benefit: moderate to minimal Physical assessment: Alert and oriented x3 Skin pink, warm, and dry. No conversational shortness of breath appreciated. Wearing face mask. Mood pleasant and cooperative. Able to ascend and descend from sitting position without difficulty Inspection of the right shoulder is largely unremarkable. There are no scars, masses or abnormalities noted. There is no effusion noted. Range of motion in the extremity/joint is mildly reduced. There is mild tenderness upon palpation of the anterior and posterior shoulder, AC joint, scapula and clavicle. Positive Ervin sign on right. Positive can test on right. Sensation is intact to the extremity. There is no hypo/hypersensitivity noted. Skin is warm and dry.There is peripheral edema noted to her melinda hands. Radial pulses present melinda. There are no skin changes or atrophy noted. Left shoulder range of motion with mild decreased in motion. Negative Hawkin sign on left. DOI: 10/15/2000 Claim#: [id number] Allowed Dx: S46.911A, S53.401A, S53.491A, M75.51, S53.491A, M75.101, M77.11, M12.531, M75.21, S53.431A, F45.42, F32.9 MCO: Medical Administrators [facility] 08-27-2022 Instructions Faiza Aragon APRN.MACHINE BUNCH MAKER - 08/27/2022 3:36 PM EST Continue Percocet 10/325 TID and Oxycontin 15 mg every 8 hours OARRS reviewed and consistent. UDS on 11/20/21 inconsistent. Addressed at previous office visit Sign Pain contract Submit C9 and order UDS C9 and schedule right suprascapular nerve block Submit C9 for TENS unit for right shoulder at least 3 times a day for about an hour Keep active as possibe Follow-up in 2-3 months in office for [facility] right shoulder pain Schedule appt for left shoulder non BWC first available documented in this encounter [facility] 08-27-2022 History of Presen t illness Narrative Patient was last seen by me on 05/23/22 for right shoulder pain. [facility] Last procedure: 03/01/2022 right suprascapular nerve block Plan of care: Continue Percocet 10/325 TID and Oxycontin 15 mg every 8 hours OARRS reviewed and consistent. UDS on 11/20/21 inconsistent. Addressed at previous office visit Continue diet changes for OIC. Keep active as possibe Follow-up in 2-3 months in office for [facility] right shoulder pain Pain level:05/09 Denies any ED visits or hospitalizations since last office visit Reports pain worse with activities of daily living, weather changes Reports pain better with ice, medications Describes pain in right shoulder as constant sharp sensation that radiates to fingers. States left shoulder hurting now due to compensating for right side States has numbness and tingling in both hands and fingers worse on right Denies falls Denies any issues with bowels or bladder. History of diverticulitis and IBS Denies nausea or vomting Denies dizziness States has headaches on occasion TENS Use: 2 times daily Benefit: moderate to minimal Physical assessment: Alert and oriented x3 Skin pink, warm, and dry. No conversational shortness of breath appreciated. Wearing face mask. Mood pleasant and cooperative. Able to ascend and descend from sitting position without difficulty Inspection of the right shoulder is largely unremarkable. There are no scars, masses or abnormalities noted. There is no effusion noted. Range of motion in the extremity/joint is mildly reduced. There is mild tenderness upon palpation of the anterior and posterior shoulder, AC joint, scapula and clavicle. Positive Ervin sign on right. Positive can test on right. Sensation is intact to the extremity. There is no hypo/hypersensitivity noted. Skin is warm and dry.There is peripheral edema noted to her melinda hands. Radial pulses present melinda. There are no skin changes or atrophy noted. Left shoulder range of motion with mild decreased in motion. Negative Hawkin sign on left. DOI: 10/15/2000 Claim#: [id number] Allowed Dx: S46.911A, S53.401A, S53.491A, M75.51, S53.491A, M75.101, M77.11, M12.531, M75.21, S53.431A, F45.42, F32.9 MCO: Medical Administrators documented in this encounter [facility] 08-26-2022 Miscellaneous Notes Answered in separate message Patient calls today. Reason for Call: Patient is requesting her recent lab results. Please advise Thank you! [phone] (home) [phone] (cell) Patient last appointment: 08/24/2022 Char Ellison documented in this encounter [facility] 08-24-2022 Miscellaneous Notes Opened in error documented in this encounter [facility] 08-21-2022 Nurse Note Venipuncture performed to left antecubital. Number of tubes collected: 1 gold and 1 lavender. documented in this encounter [facility] 08-13-2022 Miscellaneous Notes Can we get the CD ready for her? Also are we able to send that to [facility] along with her results since she signed the release. Please advise. Thank you Patient spoke with [facility] and they state they did not receive her xray results. She wanted to make sure these were sent? She signed a release last time she was in the office. Please advise, thank you! She gave me their number [phone] documented in this encounter [facility] 08-10-2022 Miscellaneous Notes The following approved medication requests have been transmitted electronically. Requested Prescriptions Signed Prescriptions Disp Refills oxyCODONE ER (OXYCONTIN) 15 mg 12 hr tablet 90 tablet 0 Sig: Take 1 tablet by mouth every 8 hours for 30 days. Do not start before August 24, 2022. Authorizing Provider: FAIZA ARAGON oxyCODONE-acetaminophen (PERCOCET 10) 10-325 mg tablet 90 tablet 0 Sig: Take 1 tablet by mouth three times daily as needed for pain for up to 30 days. Do not start before August 21, 2022. Authorizing Provider: FAIZA ARAGON promethazine (PHENERGAN) 25 mg tablet 60 tablet 0 Sig: Take 1 tablet by mouth every 6 hours as needed for nausea/vomiting. Authorizing Provider: FAIZA ARAGON tiZANidine (ZANAFLEX) 4 mg tablet 90 tablet 0 Sig: Take one pill by mouth 3 times a day as needed Authorizing Provider: FAIZA ARAGON APRN.MACHINE BUNCH MAKER Patient phones requesting refills as follows: Requested Prescriptions Pending Prescriptions Disp Refills oxyCODONE ER (OXYCONTIN) 15 mg 12 hr tablet 90 tablet 0 Sig: Take 1 tablet by mouth every 8 hours for 30 days. oxyCODONE-acetaminophen (PERCOCET 10) 10-325 mg tablet 90 tablet 0 Sig: Take 1 tablet by mouth three times daily as needed for pain for up to 30 days. promethazine (PHENERGAN) 25 mg tablet 60 tablet 0 Sig: Take 1 tablet by mouth every 6 hours as needed for nausea/vomiting. tiZANidine (ZANAFLEX) 4 mg tablet 90 tablet 0 Sig: Take one pill by mouth 3 times a day as needed Please review and advise. Pavithra Miles RN documented in this encounter [facility] 08-07-2022 Note HNO ID: [id number] Author: Gala Olmstead APRN.ARTUR Service: ? Author Type: Nurse Practitioner Type: Progress Notes Filed: 08/07/2022 6:15 PM Note Text: Clau French is a 67 year old female here today for a check up on her medical problems. Concern(s) today include: [place] [facility] [place] Headache (Has been getting more frequent migraines. ), and Insomnia (Patient was previously on Ambien to help with sleep then went off of because her insurance would not pay for it and states she spoke with someone yesterday through her insurance and they will cover it now. ) HPI Patient is here today to transfer care. She was previously seen by Andre Mendez CNP. She has not been seen for routine follow up CEDRICK: She had a home sleep study done in March 2021 but has never received those results. She states she snores very loudly and she has woken herself up gagging. She states her boyfriend and son have mentioned she stops breathing. Migraines: she has needed Maxalt 5-6 times this past month. She was [facility] this but has moved to this area and is not seeing them anymore. She would like to establish with neurology locally. Depression: She states current dose of Cymbalta is effective for symptoms. Insomnia: she was previously taking Ambien. She would like to restart this. GERD: she is taking Protonix daily. This is effective for symptoms. Hyperlipidemia: She is compliant with Lipitor. She denies muscle or joint pain that is worsening. Hypertension: Patient has no concerns since last visit. Patient is taking medications as prescribed. Patient denies chest pains, SOB, dizziness, swelling, weight changes. Patient is exercising regularly-walking Patient is not a smoker. Family Hx is significant for heart disease. Home b/p range 140/60s. Patient states pain clinic is filling her Ativan. I can not see recent fill on OARRs for this. She is established with [facility] pain [facility]. Her medications were reviewed today and her list is now up to date. She is compliant on taking her medications :Yes She is tolerating her medication(s) without side effects: Yes She is following an appropriate diet for her medical problems: Yes She is getting some exercise in? Yes ACTIVE PROBLEM LIST Migraine Hypertension Hyperlipidemia, Acquired Depressed Mood Gerd (Gastroesophageal Reflux Disease) PAST MEDICAL HISTORY Diagnosis Date Anxiety Arthritis Chicken pox Depressed mood Diverticulitis GERD (gastroesophageal reflux disease) Hyperlipidemia, acquired Hypertension Internal hemorrhoids Migraine Skin lesion of face PAST SURGICAL HISTORY Procedure Laterality Date SECTION HX x2 CHOLECYSTECTOMY VAGINAL HYSTERECTOMY UTERUS 250 GM/< XR CERVICAL FUSION OR Social History Tobacco Use Smoking status: Never Smokeless tobacco: Never Vaping Use Vaping Use: Never used Substance Use Topics Alcohol use: Yes Comment: Occasional Drug use: Not Currently Current Outpatient Medications on File Prior to Visit Medication Sig rizatriptan (MAXALT) 10 mg tablet TAKE 1 TABLET BY MOUTH at onset OF headache, may repeat dose in 2 (TWO) hours if needed LORazepam (ATIVAN) 1 mg tablet Take 1 mg by mouth every 6 hours as needed. oxyCODONE-acetaminophen (PERCOCET 10) 10-325 mg tablet Take 1 tablet by mouth three times daily as needed for pain for up to 30 days. Do not start before July 22, 2022. oxyCODONE ER (OXYCONTIN) 15 mg 12 hr tablet Take 1 tablet by mouth every 8 hours for 30 days. Do not start before July 25, 2022. promethazine (PHENERGAN) 25 mg tablet Take 1 tablet by mouth every 6 hours as needed for nausea/vomiting. hydrOXYzine HCl (ATARAX) 10 mg tablet Take 1 tablet by mouth three times daily as needed for anxiety. DULoxetine (CYMBALTA) 30 mg capsule TAKE 3 CAPSULES BY MOUTH ONCE DAILY tiZANidine (ZANAFLEX) 4 mg tablet Take one pill by mouth 3 times a day as needed carvedilol (COREG) 12.5 mg tablet TAKE 1 TABLET BY MOUTH TWICE DAILY naloxone 4 mg/actuation nasal spray (NARCAN) Use 1 spray in one nostril as needed for overdose. May repeat every 2 to 3 min in alternating nostrils until medical assistance is available esomeprazole magnesium (NEXIUM) 40 mg packet Nexium Packet [address] for susp in packet sucralfate (CARAFATE) 1 gram tablet Take 1 g by mouth. pantoprazole DR (PROTONIX) 40 mg tablet TAKE 1 TABLET BY MOUTH ONCE DAILY albuterol HFA (PROVENTIL HFA, VENTOLIN HFA) 90 mcg/actuation inhaler Inhale 1 Puff as instructed every 6 hours as needed. atorvastatin (LIPITOR) 10 mg tablet Take 1 tablet by mouth once daily. MULTIVITAMIN ORAL Take 1 tablet by mouth once daily. No current facility-administered medications on file prior to visit. FAMILY HISTORY Problem Relation Age of Onset Heart disease Father Coronary Artery Disease Father Hypertension Father Heart Attack Father Hypertension Mother (more content not included)... [facility] 08-07-2022 Miscellaneous Notes Patient is scheduled with Dr. Viramontes for 10/11/22 at 130pm documented in this encounter [facility] 08-07-2022 History of Presen t illness Narrative Clau French is a 67 year old female here today for a check up on her medical problems. Concern(s) today include: [place] [facility] [place] Headache (Has been getting more frequent migraines. ), and Insomnia (Patient was previously on Ambien to help with sleep then went off of because her insurance would not pay for it and states she spoke with someone yesterday through her insurance and they will cover it now. ) HPI Patient is here today to transfer care. She was previously seen by Andre Mendez CNP. She has not been seen for routine follow up CEDRICK: She had a home sleep study done in March 2021 but has never received those results. She states she snores very loudly and she has woken herself up gagging. She states her boyfriend and son have mentioned she stops breathing. Migraines: she has needed Maxalt 5-6 times this past month. She was seeing [facility] for this but has moved to this area and is not seeing them anymore. She would like to establish with neurology locally. Depression: She states current dose of Cymbalta is effective for symptoms. Insomnia: she was previously taking Ambien. She would like to restart this. GERD: she is taking Protonix daily. This is effective for symptoms. Hyperlipidemia: She is compliant with Lipitor. She denies muscle or joint pain that is worsening. Hypertension: Patient has no concerns since last visit. Patient is taking medications as prescribed. Patient denies chest pains, SOB, dizziness, swelling, weight changes. Patient is exercising regularly-walking Patient is not a smoker. Family Hx is significant for heart disease. Home b/p range 140/60s. Patient states pain clinic is filling her Ativan. I can not see recent fill on OARRs for this. She is established with [facility] pain management. Her medications were reviewed today and her list is now up to date. She is compliant on taking her medications :Yes She is tolerating her medication(s) without side effects: Yes She is following an appropriate diet for her medical problems: Yes She is getting some exercise in? Yes ACTIVE PROBLEM LIST Migraine Hypertension Hyperlipidemia, Acquired Depressed Mood Gerd (Gastroesophageal Reflux Disease) PAST MEDICAL HISTORY Diagnosis Date Anxiety Arthritis Chicken pox Depressed mood Diverticulitis GERD (gastroesophageal reflux disease) Hyperlipidemia, acquired Hypertension Internal hemorrhoids Migraine Skin lesion of face PAST SURGICAL HISTORY Procedure Laterality Date SECTION HX x2 CHOLECYSTECTOMY VAGINAL HYSTERECTOMY UTERUS 250 GM/< XR CERVICAL FUSION OR Social History Tobacco Use Smoking status: Never Smokeless tobacco: Never Vaping Use Vaping Use: Never used Substance Use Topics Alcohol use: Yes Comment: Occasional Drug use: Not Currently Current Outpatient Medications on File Prior to Visit Medication Sig rizatriptan (MAXALT) 10 mg tablet TAKE 1 TABLET BY MOUTH at onset OF headache, may repeat dose in 2 (TWO) hours if needed LORazepam (ATIVAN) 1 mg tablet Take 1 mg by mouth every 6 hours as needed. oxyCODONE-acetaminophen (PERCOCET 10) 10-325 mg tablet Take 1 tablet by mouth three times daily as needed for pain for up to 30 days. Do not start before July 22, 2022. oxyCODONE ER (OXYCONTIN) 15 mg 12 hr tablet Take 1 tablet by mouth every 8 hours for 30 days. Do not start before July 25, 2022. promethazine (PHENERGAN) 25 mg tablet Take 1 tablet by mouth every 6 hours as needed for nausea/vomiting. hydrOXYzine HCl (ATARAX) 10 mg tablet Take 1 tablet by mouth three times daily as needed for anxiety. DULoxetine (CYMBALTA) 30 mg capsule TAKE 3 CAPSULES BY MOUTH ONCE DAILY tiZANidine (ZANAFLEX) 4 mg tablet Take one pill by mouth 3 times a day as needed carvedilol (COREG) 12.5 mg tablet TAKE 1 TABLET BY MOUTH TWICE DAILY naloxone 4 mg/actuation nasal spray (NARCAN) Use 1 spray in one nostril as needed for overdose. May repeat every 2 to 3 min in alternating nostrils until medical assistance is available esomeprazole magnesium (NEXIUM) 40 mg packet Nexium Packet [address] for susp in packet sucralfate (CARAFATE) 1 gram tablet Take 1 g [address] mouth. [address]oprazole [address] (PROTONIX) 40 mg tablet TAKE 1 TABLET BY MOUTH ONCE DAILY albuterol HFA (PROVENTIL HFA, VENTOLIN HFA) 90 mcg/actuation inhaler Inhale 1 Puff as instructed every 6 hours as needed. atorvastatin (LIPITOR) 10 mg tablet Take 1 tablet by mouth once daily. MULTIVITAMIN ORAL Take 1 tablet by mouth once daily. No current facility-administered medications on file prior to visit. FAMILY HISTORY Problem Relation Age of Onset Heart disease Father Coronary Artery Disease Father Hypertension Father Heart Attack Father Hypertension Mother Heart disease Mother Heart disease Brother Diabetes Brother Hypertension Brother Diabetes Sister Cancer Maternal Aunt ALLERGIES Allergen Reactions Doxepin Other: See Comments Iodinated Contrast * Hives Morphine Hives Review of Systems Constitutional: Negative for chills and fever. Respiratory: Negative for cough and shortness of breath. Cardiovascular: Negative for chest pain and palpitations. Gastrointestinal: Negative for abdominal pain, constipation, diarrhea and nausea. Psychiatric/Behavioral: Positive for sleep disturbance. The patient is nervous/anxious. BP 146/72 (BP Site: Right Arm, BP Position: Sitting, BP Cuff Size: Regular Adult) Pulse 72 Wt 68 kg (150 lb) SpO2 98% BMI 29.29 kg/m BMI 29.29 kg/(m^2) Glucose (mg/dL) Date Value 07/19/2021 137 Potassium (mmol/L) Date Value 07/19/2021 4.7 Sodium (mmol/L) Date Value 07/19/2021 140 Chloride (mmol/L) Date Value 07/19/2021 103 CO2 (mmol/L) Date Value 07/19/2021 26 Creatinine (mg/dL) Date Value 07/19/2021 1.03 BUN (mg/dL) Date Value 07/19/2021 25 Anion Gap (mmol/L) Date Value 07/19/2021 15.7 Calcium (mg/dL) Date Value 07/19/2021 9.5 Cholesterol, Total Date Value Ref Range Status 07/19/2021 206 (H) 130 - 200 mg/dL Final HDL Cholesterol Date Value Ref Range Status 07/19/2021 39 mg/dL Final Comment: National Cholesterol Education Program (NCEP) guidelines: <40 mg/dL: Low HDL-Cholesterol(major risk factor for CHD) > or = 60 mg/dL: High HDL-Cholesterol( negative risk factor for CHD) HDL-cholesterol is affected by a number of factors, e.g., smoking, exercise, hormones, sex, and age. 4th Generation Test; Results may be approximately 7% lower than previous values. LDL Date Value Ref Range Status 07/19/2021 116 mg/dL Final Comment: LDL: OPTIMAL FOR PEOPLE AT VERY HIGH RISK <70 OPTIMAL <100 NEAR OPTIMAL 100-129 BORDERLINE HIGH 130-159 HIGH 160-189 VERY HIGH >=190 Source: 2009 NCEP ATP III, ADA Guidelines Reviewed: December, Triglyceride Date Value Ref Range Status 07/19/2021 253 mg/dL Final Comment: TRIG: DESIRABLE: <150 mg/dL No results found for: HBA1C Physical Exam Constitutional: Appearance: Normal appearance. HENT: Head: Normocephalic and atraumatic. Neck: Vascular: No carotid bruit. Cardiovascular: Rate and Rhythm: Normal rate and regular rhythm. Pulses: Normal pulses. Heart sounds: Normal heart sounds. No murmur heard. No friction rub. No gallop. Pulmonary: Effort: Pulmonary effort is normal. No respiratory distress. Breath sounds: Normal breath sounds. No stridor. No wheezing or rhonchi. Abdominal: General: Bowel sounds are normal. There is no distension. Palpations: Abdomen is soft. There is no mass. Tenderness: There is no abdominal tenderness. There is no guarding or rebound. Hernia: No hernia is present. Musculoskeletal: Cervical back: Neck supple. Neurological: Mental Status: She is alert and oriented to person, place, and time. Psychiatric: Mood and Affect: Mood normal. Behavior: Behavior normal. Thought Content: Thought content normal. Judgment: Judgment normal. ASSESSMENT/PLAN: 1. Hypertension, essential - ICD9: 401.9, ICD10: I10 (primary diagnosis) - fair control - Continue current medication(s) - Recommended regular aerobic exercise. - Recommend home blood pressure monitoring, to bring results in on next visit - Goal of BP <130/80 - CBC + DIFF - COMP METABOLIC PANEL 2. Hyperlipidemia, mixed - ICD9: 272.2, ICD10: E78.2 - to be determined upon return of lab results - Continue current medication. - COMP METABOLIC PANEL - LIPID PANEL BASIC 3. Migraine without status migrainosus, not intractable, unspecified migraine type - ICD9: 346.90, ICD10: G43.909 - CONSULT TO NEUROLOGY - RIZATRIPTAN 10 MG TABLET 4. Anxiety with depression - ICD9: 300.4, ICD10: F41.8 - DULOXETINE 30 MG CAPSULE,DELAYED RELEASE 5. Gastroesophageal reflux disease without esophagitis - ICD9: 530.81, ICD10: K21.9 - Stable. - continue current medication. 6. Chronic insomnia - ICD9: 780.52, ICD10: F51.04 - I do not recommend sleep aid until results of sleep study are reviewed. She reports episodes of apnea and snoring. - sleep study was done in March 2021. W 7. CEDRICK (obstructive sleep apnea) - ICD9: 327.23, ICD10: G47.33 Gala Olmstead APRN.CNP Medical Decision Making: Problems: Moderate: 2+ stable chronic illnesses Data: Unique test(s) ordered: 3+ Risk: Moderate: Drug management Medical Decision Making Level: 4 - Moderate FOLLOW UP: No follow-ups on file. Portions of this note have been entered by ancillary staff. I have reviewed and when necessary edited, so that they are an adequate record of my encounter with this patient. documented in this encounter [facility] 08-07-2022 Miscellaneous Notes First no-show letter sent. Sarah Solomon RN Patient's mail box if full, unable to leave message about missed appointment. Smita Owen documented in this encounter [facility] 08-06-2022 Miscellaneous Notes Pharmacy calls requesting refill: Requested Prescriptions Pending Prescriptions Disp Refills rizatriptan (MAXALT) 10 mg tablet [Pharmacy Med Name: rizatriptan 10 mg tablet] 12 tablet 1 Sig: TAKE 1 TABLET BY MOUTH at onset OF headache, may repeat dose in 2 (TWO) hours if needed Date of last visit:08/01/2022 Phone #: [phone] (home) [phone] (cell) The patients preferred pharmacy has been captured for this encounter? yes documented in this encounter [facility] 08-01-2022 Note HNO ID: [id number] Author: Lazaro Mendez APRN.MACHINE TRACER Service: ? Author Type: Nurse Practitioner Type: Progress Notes Filed: 08/01/2022 1:55 PM Note Text: Clau French is a 67 year old female here today acutely because of having: Sinus Problem URI: Patient has symptoms of nasal congestion, runny nose, face pain, cough, and headache. Symptoms on going for 3 weeks. Patient has tried OTC cold medication several weeks ago. Exposed to anyone with similar illness, no. Patient is not a smoker. Denies fever, SOB, chest pain, dizziness, nausea, vomiting, diarrhea. Review of Systems Constitutional: Negative for chills, fatigue and fever. HENT: Positive for congestion, postnasal drip, rhinorrhea and sinus pain. Negative for ear pain and sore throat. Respiratory: Positive for cough. Negative for chest tightness, shortness of breath and wheezing. Cardiovascular: Negative for chest pain, palpitations and leg swelling. Gastrointestinal: Negative for abdominal pain, diarrhea, nausea and vomiting. Skin: Negative for color change and rash. Neurological: Positive for headaches. Negative for dizziness. BP 154/68 Pulse 63 Temp 36.7 ?C (98 ?F) Ht 152.4 cm (5') Wt 67.1 kg (148 lb) SpO2 99% BMI 28.90 kg/m? BMI 28.90 kg/(m2) ALLERGIES Allergen Reactions Doxepin Other: See Comments Iodinated Contrast * Hives Morphine Hives Physical Exam Constitutional: Appearance: Normal appearance. HENT: Right Ear: Tympanic membrane, ear canal and external ear normal. Left Ear: Tympanic membrane, ear canal and external ear normal. Nose: Congestion and rhinorrhea present. Right Sinus: Maxillary sinus tenderness and frontal sinus tenderness present. Left Sinus: Maxillary sinus tenderness and frontal sinus tenderness present. Mouth/Throat: Mouth: Mucous membranes are moist. Pharynx: Posterior oropharyngeal erythema present. Comments: Yellow post nasal drainage Cardiovascular: Rate and Rhythm: Normal rate and regular rhythm. Heart sounds: Normal heart sounds. No murmur heard. Pulmonary: Effort: Pulmonary effort is normal. No respiratory distress. Breath sounds: Normal breath sounds. No wheezing. Neurological: Mental Status: She is alert and oriented to person, place, and time. ASSESSMENT/PLAN: 1. Bacterial sinusitis - ICD9: 473.9, 041.9, ICD10: J32.9, B96.89 - Will begin treatment with Augmentin 875 mg PO BID for 10 days - Supportive care with plenty of fluids, rest, and analgesia prn. Lazaro Mendez, MACHINE TRACER Follow Up: Return if symptoms worsen or fail to improve. Voice recognition software utilized. Minor grammatical and/or spelling errors may exist. Portions of this note have been entered by ancillary staff. I have reviewed and when necessary edited, so that they are an adequate record of my encounter with this patient. [facility] 08-01-2022 History of Presen t illness Narrative Clau French is a 67 year old female here today acutely because of having: Sinus Problem URI: Patient has symptoms of nasal congestion, runny nose, face pain, cough, and headache. Symptoms on going for 3 weeks. Patient has tried OTC cold medication several weeks ago. Exposed to anyone with similar illness, no. Patient is not a smoker. Denies fever, SOB, chest pain, dizziness, nausea, vomiting, diarrhea. Review of Systems Constitutional: Negative for chills, fatigue and fever. HENT: Positive for congestion, postnasal drip, rhinorrhea and sinus pain. Negative for ear pain and sore throat. Respiratory: Positive for cough. Negative for chest tightness, shortness of breath and wheezing. Cardiovascular: Negative for chest pain, palpitations and leg swelling. Gastrointestinal: Negative for abdominal pain, diarrhea, nausea and vomiting. Skin: Negative for color change and rash. Neurological: Positive for headaches. Negative for dizziness. BP 154/68 Pulse 63 Temp 36.7 C (98 F) Ht 152.4 cm (5') Wt 67.1 kg (148 lb) SpO2 99% BMI 28.90 kg/m BMI 28.90 kg/(m^2) ALLERGIES Allergen Reactions Doxepin Other: See Comments Iodinated Contrast * Hives Morphine Hives Physical Exam Constitutional: Appearance: Normal appearance. HENT: Right Ear: Tympanic membrane, ear canal and external ear normal. Left Ear: Tympanic membrane, ear canal and external ear normal. Nose: Congestion and rhinorrhea present. Right Sinus: Maxillary sinus tenderness and frontal sinus tenderness present. Left Sinus: Maxillary sinus tenderness and frontal sinus tenderness present. Mouth/Throat: Mouth: Mucous membranes are moist. Pharynx: Posterior oropharyngeal erythema present. Comments: Yellow post nasal drainage Cardiovascular: Rate and Rhythm: Normal rate and regular rhythm. Heart sounds: Normal heart sounds. No murmur heard. Pulmonary: Effort: Pulmonary effort is normal. No respiratory distress. Breath sounds: Normal breath sounds. No wheezing. Neurological: Mental Status: She is alert and oriented to person, place, and time. ASSESSMENT/PLAN: 1. Bacterial sinusitis - ICD9: 473.9, 041.9, ICD10: J32.9, B96.89 - Will begin treatment with Augmentin 875 mg PO BID for 10 days - Supportive care with plenty of fluids, rest, and analgesia prn. Lazaro Mendez CNP Follow Up: Return if symptoms worsen or fail to improve. Voice recognition software utilized. Minor grammatical and/or spelling errors may exist. Portions of this note have been entered by ancillary staff. I have reviewed and when necessary edited, so that they are an adequate record of my encounter with this patient. documented in this encounter [facility] 07-26-2022 Miscellaneous Notes Called patient to schedule an appointment if she is wanting to re start Ambien. Per below it was discontinued. Patient has upcoming appointment w Julián Clement on 08/13. Left detailed message about this and offered to move appointment up if needed with Julián. Per Andre, This medication was cancelled in January. I am not able to proceed with ZULMA Joyce You are correct. It was cancelled in january. Thank you Lazaro Mendez APRN.MACHINE TRACER It looks like per the chart that the Ambien was discontinued on 02/05/2022. Please advise Christos Joyce Patient called stating that her Ambien 10mg needs a prior auth. Please advise, thank you documented in this encounter [facility] 07-24-2022 Note HNO ID: [id number] Author: Sridhar Doan Service: ? Author Type: ? Type: Progress Notes Filed: 07/25/2022 10:59 AM Note Text: Attestation signed by Jonhathan Mojica RPh at 07/25/2022 10:59 AM The patient's case was discussed with the student who saw the patient with me. Stephens elements of history confirmed during visit. Agree with findings and plan as outlined by the student. My additions to the note are underlined. Johnathan Mojica, PharmD, MEd, BCPS, [facility] Clau French is identified through a medication adherence outreach initiative based on pharmacy claims data from Medicare (insurer) for Statin medication(s). Patient is reviewed 07/24/22 due to medication adherence concerns with the following medications (name, strength): atorvastatin 10mg. Per data report last fill date and quantity: 05/29/22 30 days supply Per reconcile dispense: 07/03/22 100 days supply Any need for medication refills YES/NO/Active: yes, only 20 tablets left on rx per pharmacy, will likely before next fill Outcome of review: (choose one of the options selected in excel spreadsheet) - Picked up per pharmacy Sridhar Doan [facility] 07-24-2022 History of Presen t illness Narrative Clau French is identified through a medication adherence outreach initiative based on pharmacy claims data from Medicare (insurer) for Statin medication(s). Patient is reviewed 07/24/22 due to medication adherence concerns with the following medications (name, strength): atorvastatin 10mg. Per data report last fill date and quantity: 05/29/22 30 days supply Per reconcile dispense: 07/03/22 100 days supply Any need for medication refills YES/NO/Active: yes, only 20 tablets left on rx per pharmacy, will likely before next fill Outcome of review: (choose one of the options selected in excel spreadsheet) - Picked up per pharmacy Sridhar Doan Associated attestation - Johnathan Mojica, [facility] - 07/25/2022 10:59 AM EDT The patient's case was discussed with the student who saw the patient with me. Stephens elements of history confirmed during visit. Agree with findings and plan as outlined by the student. My additions to the note are underlined. Johnathan Mojica PharmD, MEd, BCPS, CDCES documented in this encounter [facility] 07-24-2022 Note Patient Outreach ( POCASSIUS) CLAU RODRIGUES ([id number]) 1955 F Date Time Provider Department 07/24/22 JOHNATHAN MOJICA During your visit today, we recorded the following information about you: Sridhar Doan 07/25/2022 10:59 AM Attested Attestation signed by Johnathan Mojica [facility] at 07/25/2022 10:59 AM The patient's case was discussed with the student who saw the patient with me. Stephens elements of history confirmed during visit. Agree with findings and plan as outlined by the student. My additions to the note are underlined. Johnathan Mojica PharmD, MEd, BCPS, CDCES Clau French is identified through a medication adherence outreach initiative based on pharmacy claims data from Medicare (insurer) for Statin medication(s). Patient is reviewed 07/24/22 due to medication adherence concerns with the following medications (name, strength): atorvastatin 10mg. Per data report last fill date and quantity: 05/29/22 30 days supply Per reconcile dispense: 07/03/22 100 days supply Any need for medication refills YES/NO/Active: yes, only 20 tablets left on rx per pharmacy, will likely before next fill Outcome of review: (choose one of the options selected in excel spreadsheet) - Picked up per pharmacy Sridhar Olimpia Allergies As of Date: 07/24/2022 Noted Allergy Reaction DOXEPIN 06/22/2009 14 - Other: See Comments IODINATED CONTRAST MEDIA 04/24/2006 4 - Hives MORPHINE 01/05/2019 4 - Hives Date Reviewed: 07/23/2022 Reviewed by: Debbie Ruiz MD - Fully Assessed Reason for Visit: Allied Health Visit [5] Cmt: Medication Adherence Outreach Prescriptions as of 07/25/2022 - LORazepam (ATIVAN) 1 mg tablet Take 1 mg by mouth every 6 hours as needed. - oxyCODONE-acetaminophen (PERCOCET 10) 10-325 mg tablet Take 1 tablet by mouth three times daily as needed for pain for up to 30 days. Do not start before July 22, 2022. - oxyCODONE ER (OXYCONTIN) 15 mg 12 hr tablet Take 1 tablet by mouth every 8 hours for 30 days. Do not start before July 25, 2022. - promethazine (PHENERGAN) 25 mg tablet Take 1 tablet by mouth every 6 hours as needed for nausea/vomiting. - hydrOXYzine HCl (ATARAX) 10 mg tablet Take 1 tablet by mouth three times daily as needed for anxiety. - DULoxetine (CYMBALTA) 30 mg capsule TAKE 3 CAPSULES BY MOUTH ONCE DAILY - tiZANidine (ZANAFLEX) 4 mg tablet Take one pill by mouth 3 times a day as needed - carvedilol (COREG) 12.5 mg tablet TAKE 1 TABLET BY MOUTH TWICE DAILY - naloxone 4 mg/actuation nasal spray (NARCAN) Use 1 spray in one nostril as needed for overdose. May repeat every 2 to 3 min in alternating nostrils until medical assistance is available - esomeprazole magnesium (NEXIUM) 40 mg packet Nexium Packet [address] for susp in packet - sucralfate (CARAFATE) 1 gram tablet Take 1 g by mouth. - pantoprazole DR (PROTONIX) 40 mg tablet TAKE 1 TABLET BY MOUTH ONCE DAILY - albuterol HFA (PROVENTIL HFA, VENTOLIN HFA) 90 mcg/actuation inhaler Inhale 1 Puff as instructed every 6 hours as needed. - rizatriptan (MAXALT) 10 mg tablet Take 1 tablet by mouth as needed. May repeat a 2nd dose after 2 hours - atorvastatin (LIPITOR) 10 mg tablet Take 1 tablet by mouth once daily. - MULTIVITAMIN ORAL Take 1 tablet by mouth once daily. Problem List As Of Date 07/24/2022 Noted Resolved Migraine [G43.909] Hypertension [I10] Hyperlipidemia, acquired [E78.5] Depressed mood [R45.89] GERD (gastroesophageal reflux disease) [K21.9] Encounter Status:Closed by JOHNATHAN MOJICA on 07/25/22 [facility] 07-23-2022 Note HNO ID: [id number] Author: Debbie Ruiz MD Service: ? Author Type: Physician Type: Progress Notes Filed: 07/23/2022 2:06 PM Note Text: SERVICE DATE: July 23, 2022 1:43 PM PCP: Lazaro Mendez APRN.MACHINE TRACER Consult requested by Chance Clement CNP for an opinion regarding chief complaint as stated below. My final impression and recommendations will be communicated back to the requesting physician by way of the shared medical record or letter via US mail. Subjective Patient ID: Clau French is a 67 year old female presenting today with a complaint of left shoulder pain. HPI: Patient presents with nondominant left upper extremity complaints. She describes constant diffuse left shoulder pain over the last 21 years. She believes her pain is related to overuse. Her pain radiates down her arm and up into her neck. She has previously undergone cervical spine fusion. She also notes loss of motion, clicking, weakness, grinding, instability, popping, and locking. She has a sense of instability in her shoulder along with numbness and tingling. She has previously been evaluated by her primary care provider including x-rays and ultrasound study. She states her left shoulder is currently functioning at 40% of normal. She has difficulty with activities such as putting on a coat, sleeping on her left side, combing her hair, reaching a high shelf, and throwing a ball overhand. She states she is unable to wash her back or lift ten pounds over shoulder level. She presents for further treatment recommendations. 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 She is a pain clinic patient and utilizes oxycodone and OxyContin. Sofía Renae scribe, transcribing for Debbie Ruiz MD PAIN EVALUATION 07/23/2022 1311 Pain Level: 8 Pain Location: Shoulder-Left Description: Aching;Burning;Numbness;Throbbin g;Tingling Duration Amount of Time: 21 Duration Units: Years Frequency: Continuous Intervention/Comfort measure: Medication Comments: OXYCODONE, OXYCONTIN ALLERGIES Allergen Reactions Doxepin Other: See Comments Iodinated Contrast * Hives Morphine Hives PAST MEDICAL HISTORY Diagnosis Date Anxiety Arthritis Chicken pox Depressed mood Diverticulitis GERD (gastroesophageal reflux disease) Hyperlipidemia, acquired Hypertension Internal hemorrhoids Migraine Skin lesion of face PAST SURGICAL HISTORY Procedure Laterality Date SECTION HX x2 CHOLECYSTECTOMY VAGINAL HYSTERECTOMY UTERUS 250 GM/< XR CERVICAL FUSION OR FAMILY HISTORY Problem Relation Age of Onset Heart disease Father Coronary Artery Disease Father Hypertension Father Heart Attack Father Hypertension Mother Heart disease Mother Heart disease Brother Diabetes Brother Hypertension Brother Diabetes Sister Cancer Maternal Aunt Social History Tobacco Use Smoking status: Never Smokeless tobacco: Never Vaping Use Vaping Use: Never used Substance Use Topics Alcohol use: Yes Comment: Occasional Drug use: Not Currently Current Outpatient Medications Medication Sig Dispense Refill LORazepam (ATIVAN) 1 mg tablet Take 1 mg by mouth every 6 hours as needed. oxyCODONE-acetaminophen (PERCOCET 10) 10-325 mg tablet Take 1 tablet by mouth three times daily as needed for pain for up to 30 days. Do not start before July 22, 2022. 90 tablet 0 [START ON 07/25/2022] oxyCODONE ER (OXYCONTIN) 15 mg 12 hr tablet Take 1 tablet by mouth every 8 hours for 30 days. Do not start before July 25, 2022. 90 tablet 0 promethazine (PHENERGAN) 25 mg tablet Take 1 tablet by mouth every 6 hours as needed for nausea/vomiting. 60 tablet 0 hydrOXYzine HCl (ATARAX) 10 mg tablet Take 1 tablet by mouth three times daily as needed for anxiety. 90 tablet 1 DULoxetine (CYMBALTA) 30 mg capsule TAKE 3 CAPSULES BY MOUTH ONCE DAILY 270 capsule 3 tiZANidine (ZANAFLEX) 4 mg tablet Take one pill by mouth 3 times a day as needed 90 tablet 0 carvedilol (COREG) 12.5 mg tablet TAKE 1 TABLET BY MOUTH TWICE DAILY 60 tablet 4 naloxone 4 mg/actuation nasal spray (NARCAN) Use 1 spray in one nostril as needed for overdose. May repeat every 2 to 3 min in alternating nostrils until medical assistance is available 1 Each 0 esomeprazole magnesium (NEXIUM) 40 mg packet Nexium Packet [address] for susp in packet sucralfate (CARAFATE) 1 gram tablet Take 1 g by mouth. pantoprazole DR (PROTONIX) 40 mg tablet TAKE 1 TABLET BY MOUTH ONCE DAILY 30 tablet 4 albuterol HFA (PROVENTIL HFA, VENTOLIN HFA) 90 mcg/actuation inhaler Inhale 1 Puff as instructed every 6 hours as needed. 18 g 5 rizatriptan (MAXALT) 10 mg tablet Take 1 tablet by mouth as needed. May repeat a 2nd dose after 2 hours 12 tablet 1 atorvastatin (LIPITOR) 10 mg tablet Take 1 tablet by mouth once daily. 30 tablet 11 MULTIVITAMIN ORAL Take 1 (more content not included)... [facility] 07-23-2022 History of Presen t illness Narrative SERVICE DATE: July 23, 2022 1:43 PM PCP: Lazaro Mendez APRN.MACHINE TRACER Consult requested by Chance Clement CNP for an opinion regarding chief complaint as stated below. My final impression and recommendations will be communicated back to the requesting physician by way of the shared medical record or letter via [place] mail. Subjective Patient ID: Clau French is a 67 year old female presenting today with a complaint of left shoulder pain. HPI: Patient presents with nondominant left upper extremity complaints. She describes constant diffuse left shoulder pain over the last 21 years. She believes her pain is related to overuse. Her pain radiates down her arm and up into her neck. She has previously undergone cervical spine fusion. She also notes loss of motion, clicking, weakness, grinding, instability, popping, and locking. She has a sense of instability in her shoulder along with numbness and tingling. She has previously been evaluated by her primary care provider including x-rays and ultrasound study. She states her left shoulder is currently functioning at 40% of normal. She has difficulty with activities such as putting on a coat, sleeping on her left side, combing her hair, reaching a high shelf, and throwing a ball overhand. She states she is unable to wash her back or lift ten pounds over shoulder level. She presents for further treatment recommendations. 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 She is a pain clinic patient and utilizes oxycodone and OxyContin. Sofía Renae scribe, transcribing for Debbie Ruiz MD PAIN EVALUATION 07/23/2022 1311 Pain Level: 8 Pain Location: Shoulder-Left Description: Aching;Burning;Numbness;Throbbin g;Tingling Duration Amount of Time: 21 Duration Units: Years Frequency: Continuous Intervention/Comfort measure: Medication Comments: OXYCODONE, OXYCONTIN ALLERGIES Allergen Reactions Doxepin Other: See Comments Iodinated Contrast * Hives Morphine Hives PAST MEDICAL HISTORY Diagnosis Date Anxiety Arthritis Chicken pox Depressed mood Diverticulitis GERD (gastroesophageal reflux disease) Hyperlipidemia, acquired Hypertension Internal hemorrhoids Migraine Skin lesion of face PAST SURGICAL HISTORY Procedure Laterality Date SECTION HX x2 CHOLECYSTECTOMY VAGINAL HYSTERECTOMY UTERUS 250 GM/< XR CERVICAL FUSION OR FAMILY HISTORY Problem Relation Age of Onset Heart disease Father Coronary Artery Disease Father Hypertension Father Heart Attack Father Hypertension Mother Heart disease Mother Heart disease Brother Diabetes Brother Hypertension Brother Diabetes Sister Cancer Maternal Aunt Social History Tobacco Use Smoking status: Never Smokeless tobacco: Never Vaping Use Vaping Use: Never used Substance Use Topics Alcohol use: Yes Comment: Occasional Drug use: Not Currently Current Outpatient Medications Medication Sig Dispense Refill LORazepam (ATIVAN) 1 mg tablet Take 1 mg by mouth every 6 hours as needed. oxyCODONE-acetaminophen (PERCOCET 10) 10-325 mg tablet Take 1 tablet by mouth three times daily as needed for pain for up to 30 days. Do not start before July 22, 2022. 90 tablet 0 [START ON 07/25/2022] oxyCODONE ER (OXYCONTIN) 15 mg 12 hr tablet Take 1 tablet by mouth every 8 hours for 30 days. Do not start before July 25, 2022. 90 tablet 0 promethazine (PHENERGAN) 25 mg tablet Take 1 tablet by mouth every 6 hours as needed for nausea/vomiting. 60 tablet 0 hydrOXYzine HCl (ATARAX) 10 mg tablet Take 1 tablet by mouth three times daily as needed for anxiety. 90 tablet 1 DULoxetine (CYMBALTA) 30 mg capsule TAKE 3 CAPSULES BY MOUTH ONCE DAILY 270 capsule 3 tiZANidine (ZANAFLEX) 4 mg tablet Take one pill by mouth 3 times a day as needed 90 tablet 0 carvedilol (COREG) 12.5 mg tablet TAKE 1 TABLET BY MOUTH TWICE DAILY 60 tablet 4 naloxone 4 mg/actuation nasal spray (NARCAN) Use 1 spray in one nostril as needed for overdose. May repeat every 2 to 3 min in alternating nostrils until medical assistance is available 1 Each 0 esomeprazole magnesium (NEXIUM) 40 mg packet Nexium Packet [address] for susp in packet sucralfate (CARAFATE) 1 gram tablet Take 1 g [address] mouth. [address]op[address] (PROTONIX) 40 mg tablet TAKE 1 TABLET BY MOUTH ONCE DAILY 30 tablet 4 albuterol HFA (PROVENTIL HFA, VENTOLIN HFA) 90 mcg/actuation inhaler Inhale 1 Puff as instructed every 6 hours as needed. 18 g 5 rizatriptan (MAXALT) 10 mg tablet Take 1 tablet by mouth as needed. May repeat a 2nd dose after 2 hours 12 tablet 1 atorvastatin (LIPITOR) 10 mg tablet Take 1 tablet by mouth once daily. 30 tablet 11 MULTIVITAMIN ORAL Take 1 tablet by mouth once daily. No current facility-administered medications for this visit. Allergies, medications, past surgical history, family history and past medical history were reviewed per this encounter. Review of Systems Constitutional: Positive for fatigue. Negative for activity change, chills, fever and unexpected weight change. HENT: Positive for tinnitus and trouble swallowing. Negative for sore throat and voice change. Eyes: Negative for visual disturbance. Respiratory: Positive for apnea (sleep apnea). Negative for cough, shortness of breath and wheezing. Cardiovascular: Negative for chest pain, palpitations and leg swelling. Gastrointestinal: Positive for diarrhea. Negative for constipation, nausea and vomiting. Genitourinary: Negative for difficulty urinating, dysuria, frequency and urgency. Musculoskeletal: See HPI Skin: Negative for color change, rash and wound. Neurological: Positive for headaches. Negative for dizziness, seizures and syncope. Hematological: Bruises/bleeds easily. Psychiatric/Behavioral: Negative for behavioral problems and decreased concentration. The patient is nervous/anxious (anxiety and depression). Physical Exam BP 171/70 Pulse 80 Ht 152.4 cm (5') Wt 68 kg (149 lb 14.4 oz) BMI 29.28 kg/m General: Alert and oriented. No acute distress. Ambulation status: Within normal limits. Appearance: Within normal limits, well nourished, well developed. Behavior: Within normal limits, appropriate cooperative. Pulmonary: Non-labored respirations Cardio: Peripheral pulses intact Right Shoulder Exam Tenderness The patient is experiencing no tenderness. Range of Motion The patient has normal right shoulder ROM. Muscle Strength The patient has normal right shoulder strength. Tests Apprehension: negative Ervin test: negative Cross arm: negative Impingement: negative Other Erythema: absent Scars: absent Sensation: normal Pulse: present Left Shoulder Exam Tenderness Left shoulder tenderness location: global. Range of Motion Forward flexion: 100 Muscle Strength Internal rotation: 5/5 External rotation: 5/5 Supraspinatus: 4/5 Tests Apprehension: negative Ervin test: positive Cross arm: negative Impingement: positive Other Erythema: absent Scars: absent Sensation: normal Pulse: present IMAGING: Personal review of left shoulder x-rays from [facility] on 06/26/2022 show elevation of the humeral head with acetabularization of the acromion. Rotator cuff arthropathy is noted. Assessment/Plan ASSESSMENT:Left rotator cuff arthropathy Encounter Diagnosis ICD-10-CM 1. Rotator cuff tear arthropathy, left M75.102 M12.812 PLAN: We discussed the diagnosis and reviewed the treatment options. She is interested in a reverse shoulder arthroplasty. We will refer the patient to Dr Robles to further discuss this option. Return for Margaret. Debbie Ruiz MD This note was generated with voice recognition software and may contain errors including spelling, grammar, syntax and misrecognition of what was dictated, that are not fully corrected. documented in this encounter [facility] 07-20-2022 Miscellaneous Notes Faxed medical records request to [facility] today. Patient requested paper to be sent and a CD Information scanned onto patient's chart. Patient calls today. Reason for Call: Patient said she filled out a [employer] form earlier today but didn't have the address to send the records to. Address is [facility] [address], [place] [address] (home) [phone] (cell) Patient last appointment: 07/11/2022 Char Ellison documented in this encounter [facility] 07-16-2022 Miscellaneous Notes The following approved medication requests have been transmitted electronically. Requested Prescriptions Signed Prescriptions Disp Refills oxyCODONE-acetaminophen (PERCOCET 10) 10-325 mg tablet 90 tablet 0 Sig: Take 1 tablet by mouth three times daily as needed for pain for up to 30 days. Do not start before July 22, 2022. Authorizing Provider: FAIZA ARAGON oxyCODONE ER (OXYCONTIN) 15 mg 12 hr tablet 90 tablet 0 Sig: Take 1 tablet by mouth every 8 hours for 30 days. Do not start before July 25, 2022. Authorizing Provider: FAIZA ARAGON promethazine (PHENERGAN) 25 mg tablet 60 tablet 0 Sig: Take 1 tablet by mouth every 6 hours as needed for nausea/vomiting. Authorizing Provider: FAIZA ARAGON APRN.MACHINE BUNCH MAKER The following approved medication requests have been transmitted electronically. Requested Prescriptions Signed Prescriptions Disp Refills oxyCODONE-acetaminophen (PERCOCET 10) 10-325 mg tablet 90 tablet 0 Sig: Take 1 tablet by mouth three times daily as needed for pain for up to 30 days. Do not start before July 22, 2022. Authorizing Provider: FAIZA ARAGON oxyCODONE ER (OXYCONTIN) 15 mg 12 hr tablet 90 tablet 0 Sig: Take 1 tablet by mouth every 8 hours for 30 days. Do not start before July 25, 2022. Authorizing Provider: FAIZA ARAGON promethazine (PHENERGAN) 25 mg tablet 60 tablet 0 Sig: Take 1 tablet by mouth every 6 hours as needed for nausea/vomiting. Authorizing Provider: FAIZA ARAGON APRN.CNS The following approved medication requests have been transmitted electronically. Requested Prescriptions Signed Prescriptions Disp Refills oxyCODONE-acetaminophen (PERCOCET 10) 10-325 mg tablet 90 tablet 0 Sig: Take 1 tablet by mouth three times daily as needed for pain for up to 30 days. Do not start before July 22, 2022. Authorizing Provider: FAIZA ARAGON oxyCODONE ER (OXYCONTIN) 15 mg 12 hr tablet 90 tablet 0 Sig: Take 1 tablet by mouth every 8 hours for 30 days. Do not start before July 25, 2022. Authorizing Provider: FAIZA ARAGON promethazine (PHENERGAN) 25 mg tablet 60 tablet 0 Sig: Take 1 tablet by mouth every 6 hours as needed for nausea/vomiting. Authorizing Provider: FAIZA ARAGON APRN.MACHINE [employer] Patient phones requesting refills as follows: Requested Prescriptions Pending Prescriptions Disp Refills oxyCODONE-acetaminophen (PERCOCET 10) 10-325 mg tablet 90 tablet 0 Sig: Take 1 tablet by mouth three times daily as needed for pain for up to 30 days. oxyCODONE ER (OXYCONTIN) 15 mg 12 hr tablet 90 tablet 0 Sig: Take 1 tablet by mouth every 8 hours for 30 days. promethazine (PHENERGAN) 25 mg tablet 60 tablet 0 Sig: Take 1 tablet by mouth every 6 hours as needed for nausea/vomiting. Please review and advise. Pavithra Miles RN documented in this encounter [facility] 07-11-2022 Miscellaneous Notes Called pharmacy and they stated she has picked up her medication already. Left another message to call. Two messages in her chart. Please advise on both. Called and left message to call the off. IF patient calls back please informed her of last message. Please let the pt know that I sent in Augmentin Thank you Lazaro Mendez APRN.ARTUR Patient asked if you will send in an antibiotic for diverticulitis flare up. Diarrhea, stomach cramps, not eating. No vomiting, no fever. Thank you. Elba Espino documented in this encounter [facility] 07-11-2022 Miscellaneous Notes We received an email from [facility] that auth needs completed. Request completed and approved; #[id number], 11/28/2021 - 09/29/2022. documented in this encounter [facility] 07-10-2022 Miscellaneous Notes Left message to call office. Please schedule with [facility] when she calls back. Thanks. Orthopedics referral placed. Patient agreed with referral and is ok with [facility]. Thank you. Attempted to call pt and left message to call the office back. Please advise pt of Julián's previous message. Thank you. I will recommend orthopedics referral for the shoulder pain I can address the call, thanks Andre! Pt called back and was advised the message. Pt would like to know what the next step is. Please advise. Thank you Patient was called and left a message to return call. Please advise, moderate osteoarthritis of the shoulder noted. Mass US indicates likely lipoma which is not a worrisome finding. Patient calls today. Reason for Call: requesting the results of her shoulder xray. Please Advise Thank you [phone] (home) [phone] (cell) Patient last appointment: 06/25/2022 Mariann Arzate documented in this encounter [facility] 06-25-2022 Note HNO ID: [id number] Author: Julián Clement APRN.CNP Service: ? Author Type: Nurse Practitioner Type: Progress Notes Filed: 06/25/2022 11:43 AM Note Text: [facility] PROGRESS NOTE Encounter Date: 06/25/2022 Chief Complaint: Mass (Two lumps on left bicep area. First one started about two months ago. Pain stated around two weeks ago.) and Anxiety (Discuss maybe increasing cymbalta due to increased anxiety) Clau presents today with concern for painful lumps to the left arm, left shoulder pain and recent increase in anxiety: Mass to the left arm: Client reports two distinct masses to the left arm. The first developed about 6 months ago, to the left antecubital region. Client notes this area has increase in size over the past 6 months and is now becoming painful. She notes pain with or without direct palpation. She reports second area developed overlying the left bicep. This area began about one month ago and seems to be increasing in size. This area is now becoming painful as well. Left shoulder pain: 6-12 month history of left shoulder pain with limitation in ROM. Denies any known history of injury. Reports pain primarily through the lateral shoulder and radiating down the deltoid. Client reports pain is rather constant with deep, aching type pain. Client denies any associated numbness/tingling or weakness of the LUE. Anxiety: Client states 6 month history of increase in anxiety symptoms, despite three times daily use of cymbalta. Client reports she is often feeling anxious/worried. She notes near panic attack levels of anxiety at times. She reports difficulty sleeping, due to ruminating thoughts. Client would like to consider additional medication to help with anxiety. Review of Systems Constitutional: Negative for chills, diaphoresis, fever, malaise/fatigue and weight loss. HENT: Negative for congestion, ear discharge, ear pain, hearing loss, nosebleeds, sinus pain, sore throat and tinnitus. Eyes: Negative for blurred vision, double vision, photophobia and pain. Respiratory: Negative for cough, sputum production, shortness of breath, wheezing and stridor. Cardiovascular: Negative for chest pain, palpitations, claudication and leg swelling. Gastrointestinal: Negative for abdominal pain, blood in stool, constipation, diarrhea, heartburn, nausea and vomiting. Genitourinary: Negative for dysuria, frequency and urgency. Musculoskeletal: Positive for joint pain. Negative for back pain, falls, myalgias and neck pain. Skin: Negative for itching and rash. Painful masses to the left arm as noted. Neurological: Negative for dizziness, tingling, tremors, sensory change, speech change, focal weakness, seizures, loss of consciousness, weakness and headaches. Endo/Heme/Allergies: Does not bruise/bleed easily. Psychiatric/Behavioral: Negative for depression, hallucinations, substance abuse and suicidal ideas. The patient is nervous/anxious. PAST MEDICAL HISTORY Diagnosis Date Anxiety Arthritis Chicken pox Depressed mood Diverticulitis GERD (gastroesophageal reflux disease) Hyperlipidemia, acquired Hypertension Internal hemorrhoids Migraine Skin lesion of face ALLERGIES Allergen Reactions Doxepin Other: See Comments Iodinated Contrast * Hives Morphine Hives Current Outpatient Medications on File Prior to Visit Medication Sig oxyCODONE ER (OXYCONTIN) 15 mg 12 hr tablet Take 1 tablet by mouth every 8 hours for 30 days. Do not start before June 25, 2022. oxyCODONE-acetaminophen (PERCOCET 10) 10-325 mg tablet Take 1 tablet by mouth three times daily as needed for pain for up to 30 days. Do not start before June 22, 2022. DULoxetine (CYMBALTA) 30 mg capsule TAKE 3 CAPSULES BY MOUTH ONCE DAILY tiZANidine (ZANAFLEX) 4 mg tablet Take one pill by mouth 3 times a day as needed promethazine (PHENERGAN) 25 mg tablet Take 1 tablet by mouth every 6 hours as needed for nausea/vomiting. carvedilol (COREG) 12.5 mg tablet TAKE 1 TABLET BY MOUTH TWICE DAILY naloxone 4 mg/actuation nasal spray (NARCAN) Use 1 spray in one nostril as needed for overdose. May repeat every 2 to 3 min in alternating nostrils until medical assistance is available esomeprazole magnesium (NEXIUM) 40 mg packet Nexium Packet [address] for susp in packet sucralfate (CARAFATE) 1 gram tablet Take 1 g by mouth. pantoprazole DR (PROTONIX) 40 mg tablet TAKE 1 TABLET BY MOUTH ONCE DAILY albuterol HFA (PROVENTIL HFA, VENTOLIN HFA) 90 mcg/actuation inhaler Inhale 1 Puff as instructed every 6 hours as needed. rizatriptan (MAXALT) 10 mg tablet Take 1 tablet by mouth as needed. May repeat a 2nd dose after 2 hours atorvastatin (LIPITOR) 10 mg tablet Take 1 tablet by mouth once daily. MULTIVITAMIN ORAL Take 1 tablet by mouth once daily. No current facility-administered medications on file prior to visit. Social History T (more content not included)... [facility] 06-25-2022 Nurse Note 2 VIEW LEFT SHOULDER x-ray performed @ [facility] Sisi Shearer RT(R) documented in this encounter [facility] 06-25-2022 Miscellaneous Notes Patient scheduled for US on June 26 at 12:15. Patient advised of location, date and time. Order faxed to [facility]. documented in this encounter [facility] 06-25-2022 History of Presen t illness Narrative [facility] PROGRESS NOTE Encounter Date: 06/25/2022 Chief Complaint: Mass (Two lumps on left bicep area. First one started about two months ago. Pain stated around two weeks ago.) and Anxiety (Discuss maybe increasing cymbalta due to increased anxiety) Clau presents today with concern for painful lumps to the left arm, left shoulder pain and recent increase in anxiety: Mass to the left arm: Client reports two distinct masses to the left arm. The first developed about 6 months ago, to the left antecubital region. Client notes this area has increase in size over the past 6 months and is now becoming painful. She notes pain with or without direct palpation. She reports second area developed overlying the left bicep. This area began about one month ago and seems to be increasing in size. This area is now becoming painful as well. Left shoulder pain: 6-12 month history of left shoulder pain with limitation in ROM. Denies any known history of injury. Reports pain primarily through the lateral shoulder and radiating down the deltoid. Client reports pain is rather constant with deep, aching type pain. Client denies any associated numbness/tingling or weakness of the LUE. Anxiety: Client states 6 month history of increase in anxiety symptoms, despite three times daily use of cymbalta. Client reports she is often feeling anxious/worried. She notes near panic attack levels of anxiety at times. She reports difficulty sleeping, due to ruminating thoughts. Client would like to consider additional medication to help with anxiety. Review of Systems Constitutional: Negative for chills, diaphoresis, fever, malaise/fatigue and weight loss. HENT: Negative for congestion, ear discharge, ear pain, hearing loss, nosebleeds, sinus pain, sore throat and tinnitus. Eyes: Negative for blurred vision, double vision, photophobia and pain. Respiratory: Negative for cough, sputum production, shortness of breath, wheezing and stridor. Cardiovascular: Negative for chest pain, palpitations, claudication and leg swelling. Gastrointestinal: Negative for abdominal pain, blood in stool, constipation, diarrhea, heartburn, nausea and vomiting. Genitourinary: Negative for dysuria, frequency and urgency. Musculoskeletal: Positive for joint pain. Negative for back pain, falls, myalgias and neck pain. Skin: Negative for itching and rash. Painful masses to the left arm as noted. Neurological: Negative for dizziness, tingling, tremors, sensory change, speech change, focal weakness, seizures, loss of consciousness, weakness and headaches. Endo/Heme/Allergies: Does not bruise/bleed easily. Psychiatric/Behavioral: Negative for depression, hallucinations, substance abuse and suicidal ideas. The patient is nervous/anxious. PAST MEDICAL HISTORY Diagnosis Date Anxiety Arthritis Chicken pox Depressed mood Diverticulitis GERD (gastroesophageal reflux disease) Hyperlipidemia, acquired Hypertension Internal hemorrhoids Migraine Skin lesion of face ALLERGIES Allergen Reactions Doxepin Other: See Comments Iodinated Contrast * Hives Morphine Hives Current Outpatient Medications on File Prior to Visit Medication Sig oxyCODONE ER (OXYCONTIN) 15 mg 12 hr tablet Take 1 tablet by mouth every 8 hours for 30 days. Do not start before June 25, 2022. oxyCODONE-acetaminophen (PERCOCET 10) 10-325 mg tablet Take 1 tablet by mouth three times daily as needed for pain for up to 30 days. Do not start before June 22, 2022. DULoxetine (CYMBALTA) 30 mg capsule TAKE 3 CAPSULES BY MOUTH ONCE DAILY tiZANidine (ZANAFLEX) 4 mg tablet Take one pill by mouth 3 times a day as needed promethazine (PHENERGAN) 25 mg tablet Take 1 tablet by mouth every 6 hours as needed for nausea/vomiting. carvedilol (COREG) 12.5 mg tablet TAKE 1 TABLET BY MOUTH TWICE DAILY naloxone 4 mg/actuation nasal spray (NARCAN) Use 1 spray in one nostril as needed for overdose. May repeat every 2 to 3 min in alternating nostrils until medical assistance is available esomeprazole magnesium (NEXIUM) 40 mg packet Nexium Packet [address] for susp in packet sucralfate (CARAFATE) 1 gram tablet Take 1 g by mouth. pantoprazole [address] (PROTONIX) 40 mg tablet TAKE 1 TABLET BY MOUTH ONCE DAILY albuterol HFA (PROVENTIL HFA, VENTOLIN HFA) 90 mcg/actuation inhaler Inhale 1 Puff as instructed every 6 hours as needed. rizatriptan (MAXALT) 10 mg tablet Take 1 tablet by mouth as needed. May repeat a 2nd dose after 2 hours atorvastatin (LIPITOR) 10 mg tablet Take 1 tablet by mouth once daily. MULTIVITAMIN ORAL Take 1 tablet by mouth once daily. No current facility-administered medications on file prior to visit. Social History Tobacco Use Smoking status: Never Smokeless tobacco: Never Vaping Use Vaping Use: Never used Substance Use Topics Alcohol use: Yes Comment: Occasional Drug use: Not Currently OBJECTIVE: Vital Signs: BP 183/62 (BP Site: Right Arm, BP Position: Sitting, BP Cuff Size: Regular Adult) Pulse 78 Temp 37.1 C (98.7 F) (Oral) Resp 16 Ht 152.4 cm (5') Wt 68.8 kg (151 lb 9.6 oz) SpO2 99% BMI 29.61 kg/m Physical Exam Vitals reviewed. Constitutional: General: She is not in acute distress. Appearance: Normal appearance. She is not ill-appearing, toxic-appearing or diaphoretic. HENT: Head: Normocephalic and atraumatic. Eyes: Pupils: Pupils are equal, round, and reactive to light. Neck: Thyroid: No thyromegaly. Vascular: No JVD. Trachea: No tracheal deviation. Cardiovascular: Rate and Rhythm: Normal rate and regular rhythm. Heart sounds: Normal heart sounds. No murmur heard. No friction rub. No gallop. Pulmonary: Effort: Pulmonary effort is normal. No respiratory distress. Musculoskeletal: General: Tenderness present. No swelling, deformity or signs of injury. Normal range of motion. Cervical back: Normal range of motion and neck supple. Comments: There is noted severe restriction in ROM of the left shoulder. Client unable to lift the arm above the level of the chest. Narrowing of the AC joint noted with palpable nodularity. Lymphadenopathy: Cervical: No cervical adenopathy. Skin: General: Skin is warm and dry. Coloration: Skin is not jaundiced or pale. Findings: No bruising, erythema, lesion or rash. Comments: Palpable mass to the left antecubital region, inner aspect and the left bicep, inner aspect. These masses are poorly defined, with fluctuant/mobile feel. Unclear if the area to the antecubital represents supra/epitrochlear nodes. Neurological: Mental Status: She is alert and oriented to person, place, and time. Cranial Nerves: No cranial nerve deficit. Motor: No weakness. Gait: Gait is intact. Deep Tendon Reflexes: Reflexes are normal and symmetric. Psychiatric: Mood and Affect: Mood and affect normal. Behavior: Behavior normal. Thought Content: Thought content normal. Cognition and Memory: Memory normal. Judgment: Judgment normal. ASSESSMENT/PLAN: 1. Mass of left upper extremity - ICD9: 782.2, ICD10: R22.32 (primary diagnosis) Etiology remains unclear. Will begin further evaluation at this time. - US EXTREMITY MASS/FLUID COLLECTION LT 2. Acute pain of left shoulder - ICD9: 719.41, ICD10: M25.512 Obtain xray of the left shoulder, suspect symptoms related to advancing OA with concern for SA bursitis. - XR SHOULDER GENERAL 3V OR MORE AP/TRUE AP/OTHER LEFT 3. Generalized anxiety disorder - ICD9: 300.02, ICD10: F41.1 Will make addition of hyroxyzine for acute periods of anxiety and night time anxiety. Client advised to follow up with PCP should symptoms persist despite use of this medication or if she feels further alteration to medication regimen needed. - HYDROXYZINE HCL 10 MG TABLET Julián Clement, ARACELI.[facility] Medical Decision Making: Problems: Low: 2+ self-limited or minor problems Data: Unique test(s) ordered: 2 Assessment requiring an independent historian(s) Risk: Low: Low risk from testing/treatment Moderate: Drug management Medical Decision Making Level: 4 - Moderate I spent a total of 20 minutes on the date of the service which included [id number] patient care, completing clinical documentation, obtaining and/or reviewing separately obtained history, performing a medically appropriate examination, counseling and educating the patient/family/caregiver, and ordering medications, tests, or procedures. documented in this encounter [facility] 06-22-2022 History of Presen t illness Narrative Clau French is a 67 year old female who presents with Pain (In the left shoulder with lumps no injury to shoulder pains been going on for 2-3 months now. ) Patient says she has a little painful lump on her left bicep for the past 3 months. And she wants to get it checked out today The history is provided by the patient. No home care manager was used. PAST MEDICAL HISTORY Diagnosis Date Anxiety Arthritis Chicken pox Depressed mood Diverticulitis GERD (gastroesophageal reflux disease) Hyperlipidemia, acquired Hypertension Internal hemorrhoids Migraine Skin lesion of face ACTIVE PROBLEM LIST Migraine Hypertension Hyperlipidemia, Acquired Depressed Mood Gerd (Gastroesophageal Reflux Disease) Current Outpatient Medications Medication Sig Dispense Refill [START ON 06/25/2022] oxyCODONE ER (OXYCONTIN) 15 mg 12 hr tablet Take 1 tablet by mouth every 8 hours for 30 days. Do not start before June 25, 2022. 90 tablet 0 oxyCODONE-acetaminophen (PERCOCET 10) 10-325 mg tablet Take 1 tablet by mouth three times daily as needed for pain for up to 30 days. Do not start before June 22, 2022. 90 tablet 0 DULoxetine (CYMBALTA) 30 mg capsule TAKE 3 CAPSULES BY MOUTH ONCE DAILY 270 capsule 3 tiZANidine (ZANAFLEX) 4 mg tablet Take one pill by mouth 3 times a day as needed 90 tablet 0 promethazine (PHENERGAN) 25 mg tablet Take 1 tablet by mouth every 6 hours as needed for nausea/vomiting. 60 tablet 0 carvedilol (COREG) 12.5 mg tablet TAKE 1 TABLET BY MOUTH TWICE DAILY 60 tablet 4 naloxone 4 mg/actuation nasal spray (NARCAN) Use 1 spray in one nostril as needed for overdose. May repeat every 2 to 3 min in alternating nostrils until medical assistance is available 1 Each 0 esomeprazole magnesium (NEXIUM) 40 mg packet Nexium Packet [address] for susp in packet sucralfate (CARAFATE) 1 gram tablet Take 1 g [address] mouth[address]op[address] (PROTONIX) 40 mg tablet TAKE 1 TABLET BY MOUTH ONCE DAILY 30 tablet 4 albuterol HFA (PROVENTIL HFA, VENTOLIN HFA) 90 mcg/actuation inhaler Inhale 1 Puff as instructed every 6 hours as needed. 18 g 5 rizatriptan (MAXALT) 10 mg tablet Take 1 tablet by mouth as needed. May repeat a 2nd dose after 2 hours 12 tablet 1 atorvastatin (LIPITOR) 10 mg tablet Take 1 tablet by mouth once daily. 30 tablet 11 MULTIVITAMIN ORAL Take 1 tablet by mouth once daily. No current facility-administered medications for this visit. Social History Tobacco Use Smoking status: Never Smokeless tobacco: Never Vaping Use Vaping Use: Never used Substance Use Topics Alcohol use: Yes Comment: Occasional Drug use: Not Currently Alcohol Use: Yes (Occasional) Tobacco Use: Never FAMILY HISTORY Problem Relation Age of Onset Heart disease Father Coronary Artery Disease Father Hypertension Father Heart Attack Father Hypertension Mother Heart disease Mother Heart disease Brother Diabetes Brother Hypertension Brother Diabetes Sister Cancer Maternal Aunt Review of Systems Constitutional: Negative for chills and fever. Musculoskeletal: Negative for myalgias. Skin: Tender lump on left upper arm Neurological: Negative for focal weakness, weakness and headaches. BP 121/59 Pulse 68 Temp 97.5 Resp 18 Wt 145 lb 4.8 oz (65.9kg) SpO2 97% Physical Exam Vitals and nursing note reviewed. Constitutional: Appearance: Normal appearance. HENT: Right Ear: Tympanic membrane normal. Left Ear: Tympanic membrane normal. Mouth/Throat: Mouth: Mucous membranes are moist. Pharynx: Oropharynx is clear. Eyes: Extraocular Movements: Extraocular movements intact. Pupils: Pupils are equal, round, and reactive to light. Cardiovascular: Rate and Rhythm: Normal rate and regular rhythm. Pulses: Normal pulses. Heart sounds: Normal heart sounds. Pulmonary: Effort: Pulmonary effort is normal. Breath sounds: Normal breath sounds. Musculoskeletal: General: Swelling (Patient has a 6 cm nodule under the skin over the left biceps. It is firm and appears to be fixed to the muscle. Inferior to it in the antecubital fossa is a 2 cm boggy mass that is also minimally tender. No erythema or ecchymosis) present. No tenderness or signs of injury. Normal range of motion. Cervical back: Normal range of motion. Skin: General: Skin is warm and dry. Capillary Refill: Capillary refill takes less than 2 seconds. Neurological: Mental Status: She is alert. ASSESSMENT/PLAN: 1. Arm mass, left - ICD9: 782.2, ICD10: R22.32 Not certain as the type of mass. Patient will likely need a biopsy of the area. Recommend she follow-up with her primary care physician soon as possible Nanci Schwarz MD documented in this encounter [facility] 06-20-2022 Miscellaneous Notes The following approved medication requests have been transmitted electronically. Requested Prescriptions Signed Prescriptions Disp Refills oxyCODONE ER (OXYCONTIN) 15 mg 12 hr tablet 90 tablet 0 Sig: Take 1 tablet by mouth every 8 hours for 30 days. Do not start before June 25, 2022. Authorizing Provider: FAIZA ARAGNO oxyCODONE-acetaminophen (PERCOCET 10) 10-325 mg tablet 90 tablet 0 Sig: Take 1 tablet by mouth three times daily as needed for pain for up to 30 days. Do not start before June 22, 2022. Authorizing Provider: FAIZA ARAGON APRN.MACHINE [employer]CH [employer]ER Can you resend the percocet and oxycontin RX. They were not transmitted to pharmacy. Pavithra Miles RN June 20, 2022 9:21 AM documented in this encounter [facility] 06-18-2022 Miscellaneous Notes The following approved medication requests have been transmitted electronically. Requested Prescriptions Signed Prescriptions Disp Refills oxyCODONE-acetaminophen (PERCOCET 10) 10-325 mg tablet 90 tablet 0 Sig: Take 1 tablet by mouth three times daily as needed for pain for up to 30 days. Do not start before June 22, 2022. Authorizing Provider: FAIZA ARAGON oxyCODONE ER (OXYCONTIN) 15 mg 12 hr tablet 90 tablet 0 Sig: Take 1 tablet by mouth every 8 hours for 30 days. Do not start before June 25, 2022. Authorizing Provider: FAIZA ARAGON APRN.CNS Patient phones requesting refills as follows: Requested Prescriptions Pending Prescriptions Disp Refills oxyCODONE-acetaminophen (PERCOCET 10) 10-325 mg tablet 90 tablet 0 Sig: Take 1 tablet by mouth three times daily as needed for pain for up to 30 days. oxyCODONE ER (OXYCONTIN) 15 mg 12 hr tablet 90 tablet 0 Sig: Take 1 tablet by mouth every 8 hours for 30 days. Please review and advise. Pavithra Miles RN documented in this encounter [facility] 05-30-2022 Miscellaneous Notes Pharmacy faxes requesting refill: Requested Prescriptions Pending Prescriptions Disp Refills DULoxetine (CYMBALTA) 30 mg capsule [Pharmacy Med Name: duloxetine 30 mg capsule,delayed release] 270 capsule 3 Sig: TAKE 3 CAPSULES BY MOUTH ONCE DAILY Date of last visit:04/18/2022 Phone #: [phone] (home) [phone] (work) [phone] (cell) The patients preferred pharmacy has been captured for this encounter? yes documented in this encounter [facility] 05-23-2022 Instructions Faiza Aragon APRN.MACHINE [employer]CH [employer]KER - 05/23/2022 2:59 PM EDT Continue Percocet 10/325 TID and Oxycontin 15 mg every 8 hours OARRS reviewed and consistent. UDS on 11/20/21 inconsistent. Addressed at previous office visit Continue diet changes for OIC. Keep active as possibe Follow-up in 2-3 months in office for [facility] right shoulder pain documented in this encounter [facility] 05-22-2022 History of Presen t illness Narrative Patient was last seen by me on 02/22/2022 for shoulder pain. [facility] Last procedure: 03/01/2022 right suprascapular nerve block Plan of care: 1) Continue Percocet 10/325 TID and Oxycontin 15 mg every 8 hours OARRS reviewed and consistent. UDS on 11/20/21 inconsistent. Addressed at previous office visit 2) Order UDS. 3) Submit C9 for UDS 4) Continue diet changes for OIC. 5) Keep active as possibe 6) Schedule right suprascapular block 7) Follow-up in 2-3 months in office for [facility] right shoulder pain Pain level:9/10 States had good relief from last injection Denies any ED visits or hospitalizations since last office visit Reports pain worse with activities of daily living, weather changes Reports pain better with ice, medications Describes pain in right shoulder as constant sharp sensation that radiates to fingers. States left shoulder hurting now due to compensating for right side States has numbness and tingling in both hands and fingers worse on right Denies falls Denies any issues with bowels or bladder. History of diverticulitis and IBS Denies nausea or vomting Denies dizziness States has headaches on occasion TENS Use: 2 times daily Benefit: moderate to minimal Physical assessment: Alert and oriented x3 Skin pink, warm, and dry. No conversational shortness of breath appreciated. Wearing face mask. Mood pleasant and cooperative. Able to ascend and descend from sitting position without difficulty Inspection of the right shoulder is largely unremarkable. There are no scars, masses or abnormalities noted. There is no effusion noted. Range of motion in the extremity/joint is mildly reduced. There is mild tenderness upon palpation of the anterior and posterior shoulder, AC joint, scapula and clavicle. Positive Ervin sign on right. Positive can test on right. Sensation is intact to the extremity. There is no hypo/hypersensitivity noted. Skin is warm and dry.There is peripheral edema noted to her melinda hands. Radial pulses present melinda. There are no skin changes or atrophy noted. Left shoulder range of motion with mild decreased in motion. Negative Hawkin sign on left. DOI: 10/15/2000 Claim#: [id number] Allowed Dx: S46.911A, S53.401A, S53.491A, M75.51, S53.491A, M75.101, M77.11, M12.531, M75.21, S53.431A, F45.42, F32.9 MCO: Medical Administrators documented in this encounter [facility] 04-18-2022 History of Presen t illness Narrative Clau Rajput is a 66 year old female here today acutely because of having: abdominal pain Patient states she started ago with left lower quadrant pain and some tenderness on the right side. Has a history of frequent diverticulitis and this feels similar to what she has had before. She goes from being constipated to diarrhea, but denies any black or bloody stools. Does avoid nuts and foods with seeds in them. Review of Systems Constitutional: Negative for chills, fatigue and fever. Respiratory: Negative for cough, chest tightness and shortness of breath. Cardiovascular: Negative for chest pain and palpitations. Gastrointestinal: Positive for abdominal pain (lower abdominal pain), constipation and diarrhea. Negative for abdominal distention, blood in stool, nausea and vomiting. Neurological: Negative for dizziness and headaches. BP 115/75 (BP Site: Left Arm, BP Position: Sitting, BP Cuff Size: Regular Adult) Temp 36.8 C (98.2 F) (Oral) Ht 152.4 cm (5') Wt 69.7 kg (153 lb 9.6 oz) BMI 30.00 kg/m BMI 30.00 kg/(m^2) ALLERGIES Allergen Reactions Doxepin Other: See Comments Iodinated Contrast * Hives Morphine Hives Physical Exam Vitals and nursing note reviewed. Constitutional: General: She is not in acute distress. Appearance: Normal appearance. She is not diaphoretic. Cardiovascular: Rate and Rhythm: Normal rate and regular rhythm. Pulses: Normal pulses. Heart sounds: Normal heart sounds. No murmur heard. No friction rub. No gallop. Pulmonary: Effort: Pulmonary effort is normal. No respiratory distress. Breath sounds: Normal breath sounds. No stridor. No wheezing, rhonchi or rales. Abdominal: General: Bowel sounds are normal. Palpations: Abdomen is soft. Tenderness: There is abdominal tenderness (tenderness with palpation over LLQ and slight pain noted in RLQ.). Skin: General: Skin is warm and dry. Neurological: Mental Status: She is alert and oriented to person, place, and time. ASSESSMENT/PLAN: 1. Diverticulitis - ICD9: 562.11, ICD10: K57.92 - AMOXICILLIN 875 MG-POTASSIUM CLAVULANATE 125 MG TABLET - Go to ER if symptoms increase or any new symptoms. Lazaro Mendez CNP Follow Up: Return if symptoms worsen or fail to improve. Voice recognition software utilized. Minor grammatical and/or spelling errors may exist. Portions of this note have been entered by ancillary staff. I have reviewed and when necessary edited, so that they are an adequate record of my encounter with this patient. documented in this encounter [facility] 04-17-2022 Miscellaneous Notes LMOM for patient to call the office back. She will need to reschedule or use the walk in clinic tomorrow, Dr. Pedro has no openings the rest of the day. Ivonen Whitney MA Patient called back. She would like for her to call her back. She is having phones issues. LMOM for patient to call the office back or login for her appointment today with Dr. Pedro at 12:20. Ivonne Whitney MA documented in this encounter [facility] 04-16-2022 Miscellaneous Notes Patient states she is using once daily Please let the pt know that she stated in november that she no longer was taking the medication. Thank you Lazaro Mendez APRN.MACHINE TRACER Patient called requesting the following refill. Pending Prescriptions Disp Refills CARVEDILOL 12.5 MG TABLET 60 tablet 4 Sig: TAKE 1 TABLET BY MOUTH TWICE DAILY FABIAN: Yes Patient last appointment: 03/22/2022 Patient Phone numbers: [phone] (home) [phone] (work) Request is for script(s) to be escript to pharmacy. [place], [place] Melissa Casper MA documented in this encounter [facility] 04-09-2022 History of Presen t illness Narrative Clau Rajput is a 66 year old female here today acutely because of having: Cough, Breathing Problem, and Headache URI: Patient has symptoms of nasal congestion, runny nose, cough and post nasal congestion. Symptoms on going for 8 days. Patient has tried no OTC medication . Exposed to anyone with similar illness, No. Patient is not a smoker. Denies fever, SOB, chest pain, dizziness, nausea, vomiting, diarrhea Review of Systems Constitutional: Negative for chills, fatigue and fever. HENT: Positive for congestion, postnasal drip, rhinorrhea and sinus pain. Negative for ear pain and sore throat. Respiratory: Positive for cough. Negative for chest tightness, shortness of breath and wheezing. Cardiovascular: Negative for chest pain, palpitations and leg swelling. Skin: Negative for color change and rash. Neurological: Negative for dizziness and headaches. BP 127/73 (BP Site: Left Arm, BP Position: Sitting, BP Cuff Size: Regular Adult) Pulse 73 Temp 36.8 C (98.2 F) (Oral) Resp 14 Ht 152.4 cm (5') Wt 67.1 kg (148 lb) SpO2 97% BMI 28.90 kg/m BMI 28.90 kg/(m^2) ALLERGIES Allergen Reactions Doxepin Other: See Comments Iodinated Contrast * Hives Morphine Hives Physical Exam Vitals and nursing note reviewed. Constitutional: General: She is not in acute distress. Appearance: Normal appearance. She is not diaphoretic. HENT: Right Ear: Tympanic membrane and external ear normal. Left Ear: Tympanic membrane and external ear normal. Nose: Congestion and rhinorrhea present. Mouth/Throat: Mouth: Mucous membranes are moist. Pharynx: No posterior oropharyngeal erythema. Comments: Yellow post nasal drainage Neck: Vascular: No carotid bruit. Cardiovascular: Rate and Rhythm: Normal rate and regular rhythm. Pulses: Normal pulses. Heart sounds: Normal heart sounds. No murmur heard. No friction rub. No gallop. Pulmonary: Effort: Pulmonary effort is normal. No respiratory distress. Breath sounds: Normal breath sounds. No stridor. No wheezing, rhonchi or rales. Skin: General: Skin is warm and dry. Coloration: Skin is not pale. Findings: No erythema. Neurological: Mental Status: She is alert and oriented to person, place, and time. ASSESSMENT/PLAN: 1. Bacterial sinusitis - ICD9: 473.9, 041.9, ICD10: J32.9, B96.89 (primary diagnosis) - Will begin treatment with Augmentin 875 mg PO BID for 10 days - Supportive care with plenty of fluids, rest, and analgesia prn. - AMOXICILLIN 875 MG-POTASSIUM CLAVULANATE 125 MG TABLET - CODEINE 10 MG-GUAIFENESIN 100 MG/5 ML ORAL LIQUID 2. Cough - ICD9: 786.2, ICD10: R05.9 - CODEINE 10 MG-GUAIFENESIN 100 MG/5 ML ORAL LIQUID Lazaro Mendez CNP Follow Up: Return if symptoms worsen or fail to improve. Voice recognition software utilized. Minor grammatical and/or spelling errors may exist. Portions of this note have been entered by ancillary staff. I have reviewed and when necessary edited, so that they are an adequate record of my encounter with this patient. Medical Decision Making: Problems: Low: Acute, uncomplicated illness or injury Risk: Moderate: Drug management Medical Decision Making Level: 3 - Low documented in this encounter [facility] 03-27-2022 Miscellaneous Notes The following approved medication requests have been transmitted electronically. Signed Prescriptions Disp Refills oxyCODONE ER (OXYCONTIN) 15 mg 12 hr tablet 90 tablet 0 Sig: Take 1 tablet by mouth every 8 hours for 30 days. FRANKY Class: C-II FABIAN: No Authorizing Provider: FAIZA ARAGON APRN.MACHINE BUNCH MAKER Patient phones requesting refills as follows: Pending Prescriptions Disp Refills OXYCODONE ER 15 MG TABLET,CRUSH RESISTANT,EXTENDED RELEASE 12 HR 90 tablet 0 Sig: Take 1 tablet by mouth every 8 hours for 30 days. FRANKY Class: C-II FABIAN: No Please review and advise. Shea Tenorio RN documented in this encounter [facility] 02-23-2022 Miscellaneous Notes Correct order faxed to [phone] today. Confirmation was received. I did talk with Laverne. Laverne called back checking on the new order. She states patient is scheduled in 10 minutes. Call was transferred to Ne at the office for further assistance. Char Ellison Laverne called back and states they need this order as patient is due in at 1:40 for her appointment. Can you please do a new order and fax it to them. Laverne [facility] Mammography calls. Patient coming in for mammogram today. States order should be for bilateral diagnostic for right breast mass. Can new orders be placed. Fax number [phone] Message in secure chat to [place] that this was sent high. Laverne [facility] Mammography calls. Patient coming in for mammogram today. States order should be for bilateral diagnostic for right breast mass. Can new orders be placed. Fax number [phone] documented in this encounter [facility] documented in this encounter [facility] Reason for referral (narrative)* Diagnostic Procedure Only (Routine) - Pending Review Specialty Diagnoses / Procedures Referred By Isaiah t Referred To Contact [facility] Diagnoses Breast lump on right side at 9 o'clock position Procedures [facility] RT DIAGNOSTIC MAMMOGRAPHY COMPUTER-AIDED DETCJ Lazaro Travis APRN.MACHINE TRACER [address] [place] [address] [facility] [address] [place] [address] Referral ID Status Reason Start Date Expiration Date Visits Requested Visits Authorized [id number] Pending Review Auto-Generat ed Referral 02/15/2022 03/17/2023 1 1 [facility] Miscellaneous Notes* Telephone Encounter - Ophelia Collier - 02/15/2022 6:45 PM EDT Patient said she would call [facility] to schedule her diagnostic mammogram. I faxed the order to [facility] History of Present illness Narrative* Lazaro Mendez APRN.ARTUR - 02/15/2022 6:40 PM EDT Clau Rajput is a 66 year old female here today acutely because of having: Headache Headache: 2 weeks ago the patient started having some nasal congestion, drainage, postnasal drainage, then 2 days ago she started having a frontal headache. Denies any fever, chills, nausea, diarrhea, body aches or sore throat. Has not taken anything [id number] for her symptoms. Breast lump: Patient states she noticed a lump on the right side of her right breast at the 9 o'clock position. States she found it several days ago just before having her mammo done for the year. They advised her if she did have a lump they would do a different type of screening if it was felt by the provider.She decided to follow-up in the office so that way the imaging was not repeated. Denies any pain with palpation over the area. Reports it feels like a small circular pea. Review of Systems Constitutional: Negative for chills, fatigue and fever. HENT: Positive for congestion, postnasal drip, rhinorrhea and sinus pain. Negative for ear pain andsore throat. Respiratory: Negative for cough, chest tightness, shortness of breath and wheezing. Cardiovascular: Negative for chest pain, palpitations and leg swelling. Gastrointestinal: Negative for abdominal pain, diarrhea, nausea and vomiting. Skin: Negative for color change and rash. Lump in right breast Neurological: Negative for dizziness and headaches. BP 142/80 (BP Site: Right Arm, BP Position: Sitting, BP Cuff Size: Regular Adult) Pulse 87 Ht 152.4 cm (5') Wt 67.1 kg (148 lb) SpO2 97% BMI 28.90 kg/m BMI 28.90 kg/(m^2) ALLERGIES Allergen Reactions Doxepin Other: See Comments Iodinated Contrast * Hives Morphine Hives Physical Exam Vitals and nursing note reviewed. Constitutional: General: She is not in acute distress. Appearance: Normal appearance. She is not diaphoretic. HENT: Right Ear: Tympanic membrane, ear canal and external ear normal. Left Ear: Tympanic membrane, ear canal and external ear normal. Nose: Congestion and rhinorrhea present. Right Sinus: Maxillary sinus tenderness and frontal sinus tenderness present. Left Sinus: Maxillary sinus tenderness and frontal sinus tenderness present. Mouth/Throat: Mouth: Mucous membranes are moist. Pharynx: No posterior oropharyngeal erythema. Comments: White post nasal drainage Neck: Vascular: No carotid bruit. Cardiovascular: Rate and Rhythm: Normal rate and regular rhythm. Pulses: Normal pulses. Heart sounds: Normal heart sounds. No murmur heard. No friction rub. No gallop. Pulmonary: Effort: Pulmonary effort is normal. No respiratory distress. Breath sounds: Normal breath sounds. No stridor. No wheezing, rhonchi or rales. Skin: General: Skin is warm and dry. Comments: Lump noted in the right breast at the 9 o'clock position to the nipple. It is a small hard circular shape. Neurological: Mental Status: She is alert and oriented to person, place, and time. Psychiatric: Mood and Affect: Mood normal. Behavior: Behavior normal. Thought Content: Thought content normal. Judgment: Judgment normal. ASSESSMENT/PLAN: 1. Bacterial sinusitis - ICD9: 473.9, 041.9, ICD10: J32.9, B96.89 (primary diagnosis) - Will begin treatment with Augmentin 875 mg PO BID for 10 days - Supportive care with plenty of fluids, rest, and analgesia prn. - AMOXICILLIN 875 MG-POTASSIUM CLAVULANATE 125 MG TABLET 2. Breast lump on right side at 9 o'clock position - ICD9: 611.72, ICD10: N63.15 - [facility]NO[facility] RT Lazaro Mendez CNP Follow Up: Return if symptoms worsen or fail to improve. Voice recognition software utilized. Minor grammatical and/or spelling errors may exist. Portions of this note have been entered by ancillary staff. I have reviewed and when necessary edited, so that they are an adequate record of my encounter with this patient. Medical Decision Making: Problems: Moderate: New problem with uncertain prognosis Risk: Moderate: Drug management Medical Decision Making Level: 4 - Moderate [facility] Miscellaneous Notes* Telephone Encounter - Mel Burkett MA - 02/06/2022 2:23 PM EDT Left A message for patient to return call Mel Burkett MA * Telephone Encounter - Lazaro Mendez APRN.CNP - 02/05/2022 5:04 PM EDT Sent in trazodone into the pharmacy Lazaro Mendez APRN.CNP * Telephone Encounter - Adriana Romo MA - 02/05/2022 4:46 PM EDT Patient was informed of message and states she would like to try a different type of medication. [facility] * Telephone Encounter - Aide Kitchen MA - 02/02/2022 2:54 PM EDT Called and left a message for Clau to call the office back. Phone number was provided. ig * Telephone Encounter - Lazaro Mendez APRN.CNP - 02/02/2022 1:41 PM EDT Please let the patient know that Medicare declined prescription for Ambien. I declined it due to age of the patient. We can either try a different medication like they want us to or he can buy it at [facility] with good Rx card for $14. Let me know what she decides. Thank you Lazaro Mendez APRN.MACHINE TRACER * Telephone Encounter - Lennie Pittman - 02/02/2022 9:31 AM EDT Andre, ilan prior auth has denied for zolpidem; We denied this request under Medicare Part D because: The [place] [employer] identifies the use of this medication as potentially inappropriate in older adults, meaning it is best avoided, prescribed at reduced dosage, or used with caution or carefullymonitored. Has the patient tried the non-HRM (non-High Risk Medication) alternative drug doxepin (3mg or 6 mg)? Does the patient have a contraindication to the non-HRM (non-High Risk Medication) alternative drug doxepin (3 mg or 6 mg)? This can be appealed. * Telephone Encounter - Lennie Pittman - 02/01/2022 5:39 PM EDT Received an email from [facility] that auth needs completed. Request completed and is pending. [facility] Instructions* Patient Instructions* Ivonne Weinstein APRN.CNP - 02/03/2022 2:09 PM EDT Flu test completed in [facility] - Negative -Drink plenty of non-caffeinated fluids! -Coricidin HBP - take as directed -For nasal congestion/ear fullness: Use a nasal saline rinse (netti pot/squeeze bottle) couple times a day. -For sore throat/cough: gargle with salt water, hot tea and honey, cool mist vaporizer, and cough drops -Prop yourself up with additional pillows at night -Vicks Vapor rub to chest at night -Any difficulty breathing or chest pain go to Emergency Department [facility] History of Present illness Narrative* Ivonne Weinstein APRN.CNP - 02/03/2022 2:06 PM EDT February 03, 2022 Subjective Chief Complaint: Ear Pain (melinda ear pa x 2 days), Sore Throat (x 2days ibuprofen last dose today), and Headache HPI: Clau Rajput is a 66 year old female who presents today for 2 day history of bilateral ear pain, sore throat, fever, and headache. States she has generalized body aches. Reports fever of 102F yesterday. Has history of seasonal allergies. Reports mild non-productive cough. Denies any chest pain, shortness of breath, abdominal pain. States she is here with her son whom is also sick. Burciaga s taken Ibuprofen. Eating and drinking as norm. PAST MEDICAL HISTORY Diagnosis Date Anxiety Arthritis Chicken pox Depressed mood Diverticulitis GERD (gastroesophageal reflux disease) Hyperlipidemia, acquired Hypertension Internal hemorrhoids Migraine Skin lesion of face PAST SURGICAL HISTORY Procedure Laterality Date SECTION HX x2 CHOLECYSTECTOMY VAGINAL HYSTERECTOMY UTERUS 250 GM/< XR CERVICAL FUSION OR FAMILY HISTORY Problem Relation Age of Onset Hypertension Mother Heart disease Mother Hypertension Father Diabetes Sister Heart disease Brother Diabetes Brother Hypertension Brother Cancer Maternal Aunt Social History Tobacco Use Smoking status: Never Smoker Smokeless tobacco: Never Used Vaping Use Vaping Use: Never used Substance Use Topics Alcohol use: Yes Comment: Occasional Drug use: Not Currently ALLERGIES Allergen Reactions Iodinated Contrast * Hives Morphine Hives Immunization History Administered Date(s) Administered Influenza Seasonal Trivalent Inj Pres Free 10/08/2018 Pneumovax 10/08/2018 Tdap (Age 7+) 05/28/2019 Current Medications: esomeprazole magnesium (NEXIUM PACKET) 40 mg packet Nexium Packet [address] for susp in packet sucralfate (CARAFATE) 1 gram tablet Take 1 g by mouth. pantoprazole DR (PROTONIX) 40 mg tablet TAKE 1 TABLET BY MOUTH ONCE DAILY methocarbamol (ROBAXIN) 750 mg tablet TAKE 1 TABLET BY MOUTH THREE TIMES DAILY NEEDED (stop zanaflex) zolpidem (AMBIEN) 10 mg Take 1 tablet by mouth at bedtime as needed for up to 30 days. For sleep. albuterol HFA (PROVENTIL HFA, VENTOLIN HFA) 90 mcg/actuation inhaler Inhale 1 Puff as instructed every 6 hours as needed. rizatriptan (MAXALT) 10 mg tablet Take 1 tablet by mouth as needed. May repeat a 2nd dose after 2 hours atorvastatin (LIPITOR) 10 mg tablet Take 1 tablet by mouth once daily. DULoxetine (CYMBALTA) 30 mg capsule Take 3 capsules by mouth once daily. tiZANidine (ZANAFLEX) 4 mg tablet Take one pill by mouth 3 times a day as needed oxyCODONE-acetaminophen (PERCOCET 10) 10-325 mg tablet THREE TIMES DAILY oxyCODONE ER (OXYCONTIN) 15 mg 12 hr tablet THREE TIMES DAILY MULTIVITAMIN ORAL Take 1 tablet by mouth once daily. Review of Systems Constitutional: Positive for fever and malaise/fatigue. Negative for chills. HENT: Positive for ear pain (bilaterally) and sore throat. Negative for congestion. Eyes: Negative. Respiratory: Positive for cough. Negative for hemoptysis, sputum production, shortness of breath and wheezing. Cardiovascular: Negative. Gastrointestinal: Negative. Genitourinary: Negative. Skin: Negative. Neurological: Positive for headaches. Negative for dizziness, tingling, tremors, sensory change, speech change, focal weakness, seizures, loss of consciousness and weakness. Objective BP 134/74 Pulse 97 Temp 98.7 Resp 20 Wt 153 lb (69.4kg) SpO2 97% Physical Exam Vitals reviewed. Constitutional: General: She is not in acute distress. Appearance: Normal appearance. She is not ill-appearing, toxic-appearing or diaphoretic. HENT: Head: Normocephalic and atraumatic. Right Ear: Tympanic membrane, ear canal and external ear normal. There is no impacted cerumen. Left Ear: Tympanic membrane, ear canal and external ear normal. There is no impacted cerumen. Nose: Right Turbinates: Swollen. Left Turbinates: Swollen. Comments: Dried blood in bilateral nares Mouth/Throat: Mouth: Mucous membranes are moist. Pharynx: Oropharynx is clear. No oropharyngeal exudate or posterior oropharyngeal erythema. Eyes: General: Right eye: No discharge. Left eye: No discharge. Extraocular Movements: Extraocular movements intact. Conjunctiva/sclera: Conjunctivae normal. Pupils: Pupils are equal, round, and reactive to light. Cardiovascular: Rate and Rhythm: Normal rate and regular rhythm. Heart sounds: Normal heart sounds. No murmur heard. No friction rub. No gallop. Pulmonary: Effort: Pulmonary effort is normal. No respiratory distress. Breath sounds: Normal breath sounds. No stridor. No wheezing, rhonchi or rales. Chest: Chest wall: No tenderness. Musculoskeletal: Cervical back: Neck supple. Skin: General: Skin is warm and dry. Capillary Refill: Capillary refill takes less than 2 seconds. Neurological: Mental Status: She is alert and oriented to person, place, and time. Psychiatric: Mood and Affect: Mood normal. Behavior: Behavior normal. Thought Content: Thought content normal. Judgment: Judgment normal. ASSESSMENT/PLAN: 1. URI with cough and congestion - ICD9: 465.9, ICD10: J06.9 (primary diagnosis) - Discussed viral etiology and rationale for treatment. - Symptomatic treatment with prn analgesia - Supportive care with fluids and rest - The patient may also use OTC cough and cold meds as needed, warm salt water gargles, throat lozenges and/or OTC throat spray as needed and nasal saline gtts and suction prn. - Follow up in 3-5 days if symptoms persist or sooner if worsening of symptoms -FLU B/O Ivonne Weinstein APRN.CNP [facility] Miscellaneous Notes* Telephone Encounter - Lazaro Mendez APRN.CNP - 02/01/2022 10:26 AM EDT Medication was discontinued Lazaro Mendez APRN.ARTUR * Telephone Encounter - Syed Stanley MA - 02/01/2022 6:25 AM EDT Pharmacy faxes requesting refill: Pending Prescriptions Disp Refills CARVEDILOL 12.5 MG TABLET 60 tablet 4 Sig: TAKE 1 TABLET BY MOUTH TWICE DAILY FABIAN: Yes Date of last visit:12/30/2021 Phone #: [phone] (home) [phone] (work) [phone] (cell) The patients preferred pharmacy has been captured for this encounter? yes documented in [facility] encounter[facility] History of Present illness Narrative* Nita Pino MD - 01/25/2022 3:30 PM EDT H & P Date: January 25, 2022 Chief Complaint: Patient presents with: Follow Up: EGD done 01/10/22 No pain or bleeding here to review testing results. HPI: Clau Rajput is a 66 year old female. Review of Systems Constitutional: Negative for appetite change, chills, fatigue, fever and unexpected weight change. HENT: Negative. Respiratory: Negative for cough, chest tightness, shortness of breath and wheezing. Cardiovascular: Negative for chest pain, palpitations and leg swelling. Gastrointestinal: Negative for abdominal pain, anal bleeding, blood in stool, constipation, diarrhea, nausea, rectal pain and vomiting. Stable heartburn Genitourinary: Negative. Musculoskeletal: Negative. Skin: Negative. Neurological: Negative. Psychiatric/Behavioral: Negative. PAST MEDICAL HISTORY Diagnosis Date Anxiety Arthritis Chicken pox Depressed mood Diverticulitis GERD (gastroesophageal reflux disease) Hyperlipidemia, acquired Hypertension Internal hemorrhoids Migraine Skin lesion of face PAST SURGICAL HISTORY Procedure Laterality Date SECTION HX x2 CHOLECYSTECTOMY VAGINAL HYSTERECTOMY UTERUS 250 GM/< XR CERVICAL FUSION OR FAMILY HISTORY Problem Relation Age of Onset Hypertension Mother Heart disease Mother Hypertension Father Diabetes Sister Heart disease Brother Diabetes Brother Hypertension Brother Cancer Maternal Aunt Social History Tobacco Use Smoking status: Never Smoker Smokeless tobacco: Never Used Vaping Use Vaping Use: Never used Substance Use Topics Alcohol use: Yes Comment: Occasional Drug use: Not Currently Current Outpatient Medications Medication Sig pantoprazole DR (PROTONIX) 40 mg tablet TAKE 1 TABLET BY MOUTH ONCE DAILY methocarbamol (ROBAXIN) 750 mg tablet TAKE 1 TABLET BY MOUTH THREE TIMES DAILY NEEDED (stop zanaflex) albuterol HFA (PROVENTIL HFA, VENTOLIN HFA) 90 mcg/actuation inhaler Inhale 1 Puff as instructed every 6 hours as needed. rizatriptan (MAXALT) 10 mg tablet Take 1 tablet by mouth as needed. May repeat a 2nd dose after 2 hours atorvastatin (LIPITOR) 10 mg tablet Take 1 tablet by mouth once daily. DULoxetine (CYMBALTA) 30 mg capsule Take 3 capsules by mouth once daily. tiZANidine (ZANAFLEX) 4 mg tablet Take one pill by mouth 3 times a day as needed oxyCODONE-acetaminophen (PERCOCET 10) 10-325 mg tablet THREE TIMES DAILY oxyCODONE ER (OXYCONTIN) 15 mg 12 hr tablet THREE TIMES DAILY MULTIVITAMIN ORAL Take 1 tablet by mouth once daily. zolpidem (AMBIEN) 10 mg Take 1 tablet by mouth at bedtime as needed for up to 30 days. For sleep. No current facility-administered medications for this visit. ALLERGIES Allergen Reactions Iodinated Contrast * Hives Morphine Hives Ht 152.4 cm (5') Wt 69.4 kg (153 lb) BMI 29.88 kg/m Physical Exam Constitutional: General: She is not in acute distress. Eyes: Comments: Sclera clear Extra occular muscles intact Neck: Trachea: No tracheal deviation. Comments: No thyroid masses No adenopathy Non tender Cardiovascular: Rate and Rhythm: Regular rhythm. Heart sounds: Normal heart sounds. No murmur heard. Comments: Non tachycardia Pulmonary: Breath sounds: Normal breath sounds. No wheezing or rales. Chest: Chest wall: No tenderness. Abdominal: General: There is no distension. Palpations: There is no mass. Tenderness: There is no abdominal tenderness. Hernia: No hernia is present. Genitourinary: Comments: Deferred rectal No inguinal adenopathy masses, hernias, or tenderness Musculoskeletal: General: No tenderness or deformity. Comments: No obvious masses Lymphadenopathy: Cervical: No cervical adenopathy. Skin: Comments: No unusual color changes or irritation or concerning lesion changes Neurological: Mental Status: She is alert and oriented to person, place, and time. Sensory: No sensory deficit. Comments: No obvious motor or sensory deficits. Psychiatric: Comments: No unusual behavior ASSESSMENT/PLAN:ASSESSMENT/PLAN: 1. Gastroesophageal reflux disease without esophagitis - ICD9: 530.81, ICD10: K21.9 (primary diagnosis) recommendations reviewed under control we will see if she can wean herself off Protonix in 3 months. 2. Multiple gastric ulcers - ICD9: 531.90, ICD10: K25.9 Pathology and recommendations reviewed continue Protonix 3 months then try to wean off. Check stomach as needed if she has more trouble 3. Gastritis and gastroduodenitis - ICD9: 535.50, ICD10: K29.70, K29.90 Pathology recommendations reviewed we will check stomach as needed. Due for colonoscopy in about 2 years MD Nita Forde MD documented in this encounterGrant Hospital04-04-2022 History of Present illness Narrative* Nita Pino MD - 01/01/2022 2:42 PM EDT H & P Date: January 01, 2022 Chief Complaint: Patient presents with: Consult: Discuss an EGD, last one many years ago Diverticulosis again discussed with patient under control for the most part just chronic cramping no acute findings today recommendations reviewed diet sheet given. Due for colonoscopy in about 2 andhalf years. 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 Her biggest concern is she is having some more epigastric pain and burning when she eats feels like food gets stuck. Reflux ulcer recommendations reviewed continue Protonix will check diagnostic upper scope because of worsening symptoms. HPI: Clau Rajput is a 66 year old female. Review of Systems Constitutional: Negative for appetite change, chills, fatigue, fever and unexpected weight change. HENT: Negative. Respiratory: Negative for cough, chest tightness, shortness of breath and wheezing. Cardiovascular: Negative for chest pain, palpitations and leg swelling. Gastrointestinal: Negative for abdominal pain, anal bleeding, blood in stool, constipation, diarrhea, nausea, rectal pain and vomiting. Some increased heartburn epigastric discomfort. Little bit of trouble swallowing Genitourinary: Negative. Musculoskeletal: Negative. Skin: Negative. Neurological: Negative. Psychiatric/Behavioral: Negative. PAST MEDICAL HISTORY Diagnosis Date Anxiety Arthritis Chicken pox Depressed mood Diverticulitis GERD (gastroesophageal reflux disease) Hyperlipidemia, acquired Hypertension Internal hemorrhoids Migraine Skin lesion of face PAST SURGICAL HISTORY Procedure Laterality Date SECTION HX x2 CHOLECYSTECTOMY VAGINAL HYSTERECTOMY UTERUS 250 GM/< XR CERVICAL FUSION OR FAMILY HISTORY Problem Relation Age of Onset Hypertension Mother Heart disease Mother Hypertension Father Diabetes Sister Heart disease Brother Diabetes Brother Hypertension Brother Cancer Maternal Aunt Social History Tobacco Use Smoking status: Never Smoker Smokeless tobacco: Never Used Vaping Use Vaping Use: Never used Substance Use Topics Alcohol use: Yes Comment: Occasional Drug use: Not Currently Current Outpatient Medications Medication Sig pantoprazole DR (PROTONIX) 40 mg tablet TAKE 1 TABLET BY MOUTH ONCE DAILY methocarbamol (ROBAXIN) 750 mg tablet TAKE 1 TABLET BY MOUTH THREE TIMES DAILY NEEDED (stop zanaflex) zolpidem (AMBIEN) 10 mg Take 1 tablet by mouth at bedtime as needed for up to 30 days. For sleep. albuterol HFA (PROVENTIL HFA, VENTOLIN HFA) 90 mcg/actuation inhaler Inhale 1 Puff as instructed every 6 hours as needed. rizatriptan (MAXALT) 10 mg tablet Take 1 tablet by mouth as needed. May repeat a 2nd dose after 2 hours atorvastatin (LIPITOR) 10 mg tablet Take 1 tablet by mouth once daily. DULoxetine (CYMBALTA) 30 mg capsule Take 3 capsules by mouth once daily. dicyclomine (BENTYL) 20 mg tablet THREE TIMES DAILY NEEDED as needed for GI SPASMS tiZANidine (ZANAFLEX) 4 mg tablet Take one pill by mouth 3 times a day as needed oxyCODONE-acetaminophen (PERCOCET 10) 10-325 mg tablet THREE TIMES DAILY oxyCODONE ER (OXYCONTIN) 15 mg 12 hr tablet THREE TIMES DAILY MULTIVITAMIN ORAL Take 1 tablet by mouth once daily. No current facility-administered medications for this visit. ALLERGIES Allergen Reactions Iodinated Contrast * Hives Morphine Hives Ht 152.4 cm (5') Wt 69.4 kg (153 lb) BMI 29.88 kg/m Physical Exam Constitutional: General: She is not in acute distress. Eyes: Comments: Sclera clear Extra occular muscles intact Neck: Trachea: No tracheal deviation. Comments: No thyroid masses No adenopathy Non tender Cardiovascular: Rate and Rhythm: Regular rhythm. Heart sounds: Normal heart sounds. No murmur heard. Comments: Non tachycardia Pulmonary: Breath sounds: Normal breath sounds. No wheezing or rales. Chest: Chest wall: No tenderness. Abdominal: General: There is no distension. Palpations: There is no mass. Tenderness: There is no abdominal tenderness. Hernia: No hernia is present. Genitourinary: Comments: Deferred rectal No inguinal adenopathy masses, hernias, or tenderness Musculoskeletal: General: No tenderness or deformity. Comments: No obvious masses Lymphadenopathy: Cervical: No cervical adenopathy. Skin: Comments: No unusual color changes or irritation or concerning lesion changes Neurological: Mental Status: She is alert and oriented to person, place, and time. Sensory: No sensory deficit. Comments: No obvious motor or sensory deficits. Psychiatric: Comments: No unusual behavior ASSESSMENT/PLAN:ASSESSMENT/PLAN: 1. Diverticulosis - ICD9: 562.10, ICD10: K57.90 (primary diagnosis) Recommendations reviewed under control diet sheet given no acute findings today recommend colonoscopy in 2 and half years 2. Epigastric pain - ICD9: 789.06, ICD10: R10.13 No acute findings today patient had a recent cardiac work-up tells me it was negative. In the ER could have an ulcer continue meds we will see what upper scope shows 3. Gastroesophageal reflux disease, unspecified whether esophagitis present - ICD9: 530.81, ICD10: K21.9 Recommendations reviewed continue meds because of worsening symptoms and questionable dysphagia we will check diagnostic upper scope make sure nothing else is going on risk of bleeding perforation anesthetic risk explained MD Nita Forde MD documented in this encounterGrant Hospital04-04-2022 Miscellaneous Notes* Telephone Encounter - Syed Stanley MA - 01/01/2022 6:29 AM EDT Pharmacy faxes requesting refill: Pending Prescriptions Disp Refills PANTOPRAZOLE 40 MG TABLET,DELAYED RELEASE 30 tablet 4 Sig: TAKE 1 TABLET BY MOUTH ONCE DAILY FABIAN: Yes Date of last visit:12/28/2021 Phone #: [phone] (home) [phone] (work) [phone] (cell) The patients preferred pharmacy has been captured for this encounter? yes documented in this encounterGrant Hospital04-03-2022 Hospital Discharge instructions Patient Education 12/31/2021 19:07:59 Chest Pain, Uncertain Cause Uncertain Causes of Chest Pain Chest pain can happen for a number of reasons. Sometimes the cause can't be determined. If your condition does not seem serious, and your pain does not appear to be coming from your heart, your healthcare provider may recommend watching it closely. Sometimes the signs of a serious problem take moretime to appear. Many problems not related to your heart can cause chest pain. These include: Musculoskeletal. Costochondritis is an inflammation of the tissues around the ribs that can occur from trauma or overuse injuries, or a strain of the muscles of the chest wall Respiratory. Pneumonia, collapsed lung (pneumothorax), or inflammation of the lining of the chest and lungs (pleurisy) Gastrointestinal. Esophageal reflux, heartburn, ulcers, or gallbladder disease Anxiety and panic disorders Nerve compression and inflammation Rare miscellaneous problems such as aortic aneurysm (a swelling of the large artery coming out of the heart) or pulmonary embolism (a blood clot in the lungs) Home care After your visit, follow these recommendations: Rest today and avoid strenuous activity. Take any prescribed medicine as directed. Be aware of any recurrent chest pain and notice any changes Follow-up care Follow up with your healthcare provider if you do not start to feel better within 24 hours, or as advised. Call 911 Call 911 if any of these occur: A change in the type of pain: if it feels different, becomes more severe, lasts longer, or begins to spread into your shoulder, arm, neck, jaw or back Shortness of breath or increased pain with breathing Weakness, dizziness, or fainting Rapid heart beat Crushing sensation in your chest When to seek medical advice Call your healthcare provider right away if any of the following occur: Cough with dark colored sputum (phlegm) or blood Fever of 100.4 F (38 C) or higher, or as directed by your healthcare provider Swelling, pain or redness in one leg [id number] [employer]. [address] [place] [address]. All rights reserved. This information is not intended as a substitute for professional medical care. Always follow yourhealthcare professional's instructions. Follow Up Care 12/31/2021 15:32:25 With:LAZARO MENDEZ [facility] Address: [address] [place] [address] [place] [address]- When:2-4 days [facility] 03-31-2022 Miscellaneous Notes* Telephone Encounter - Lennie Pittman - 12/28/2021 3:55 PM EDT Approved; #[id number], 11/28/21 - 09/29/22. * Telephone Encounter - Lennie Pittman - 12/28/2021 12:24 PM EDT Pulm Providers, please disregard. Routed in error. * Telephone Encounter - Lennie Pittman - 12/28/2021 12:19 PM EDT Received a fax from the office, a fax from [facility], that auth needs completed. Auth request completed and is pending. documented in this encounterGrant Hospital03-31-2022 Miscellaneous Notes* Telephone Encounter - Mamie Serrano - 12/28/2021 2:35 PM EDT Spoke with patient, advised of message. Thank you * Telephone Encounter - Trini Dickson MA - 12/27/2021 3:19 PM EDT Left message on patients voicemail for patient to call our office. Phone number has been provided. * Telephone Encounter - iHlda Hunt MD - 12/27/2021 2:47 PM EDT Xray shows mild scoliosis but otherwise normal Hilda Hunt MD * Telephone Encounter - Shara Branham - 12/27/2021 2:29 PM EDT Patient calls today. Reason for Call: Asking for x-ray results. Please advise, thanks. [phone] (home) [phone] (work) [phone] (cell) Patient last appointment: 12/22/2021 Shara Branham documented in this encounterGrant Hospital03-25-2022 Nurse Note* RT Britt(R) - 12/22/2021 2:57 PM EDT 3 VIEW THORACIC SPINE x-ray performed @ [facility] by Sisi Shearer documented in this encounterGrant Hospital03-25-2022 Miscellaneous Notes* Telephone Encounter - Kadie Yost - 12/22/2021 2:51 PM EDT Patient's mammogram is scheduled for 01/24/2022 at 1:00. Patient has been pre registered and [facility]have [facility]. documented in this encounterGrant Hospital03-25-2022 History of Present illness Narrative* Lazaro Mendez APRN.MACHINE TRACER - 12/22/2021 1:43 PM EDT Clau Cunningham is a 65 year old female with a Hx of hypertension, hyperlipidemia, GERD, anxiety, depression, migraines, diverticulitis, arthritis, hysterectomy, cholecystectomy Concern(s) today include: Hypertension, hiatal hernia, back pain, insomnia Hypertension: Pt states that she stopped taking her blood pressure several months ago. It is 145/80 in the officetoday and she states it is running 130-140's/ 70-80's. She would like to stay off the medication. Hiatal hernia: Patient states she was diagnosed with a hiatal hernia years ago. Is continually to have problems with pain in the epigastric region, heartburn, feeling like bubbles coming up her throat. Would like to go see gastroenterology again. To see if they could possibly fix the problem. Does take Protonix 40 mg daily. Back pain: Patient states that she fell and landed on her back in the thoracic region several weeks ago. Pain has not gone away and would like to have an x-ray to see if anything is broken. Still able to move around with minimal pain. Reports pain does increase when she bends forward. Insomnia: Patient was using Ambien 5 mg at nighttime to help her sleep. States this did help initially but itnow seems to be not working as well. Would like to know if the medication could be increased. Is sleeping an average of 3 to 5 hours a night. Her medications were reviewed today and her list is now up to date. She is compliant on taking her medications :Yes She is tolerating her medication(s) without side effects: Yes She is following an appropriate diet for her medical problems: No She is getting some exercise in? No Review of Systems Constitutional: Negative for chills, fatigue and fever. Respiratory: Negative for cough, chest tightness and shortness of breath. Cardiovascular: Negative for chest pain and palpitations. Gastrointestinal: Positive for abdominal pain (epigastric pain and heartburn). Negative for abdominal distention, constipation, diarrhea, nausea and vomiting. Musculoskeletal: Positive for back pain (upper back). Neurological: Negative for dizziness and headaches. Psychiatric/Behavioral: Positive for sleep disturbance. Negative for self-injury and suicidal ideas. ALLERGIES Allergen Reactions Iodinated Contrast * Hives Morphine Hives BP 145/80 (BP Site: Right Arm, BP Position: Sitting, BP Cuff Size: Regular Adult) Pulse 96 Ht 152.4 cm (5') Wt 69.4 kg (153 lb) SpO2 98% BMI 29.88 kg/m BMI 29.88 kg/(m^2) Glucose (mg/dL) Date Value 07/19/2021 137 Potassium (mmol/L) Date Value 07/19/2021 4.7 Sodium (mmol/L) Date Value 07/19/2021 140 Chloride (mmol/L) Date Value 07/19/2021 103 CO2 (mmol/L) Date Value 07/19/2021 26 Creatinine (mg/dL) Date Value 07/19/2021 1.03 BUN (mg/dL) Date Value 07/19/2021 25 Anion Gap (mmol/L) Date Value 07/19/2021 15.7 Calcium (mg/dL) Date Value 07/19/2021 9.5 Cholesterol, Total Date Value Ref Range Status 07/19/2021 206 (H) 130 - 200 mg/dL Final HDL Cholesterol Date Value Ref Range Status 07/19/2021 39 mg/dL Final Comment: National Cholesterol Education Program (NCEP) guidelines: <40 mg/dL: Low HDL-Cholesterol(major risk factor for CHD) > or = 60 mg/dL: High HDL-Cholesterol( negative risk factor for CHD) HDL-cholesterol is affected by a number of factors, e.g., smoking, exercise, hormones, sex, and age. 4th Generation Test; Results may be approximately 7% lower than previous values. LDL Date Value Ref Range Status 07/19/2021 116 mg/dL Final Comment: LDL: OPTIMAL FOR PEOPLE AT VERY HIGH RISK <70 OPTIMAL <100 NEAR OPTIMAL 100-129 BORDERLINE HIGH 130-159 HIGH 160-189 VERY HIGH >=190 Source: 2009 NCEP ATP III, ADA Guidelines Reviewed: December, Triglyceride Date Value Ref Range Status 07/19/2021 253 mg/dL Final Comment: TRIG: DESIRABLE: <150 mg/dL Physical Exam Vitals and nursing note reviewed. Constitutional: General: She is not in acute distress. Appearance: Normal appearance. She is well-developed. She is not diaphoretic. Cardiovascular: Rate and Rhythm: Normal rate and regular rhythm. Heart sounds: Normal heart sounds. No murmur heard. No friction rub. No gallop. Pulmonary: Effort: Pulmonary effort is normal. No respiratory distress. Breath sounds: Normal breath sounds. No wheezing or rales. Abdominal: General: Bowel sounds are normal. Palpations: Abdomen is soft. Tenderness: There is no abdominal tenderness. Musculoskeletal: General: Tenderness (upper back with ROM) present. Normal range of motion. Skin: General: Skin is warm and dry. Neurological: Mental Status: She is alert and oriented to person, place, and time. Psychiatric: Behavior: Behavior normal. Thought Content: Thought content normal. Judgment: Judgment normal. ASSESSMENT/PLAN: 1. Primary hypertension - ICD9: 401.9, ICD10: I10 (primary diagnosis) - good control - Recommended regular aerobic exercise. - Recommend home blood pressure monitoring, to bring results in on next visit - Goal of BP <140/90 2. Hiatal hernia - ICD9: 553.3, ICD10: K44.9 - CONSULT TO GENERAL SURGERY 3. Upper back pain - ICD9: 724.5, ICD10: M54.9 - XR THORACIC LIMITED 2V AP/LAT 4. Chronic insomnia - ICD9: 780.52, ICD10: F51.04 - Increase Ambien to 10 mg daily - ZOLPIDEM 10 MG TABLET Lazaro Mendez CNP Follow Up: Return if symptoms worsen or fail to improve. Voice recognition software utilized. Minor grammatical and/or spelling errors may exist. Portions of this note have been entered by ancillary staff. I have reviewed and when necessary edited, so that they are an adequate record of my encounter with this patient. Medical Decision Making: Problems: Moderate: 2+ stable chronic illnesses Data: Unique test(s) ordered: 2 Risk: Moderate: Drug management Medical Decision Making Level: 4 - Moderate documented in this encounterGrant Hospital03-10-2022 Miscellaneous Notes* Telephone Encounter - Lazaro Mendez APRN.CNP - 12/07/2021 1:46 PM EST Medication just refilled 12/01/21 Lazaro Mendez APRN.MACHINE TRACER * Telephone Encounter - Ivonne Camarena MA - 12/05/2021 4:30 PM EST Pharmacy faxed requesting the following refill. Pending Prescriptions Disp Refills ZOLPIDEM 5 MG TABLET 30 tablet 2 Sig: TAKE 1 TABLET BY MOUTH AT BEDTIME NEEDED FOR INSOMNIA FRANKY Class: C-IV FABIAN: Yes Patient last appointment: 12/05/2021 Patient Phone numbers: [phone] (home) Request is for script(s) to be escript to pharmacy. Ivonne Camarena MA documented in this encounterGrant Hospital01-03-2022 History of Present illness Narrative* Fe Higgins PA-C - 10/02/2021 4:06 AM EST DATE OF SERVICE: 09/30/2021 CHIEF COMPLAINT: The patient is a 66-year-old female here for cough, weak, COVID exposure. ALLERGIES: MORPHINE, IVP DYE. PHYSICAL EXAMINATION: Vital Signs: Blood pressure 166/95, pulse 89, respirations 18, temperature 97.3, pulse oximetry 98. No pain. General: Alert and oriented x3 in no apparent distress. HEENT: All within normal limits with the exception of the sinuses a little tender. Cardiac: Normal rate and rhythm without evidence of murmur. The lungs are clear bilaterally. DIAGNOSIS: Viral. PLAN: Toradol injection for headache, Z-Aashish, monitor, COVID swab. Follow up as needed. Fe Higgins PA-C CP/[id number] [facility] File#: [id number] END OF DOCUMENT / CHANGE LOG FOLLOWS Last Edited By Alyce. Signed By Fe Higgins PAC #PRICH Fe Higgins PAC #PRICH on 10/05/2021 20:03 ET on 10/05/2021 20:03 ET Revision Number - 2 ^^^ Verified/Reviewed by 10/05/21 Phi EUGENE [facility] PATIENT NAME: CLAU RAJPUT [address] [place] MEDICAL REC #: [id number] [place] [address] [facility] RE[facility] PHYSICIAN documented in this encounterGrant Hospital05-26-2021 Evaluation + Plan note Future Scheduled Tests Radiology* MRI Knee w/o Contrast Left 02/22/21 [facility] 09-29-2020 History of Present illness Narrative* Eduar Og APRN.MACHINE TRACER - 06/28/2020 11:19 PM EDT DATE OF SERVICE: 06/27/2020 HISTORY OF PRESENT ILLNESS: Patient is a 65-year-old female presenting to [facility] today for left elbow and arm pain. States she heard and felt a pop about 1 month ago, and the same thing happened a couple of weeks ago. She has a lot of swelling to the arm. No numbness, tingling. No fever, sweats or chills. PAST MEDICAL HISTORY: Hypertension, pneumonia, seizures, depression, headaches. ALLERGIES:1. IVP DYE. 2. MORPHINE. MEDICATIONS:1. Cymbalta. 2. Promethazine. 3. Percocet. 4. Oxycodone. PHYSICAL EXAMINATION: Blood pressure 162/66, pulse 72, respiratory rate 18, temperature 97.2, pulse oximetry 97%. General: Well appearing, nontoxic, no apparent distress. Extremities: Patient has some ecchymosis to anterior aspect left elbow. Tenderness associated in this area. Patient has a moderate amount of swelling to the left forearm. Distal pulses present. Quick capillary refill. Full range of motion to left upper extremity. Distal pulse is present. X-ray of left elbow was obtained, reviewed by radiologist. No acute obvious abnormality. Soft tissue swelling, degenerative changes noted. CLINICAL IMPRESSION: 1. Left elbow sprain/strain. 2. Left arm swelling. PLAN: Discussed signs and symptoms to go to the ER. Tylenol, ibuprofen, RICE. Follow up with orthopedics. Patient has nothing consistent at this time with a compartment syndrome. Has no other questions or concerns. Eduar Og CNP /[id number] [facility] File#: [id number] END OF DOCUMENT / CHANGE LOG FOLLOWS Last Edited By Elec. Signed By Eduar Og CNP #MOYCO Eduar Og CNP #MOYCO on 06/29/2020 08:37 ET on 06/29/2020 08:37 ET Revision Number - 2 ^^^ Verified/Reviewed by 06/29/20 0838 [facility] PATIENT NAME: CLAU RAJPUT [address] [place] MEDICAL REC #: [id number] [place] [address] [place] [facility] RE[facility] [facility] Upper back pain- Primary documented in this encounter [facility]* Diagnosis Gastroesophageal reflux disease without esophagitis Esophageal reflux documented in this encounter [facility] note* Diagnosis Diverticulosis- Primary Diverticulosis of colon (without mention of hemorrhage) Epigastric pain Abdominal pain, epigastric Gastroesophageal reflux disease, unspecified whether esophagitis present documented in this encounter [facility] note* Diagnosis Primary hypertension- Primary Unspecified essential hypertension Hiatal hernia Diaphragmatic hernia without mention of obstruction or gangrene Upper back pain Chronic insomnia Insomnia, unspecified documented in this encounter [facility] note* Diagnosis Gastroesophageal reflux disease without esophagitis- Primary Esophageal reflux Multiple gastric ulcers Gastritis and gastroduodenitis Unspecified gastritis and gastroduodenitis without mention of hemorrhage documented in this encounter [facility] note* Diagnosis Chronic insomnia Insomnia, unspecified documented in this encounter [facility] note* Diagnosis URI with cough and congestion- Primary documented in this encounter [facility]* Diagnosis Primary insomnia- Primary Persistent disorder of initiating or maintaining sleep Mass of upper outer quadrant of right breast documented in this encounter [facility] note* Diagnosis Chronic pain syndrome- Primary documented in this encounter [facility] note* Diagnosis Bacterial sinusitis- Primary Unspecified sinusitis (chronic) Cough documented in this encounter [facility] note* Diagnosis Diverticulitis- Primary Diverticulitis of colon (without mention of hemorrhage) documented in this encounter [facility]* Diagnosis Strain of right shoulder, sequela- Primary Sprain of right elbow, sequela Bursitis of right shoulder Disorders of bursae and tendons in shoulder region, unspecified Rotator cuff syndrome of right shoulder Disorders of bursae and tendons in shoulder region, unspecified Right lateral epicondylitis Lateral epicondylitis of elbow Traumatic arthropathy of right wrist Traumatic arthropathy, forearm Bicipital tendinitis of right shoulder Bicipital tenosynovitis Radial collateral ligament sprain of right elbow, sequela Chronic pain syndrome documented in this encounter [facility]* Diagnosis Chronic pain syndrome [facility] [place] [facility] Diagnosis Arm mass, left- Primary [facility] [place] [facility] Diagnosis Mass of left upper extremity- Primary Acute pain of left shoulder Generalized anxiety disorder [facility] [place] [facility]* Diagnosis Acute pain of left shoulder- Primary [facility] [place] [facility]* Diagnosis Diverticulitis- Primary Diverticulitis of colon (without mention of hemorrhage) [facility] [place] [facility]* Diagnosis Acute pain of left shoulder- Primary [facility] [place] [facility]* Diagnosis Chronic pain syndrome [facility] [place] [facility]* Diagnosis Rotator cuff tear arthropathy, left- Primary [facility] [place] [facility]* Diagnosis Bacterial sinusitis- Primary Unspecified sinusitis (chronic) [facility] [place] [facility]* Diagnosis Hypertension, essential- Primary Unspecified essential hypertension Hyperlipidemia, mixed Mixed hyperlipidemia Migraine without status migrainosus, not intractable, unspecified migraine type Anxiety with depression Gastroesophageal reflux disease without esophagitis Esophageal reflux Chronic insomnia Insomnia, unspecified CEDRICK (obstructive sleep apnea) Obstructive sleep apnea (adult) (pediatric) documented [facility] this [facility] [place] [facility]* Diagnosis Chronic pain syndrome [facility] [place] [facility]* Diagnosis Hyperlipidemia, mixed- Primary Mixed hyperlipidemia Hypertension, essential Unspecified essential hypertension [facility] [place] [facility]* Diagnosis Bursitis of right shoulder Disorders of bursae and tendons in shoulder region, unspecified High risk medication use Encounter for long-term (current) use of other medications Strain of right shoulder, sequela Sprain of right elbow, sequela Rotator cuff syndrome of right shoulder Disorders of bursae and tendons in shoulder region, unspecified Right lateral epicondylitis Lateral epicondylitis of elbow Radial collateral ligament sprain of right elbow, sequela Pain disorder associated with psychological factors Psychogenic pain, site unspecified Chronic pain syndrome [facility] [place] [facility]* Diagnosis CEDRICK (obstructive sleep apnea)- Primary Obstructive sleep apnea (adult) (pediatric) Snoring Other dyspnea and respiratory abnormality [facility] [place] [facility]* Diagnosis Chronic pain syndrome Bursitis of right shoulder Disorders of bursae and tendons in shoulder region, unspecified [facility] [place] [facility]* Diagnosis 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 Impaired fasting glucose- Primary [facility] [place] [facility]* Diagnosis Impaired fasting glucose- Primary [facility] [place] [facility]* Diagnosis Migraine without status migrainosus, not intractable, unspecified migraine type [facility] [place] [facility]* Diagnosis Chronic pain syndrome [facility] [place] [facility]* Diagnosis Generalized anxiety disorder [facility] [place] [facility]* Diagnosis Bursitis of right shoulder- Primary Disorders of bursae and tendons in shoulder region, unspecified Bicipital tendinitis, right shoulder Chronic pain syndrome High risk medication use Encounter for long-term (current) use of other medications Strain of right shoulder, sequela [facility] [place] [facility]* Diagnosis Gastroesophageal reflux disease without esophagitis Esophageal reflux [facility] [place] [facility]* Diagnosis Migraine without status migrainosus, not intractable, unspecified migraine type [facility] [place] [facility]* Diagnosis Bursitis of right shoulder- Primary Disorders of bursae and tendons in shoulder region, unspecified Bursitis of right shoulder Disorders of bursae and tendons in shoulder region, unspecified Bicipital tendinitis, right shoulder [facility] [place] [facility]* Diagnosis Chronic pain syndrome [facility] [place] [facility]* Diagnosis Bursitis of right shoulder- Primary Disorders of bursae and tendons in shoulder region, unspecified Bursitis of right shoulder Disorders of bursae and tendons in shoulder region, unspecified [facility] [place] [facility]* Diagnosis Chronic pain syndrome Bursitis of right shoulder Disorders of bursae and tendons in shoulder region, unspecified [facility] [place] [facility] Diagnosis URI, acute- Primary Acute upper respiratory infections of unspecified site Recurrent UTI (urinary tract infection) Urinary tract infection, site not specified Chest pressure Other chest pain UTI symptoms Other symptoms involving urinary system Bursitis of right shoulder Disorders of bursae and tendons in shoulder region, unspecified [facility] [place] [facility]* Diagnosis Chronic pain syndrome Bursitis of right shoulder Disorders of bursae and tendons in shoulder region, unspecified [facility] [place] [facility]* Diagnosis Chronic pain syndrome [facility] [place] [facility]* Diagnosis Lateral epicondylitis, right elbow Traumatic arthropathy, right wrist Other sprain of right elbow, initial encounter Bicipital tendinitis, right shoulder Chronic pain syndrome High risk medication use Encounter for long-term (current) use of other medications documented [facility]* Diagnosis Hypertension, essential- Primary Unspecified essential hypertension Type 2 diabetes mellitus with hyperglycemia, without long-term current use of insulin ([facility]) Hyperlipidemia, mixed Mixed hyperlipidemia Gastroesophageal reflux disease without esophagitis Esophageal reflux Migraine with aura and without status migrainosus, not intractable Migraine with aura, without mention of intractable migraine without mention of status migrainosus Chronic insomnia Insomnia, unspecified Seasonal allergic rhinitis, unspecified trigger CEDRICK (obstructive sleep apnea) Obstructive sleep apnea (adult) (pediatric) Snoring Other dyspnea and respiratory abnormality Excessive daytime sleepiness Anxiety with depression documented in this encounter [facility]* Diagnosis Pharyngitis, unspecified etiology- Primary Sore throat Acute pharyngitis documented in this encounter [facility] note* Diagnosis Chronic pain syndrome documented in this encounter [facility] note* Diagnosis Chronic pain syndrome documented in this encounter [facility] note* Diagnosis Lateral epicondylitis, right elbow- Primary Traumatic arthropathy, right wrist Other sprain of right elbow, initial encounter Bicipital tendinitis, right shoulder Bipolar disorder, current episode mixed, moderate (HCC) Bipolar I disorder, most recent episode (or current) mixed, moderate documented in this encounter [facility]* Diagnosis Anxiety with depression documented in this encounter [facility] course Narrative No data available for this section [facility] Progress note No data available for this section [facility] Reason for referral (narrative)* Diagnostic Procedure Only (Routine) - Pending Review Specialty Diagnoses / Procedures Referred By Contac t Referred To Contact BR IMAGING Diagnoses Mass of upper outer quadrant of right breast Procedures LYDIA DIAGNOSTIC BILAT DIAGNOSTIC MAMMOGRAPHY COMPUTER-AIDED DETCJ Lazaro Jo, OPTICAL WORKER.MACHINE TRACER [address] [place] [address] [facility] [address] [place] [address] Referral ID Status Reason Start Date Expiration Date Visits Requested Visits Authorized [id number] Pending Review Auto-Generat ed Referral 02/23/2022 03/25/2023 1 1 [facility] for referral (narrative)* Diagnostic Procedure Only (Routine) - Pending Review Specialty Diagnoses / Procedures Referred By Contac t Referred To Contact XR IMAGING Diagnoses Acute pain of left shoulder Procedures XR SHOULDER GENERAL 3V OR MORE AP/TRUE AP/OTHER LEFT RADEX SHOULDER COMPLETE MINIMUM 2 VIEWS Julián Clement APRN.MACHINE TRACER [address] [place] [address] Xr Imaging Referral ID Status Reason Start Date Expiration Date Visits Requested Visits Authorized [id number] Pending Review Auto-Generat ed Referral 06/25/2022 07/25/2023 1 1 * Diagnostic Procedure Only (Routine) - Pending Review Specialty Diagnoses / Procedures Referred By Contac t Referred To Contact US IMAGING Diagnoses Mass of left upper extremity Procedures US EXTREMITY MASS/FLUID COLLECTION LT Julián Clement APRN.MACHINE TRACER [address] [place] [address] Us Imaging Referral ID Status Reason Start Date Expiration Date Visits Requested Visits Authorized [id number] Pending Review Auto-Generat ed Referral 06/25/2022 07/25/2023 1 1 [facility] for referral (narrative)* Diagnostic Procedure Only (Routine) - Pending Review Specialty Diagnoses / Procedures Referred By Contac t Referred To Contact [facility] Diagnoses CEDRICK (obstructive sleep apnea) Snoring Procedures HOME SLEEP APNEA TEST (HSAT) SLEEP STD AIRFLOW HRT RATE&O2 SAT EFFORT Gala Ho APRN.MACHINE TRACER [address] [place] [address] [facility] [place] [address] [place] [address] Referral ID Status Reason Start Date Expiration Date Visits Requested Visits Authorized [id number] Pending Review Auto-Generat ed Referral 08/30/2022 08/30/2023 1 1 [facility] Summary Purpose Family History No Family History Records FoundNo Family History Records FoundNo Family History Records FoundNo Family History Records FoundNo Family History Records FoundNo Family History Records FoundNo Family History Records FoundNo Family History Records FoundNo Family History Records FoundNo Family History Records Found Advance Directives No Advanced Directives Records FoundNo Advanced Directives Records FoundNo Advanced Directives Records FoundNo Advanced Directives Records FoundNo Advanced Directives Records FoundNo Advanced Directives Records FoundNo Advanced Directives Records FoundNo Advanced Directives Records FoundNo Advanced Directives Records FoundNo Advanced Directives Records Found Reason for Referral Specialty Diagnoses / Procedures Referred By Contac t Referred To Contact Clif Hogan, DO [address] [place] [address] Referral ID Status Reason Start Date Expiration Date V isits Requested Visits Authorized [id number] Authorized 09/30/2022 09/29/2024 1 1 Specialty Diagnoses / Procedures Referred By Contac t Referred To Contact Diagnoses Chronic pain syndrome Faiza Aragon APRN.MACHINE BUNCH MAKER [address] [place] [address] Referral ID Status Reason Start Date Expiration Date Visits Re quested Visits Authorized [id number] Closed 1 1 Specialty Diagnoses / Procedures Referred By Contac t Referred To Contact Neurology Diagnoses Migraine without status migrainosus, not intractable, unspecified migraine type Procedures CONSULT TO NEUROLOGY OFFICE/OUTPATIENT [facility] 60-74 MINUTES Gala Olmstead APRN.MACHINE TRACER [address] [place] [address] Milagro Viramontes MD [address] [place] [address] Referral ID Status Reason Start Date Expiration Date Visits Requested Visits Authorized [id number] Authorized PCP Requested Referral 08/07/2022 11/05/2022 1 1 Specialty Diagnoses / Procedures Referred By Contac t Referred To Contact Orthopedics Diagnoses Acute pain of left shoulder Procedures CONSULT TO ORTHOPAEDICS OFFICE/OUTPATIENT [facility] 60-74 MINUTES Julián Clement, OPTICAL WORKER.MACHINE TRACER [address] [place] [address] Referral ID Status Reason Start Date Expiration Date Visits Requested Visits Authorized [id number] Authorized PCP Requested Referral 07/10/2023 1 1 Specialty Diagnoses / Procedures Referred By Contac t Referred To Contact General Surgery Diagnoses Hiatal hernia Procedures CONSULT TO GENERAL SURGERY OFFICE/OUTPATIENT [facility] 60-74 MINUTES Lazaro Mendez, OPTICAL WORKER.MACHINE TRACER [address] [place] [address] Nita Pino MD [address] [place] [address] [place] [address] Referral ID Status Reason Start Date Expiration Date Visits Requested Visits Authorized [id number] Authorized PCP Requested Referral 12/22/2021 03/22/2022 1 1 Specialty Diagnoses / Procedures Referred By Contac t Referred To Contact XR IMAGING Diagnoses Upper back pain Procedures XR THORACIC LIMITED 2V AP/LAT RADEX SPINE THORACIC 2 VIEWS Lazaro Mendez, OPTICAL WORKER.MACHINE TRACER [address] [place] [address] Xr Imaging Referral ID Status Reason Start Date Expiration Date Visits Requested Visits Authorized [id number] Pending Review Auto-Generat ed Referral 12/22/2021 01/21/2023 1 1 Specialty Diagnoses / Procedures Referred By Contac t Referred To Contact BR IMAGING Diagnoses Encounter for screening mammogram for breast cancer Procedures LYDIA SCREENING W MARIEL SCREENING DIGITAL BREAST TOMOSYNTHESIS BI SCREENING MAMMOGRAPHY BI 2-VIEW BREAST INC CAD Lazaro Mendez, OPTICAL WORKER.MACHINE TRACER [address] [place] [address] [facility] [address] [place] [address] Referral ID Status Reason Start Date Expiration Date Visits Requested Visits Authorized [id number] Pending Review Auto-Generat ed Referral 12/22/2021 01/21/2023 1 1 Health Concerns Infection Onset Date Last Indicated Resolved Time COVID-19 Rule-Out 08/19/2020 08/19/2020 08/22/2020 8:02 AM EST COVID-19 Rule-Out 04/23/2021 04/23/2021 04/23/2021 6:24 PM EDT Medications Administered Section Inactive Administered Medications - up to 3 most recent administrations Medication Order MAR Action Action Date Dose Rate Site triamcinolone acetonide 80 mg injection (KeNALog 40) 80 mg, INTRAMUSCULAR, ONCE, 1 dose, On 04/08/23 at 1700 Given 04/08/2023 4:55 PM EDT 80 mg Bu ttocks, Left Additional Source Comments INFORMATION SOURCE (unrecogn ized section and content) DATE CREATED AUTHOR AUTHOR'S ORGANIZ ATION 03/12/2021 [facility] DATE CREATED AUTHOR AUTHOR'S ORGANIZ ATION 03/05/2022 [facility] DATE CREATED AUTHOR AUTHOR'S ORGANIZ ATION 02/12/2023 [facility] DATE CREATED AUTHOR AUTHOR'S ORGANIZ ATION 03/25/2023 [facility] DATE CREATED AUTHOR AUTHOR'S ORGANIZ ATION 04/09/2023 [facility] DATE CREATED AUTHOR AUTHOR'S ORGANIZ ATION 04/25/2023 [facility] DATE CREATED AUTHOR AUTHOR'S ORGANIZ ATION 07/20/2023 [facility] DATE CREATED AUTHOR AUTHOR'S ORGANIZ ATION 07/28/2023 [facility] DATE CREATED AUTHOR AUTHOR'S ORGANIZ ATION 08/24/2023 [facility] [place] [facility] Source Comments (unrecognize d section and content) In the event this informatio n is protected by the Federal Confidentiality of Alcohol and Drug Abuse Patient Records regulations: The Federal rules restrict any use of the information to criminally investigate or prosecute any alcohol or drug abuse patient.[facility] the event this information is protected by the Federal Confidentiality of Alcohol and Drug Abuse Patient Records regulations: The Federal rules restrict any use of the information to criminally investigate or prosecute any alcohol or drug abuse patient.[facility] the event this information is protected by the Federal Confidentiality of Alcohol and Drug Abuse Patient Records regulations: The Federal rules restrict any use of the information to criminally investigate or prosecute any alcohol or drug abuse patient.[facility] the event this information is protected by the Federal Confidentiality of Alcohol and Drug Abuse Patient Records regulations: The Federal rules restrict any use of the information to criminally investigate or prosecute any alcohol or drug abuse patient.[facility] the event this information is protected by the Federal Confidentiality of Alcohol and Drug Abuse Patient Records regulations: The Federal rules restrict any use of the information to criminally investigate or prosecute any alcohol or drug abuse patient.[facility] the event this information is protected by the Federal Confidentiality of Alcohol and Drug Abuse Patient Records regulations: The Federal rules restrict any use of the information to criminally investigate or prosecute any alcohol or drug abuse patient.[facility] the event this information is protected by the Federal Confidentiality of Alcohol and Drug Abuse Patient Records regulations: The Federal rules restrict any use of the information to criminally investigate or prosecute any alcohol or drug abuse patient.[facility] the event this information is protected by the Federal Confidentiality of Alcohol and Drug Abuse Patient Records regulations: The Federal rules restrict any use of the information to criminally investigate or prosecute any alcohol or drug abuse patient.[facility] the event this information is protected by the Federal Confidentiality of Alcohol and Drug Abuse Patient Records regulations: The Federal rules restrict any use of the information to criminally investigate or prosecute any alcohol or drug abuse patient.[facility] the event this information is protected by the Federal Confidentiality of Alcohol and Drug Abuse Patient Records regulations: The Federal rules restrict any use of the information to criminally investigate or prosecute any alcohol or drug abuse patient.[facility] the event this information is protected by the Federal Confidentiality of Alcohol and Drug Abuse Patient Records regulations: The Federal rules restrict any use of the information to criminally investigate or prosecute any alcohol or drug abuse patient.[facility] the event this information is protected by the Federal Confidentiality of Alcohol and Drug Abuse Patient Records regulations: The Federal rules restrict any use of the information to criminally investigate or prosecute any alcohol or drug abuse patient.[facility] the event this information is protected by the Federal Confidentiality of Alcohol and Drug Abuse Patient Records regulations: The Federal rules restrict any use of the information to criminally investigate or prosecute any alcohol or drug abuse patient.[facility] the event this information is protected by the Federal Confidentiality of Alcohol and Drug Abuse Patient Records regulations: The Federal rules restrict any use of the information to criminally investigate or prosecute any alcohol or drug abuse patient.[facility] the event this information is protected by the Federal Confidentiality of Alcohol and Drug Abuse Patient Records regulations: The Federal rules restrict any use of the information to criminally investigate or prosecute any alcohol or drug abuse patient.[facility] Hospital[facility] the event this information is protected by the Federal Confidentiality of Alcohol and Drug Abuse Patient Records regulations: The Federal rules restrict any use of the information to criminally investigate or prosecute any alcohol or drug abuse patient.[facility] Hospital[facility] the event this information is protected by the Federal Confidentiality of Alcohol and Drug Abuse Patient Records regulations: The Federal rules restrict any use of the information to criminally investigate or prosecute any alcohol or drug abuse patient.[facility] Hospital[facility] the event this information is protected by the Federal Confidentiality of Alcohol and Drug Abuse Patient Records regulations: The Federal rules restrict any use of the information to criminally investigate or prosecute any alcohol or drug abuse patient.[facility] HospitalIn the event this information is protected by the Federal Confidentiality of Alcohol and Drug Abuse Patient Records regulations: The Federal rules restrict any use of the information to criminally investigate or prosecute any alcohol or drug abuse patient.[facility] HospitalIn the event this information is protected by the Federal Confidentiality of Alcohol and Drug Abuse Patient Records regulations: The Federal rules restrict any use of the information to criminally investigate or prosecute any alcohol or drug abuse patient.[facility] HospitalIn the event this information is protected by the Federal Confidentiality of Alcohol and Drug Abuse Patient Records regulations: The Federal rules restrict any use of the information to criminally investigate or prosecute any alcohol or drug abuse patient.[facility] HospitalIn the event this information is protected by the Federal Confidentiality of Alcohol and Drug Abuse Patient Records regulations: The Federal rules restrict any use of the information to criminally investigate or prosecute any alcohol or drug abuse patient.[facility] HospitalIn the event this information is protected by the Federal Confidentiality of Alcohol and Drug Abuse Patient Records regulations: The Federal rules restrict any use of the information to criminally investigate or prosecute any alcohol or drug abuse patient.[facility] HospitalIn the event this information is protected by the Federal Confidentiality of Alcohol and Drug Abuse Patient Records regulations: The Federal rules restrict any use of the information to criminally investigate or prosecute any alcohol or drug abuse patient.[facility] HospitalIn the event this information is protected by the Federal Confidentiality of Alcohol and Drug Abuse Patient Records regulations: The Federal rules restrict any use of the information to criminally investigate or prosecute any alcohol or drug abuse patient.[facility] HospitalIn the event this information is protected by the Federal Confidentiality of Alcohol and Drug Abuse Patient Records regulations: The Federal rules restrict any use of the information to criminally investigate or prosecute any alcohol or drug abuse patient.[facility] HospitalIn the event this information is protected by the Federal Confidentiality of Alcohol and Drug Abuse Patient Records regulations: The Federal rules restrict any use of the information to criminally investigate or prosecute any alcohol or drug abuse patient.[facility] HospitalIn the event this information is protected by the Federal Confidentiality of Alcohol and Drug Abuse Patient Records regulations: The Federal rules restrict any use of the information to criminally investigate or prosecute any alcohol or drug abuse patient.[facility] HospitalIn the event this information is protected by the Federal Confidentiality of Alcohol and Drug Abuse Patient Records regulations: The Federal rules restrict any use of the information to criminally investigate or prosecute any alcohol or drug abuse patient.[facility] HospitalIn the event this information is protected by the Federal Confidentiality of Alcohol and Drug Abuse Patient Records regulations: The Federal rules restrict any use of the information to criminally investigate or prosecute any alcohol or drug abuse patient.[facility] HospitalIn the event this information is protected by the Federal Confidentiality of Alcohol and Drug Abuse Patient Records regulations: The Federal rules restrict any use of the information to criminally investigate or prosecute any alcohol or drug abuse patient.[facility] HospitalIn the event this information is protected by the Federal Confidentiality of Alcohol and Drug Abuse Patient Records regulations: The Federal rules restrict any use of the information to criminally investigate or prosecute any alcohol or drug abuse patient.[facility] HospitalIn the event this information is protected by the Federal Confidentiality of Alcohol and Drug Abuse Patient Records regulations: The Federal rules restrict any use of the information to criminally investigate or prosecute any alcohol or drug abuse patient.[facility] HospitalIn the event this information is protected by the Federal Confidentiality of Alcohol and Drug Abuse Patient Records regulations: The Federal rules restrict any use of the information to criminally investigate or prosecute any alcohol or drug abuse patient.[facility] HospitalIn the event this information is protected by the Federal Confidentiality of Alcohol and Drug Abuse Patient Records regulations: The Federal rules restrict any use of the information to criminally investigate or prosecute any alcohol or drug abuse patient.[facility] HospitalIn the event this information is protected by the Federal Confidentiality of Alcohol and Drug Abuse Patient Records regulations: The Federal rules restrict any use of the information to criminally investigate or prosecute any alcohol or drug abuse patient.[facility] HospitalIn the event this information is protected by the Federal Confidentiality of Alcohol and Drug Abuse Patient Records regulations: The Federal rules restrict any use of the information to criminally investigate or prosecute any alcohol or drug abuse patient.[facility] HospitalIn the event this information is protected by the Federal Confidentiality of Alcohol and Drug Abuse Patient Records regulations: The Federal rules restrict any use of the information to criminally investigate or prosecute any alcohol or drug abuse patient.[facility] HospitalIn the event this information is protected by the Federal Confidentiality of Alcohol and Drug Abuse Patient Records regulations: The Federal rules restrict any use of the information to criminally investigate or prosecute any alcohol or drug abuse patient.[facility] HospitalIn the event this information is protected by the Federal Confidentiality of Alcohol and Drug Abuse Patient Records regulations: The Federal rules restrict any use of the information to criminally investigate or prosecute any alcohol or drug abuse patient.[facility] HospitalIn the event this information is protected by the Federal Confidentiality of Alcohol and Drug Abuse Patient Records regulations: The Federal rules restrict any use of the information to criminally investigate or prosecute any alcohol or drug abuse patient.[facility] HospitalIn the event this information is protected by the Federal Confidentiality of Alcohol and Drug Abuse Patient Records regulations: The Federal rules restrict any use of the information to criminally investigate or prosecute any alcohol or drug abuse patient.[facility] HospitalIn the event this information is protected by the Federal Confidentiality of Alcohol and Drug Abuse Patient Records regulations: The Federal rules restrict any use of the information to criminally investigate or prosecute any alcohol or drug abuse patient.[facility] HospitalIn the event this information is protected by the Federal Confidentiality of Alcohol and Drug Abuse Patient Records regulations: The Federal rules restrict any use of the information to criminally investigate or prosecute any alcohol or drug abuse patient.[facility] HospitalIn the event this information is protected by the Federal Confidentiality of Alcohol and Drug Abuse Patient Records regulations: The Federal rules restrict any use of the information to criminally investigate or prosecute any alcohol or drug abuse patient.[facility] HospitalIn the event this information is protected by the Federal Confidentiality of Alcohol and Drug Abuse Patient Records regulations: The Federal rules restrict any use of the information to criminally investigate or prosecute any alcohol or drug abuse patient.[facility] HospitalIn the event this information is protected by the Federal Confidentiality of Alcohol and Drug Abuse Patient Records regulations: The Federal rules restrict any use of the information to criminally investigate or prosecute any alcohol or drug abuse patient.[facility] HospitalIn the event this information is protected by the Federal Confidentiality of Alcohol and Drug Abuse Patient Records regulations: The Federal rules restrict any use of the information to criminally investigate or prosecute any alcohol or drug abuse patient.[facility] HospitalIn the event this information is protected by the Federal Confidentiality of Alcohol and Drug Abuse Patient Records regulations: The Federal rules restrict any use of the information to criminally investigate or prosecute any alcohol or drug abuse patient.[facility] HospitalIn the event this information is protected by the Federal Confidentiality of Alcohol and Drug Abuse Patient Records regulations: The Federal rules restrict any use of the information to criminally investigate or prosecute any alcohol or drug abuse patient.[facility] HospitalIn the event this information is protected by the Federal Confidentiality of Alcohol and Drug Abuse Patient Records regulations: The Federal rules restrict any use of the information to criminally investigate or prosecute any alcohol or drug abuse patient.[facility] HospitalIn the event this information is protected by the Federal Confidentiality of Alcohol and Drug Abuse Patient Records regulations: The Federal rules restrict any use of the information to criminally investigate or prosecute any alcohol or drug abuse patient.[facility] HospitalIn the event this information is protected by the Federal Confidentiality of Alcohol and Drug Abuse Patient Records regulations: The Federal rules restrict any use of the information to criminally investigate or prosecute any alcohol or drug abuse patient.[facility] HospitalIn the event this information is protected by the Federal Confidentiality of Alcohol and Drug Abuse Patient Records regulations: The Federal rules restrict any use of the information to criminally investigate or prosecute any alcohol or drug abuse patient.[facility] HospitalIn the event this information is protected by the Federal Confidentiality of Alcohol and Drug Abuse Patient Records regulations: The Federal rules restrict any use of the information to criminally investigate or prosecute any alcohol or drug abuse patient.[facility] HospitalIn the event this information is protected by the Federal Confidentiality of Alcohol and Drug Abuse Patient Records regulations: The Federal rules restrict any use of the information to criminally investigate or prosecute any alcohol or drug abuse patient.[facility] HospitalIn the event this information is protected by the Federal Confidentiality of Alcohol and Drug Abuse Patient Records regulations: The Federal rules restrict any use of the information to criminally investigate or prosecute any alcohol or drug abuse patient.[facility] HospitalIn the event this information is protected by the Federal Confidentiality of Alcohol and Drug Abuse Patient Records regulations: The Federal rules restrict any use of the information to criminally investigate or prosecute any alcohol or drug abuse patient.[facility] HospitalIn the event this information is protected by the Federal Confidentiality of Alcohol and Drug Abuse Patient Records regulations: The Federal rules restrict any use of the information to criminally investigate or prosecute any alcohol or drug abuse patient.[facility] HospitalIn the event this information is protected by the Federal Confidentiality of Alcohol and Drug Abuse Patient Records regulations: The Federal rules restrict any use of the information to criminally investigate or prosecute any alcohol or drug abuse patient.[facility] HospitalIn the event this information is protected by the Federal Confidentiality of Alcohol and Drug Abuse Patient Records regulations: The Federal rules restrict any use of the information to criminally investigate or prosecute any alcohol or drug abuse patient.[facility] HospitalIn the event this information is protected by the Federal Confidentiality of Alcohol and Drug Abuse Patient Records regulations: The Federal rules restrict any use of the information to criminally investigate or prosecute any alcohol or drug abuse patient.[facility] HospitalIn the event this information is protected by the Federal Confidentiality of Alcohol and Drug Abuse Patient Records regulations: The Federal rules restrict any use of the information to criminally investigate or prosecute any alcohol or drug abuse patient.[facility] HospitalIn the event this information is protected by the Federal Confidentiality of Alcohol and Drug Abuse Patient Records regulations: The Federal rules restrict any use of the information to criminally investigate or prosecute any alcohol or drug abuse patient.[facility] HospitalIn the event this information is protected by the Federal Confidentiality of Alcohol and Drug Abuse Patient Records regulations: The Federal rules restrict any use of the information to criminally investigate or prosecute any alcohol or drug abuse patient.[facility] HospitalIn the event this information is protected by the Federal Confidentiality of Alcohol and Drug Abuse Patient Records regulations: The Federal rules restrict any use of the information to criminally investigate or prosecute any alcohol or drug abuse patient.[facility] HospitalIn the event this information is protected by the Federal Confidentiality of Alcohol and Drug Abuse Patient Records regulations: The Federal rules restrict any use of the information to criminally investigate or prosecute any alcohol or drug abuse patient.[facility] HospitalIn the event this information is protected by the Federal Confidentiality of Alcohol and Drug Abuse Patient Records regulations: The Federal rules restrict any use of the information to criminally investigate or prosecute any alcohol or drug abuse patient.[facility] HospitalIn the event this information is protected by the Federal Confidentiality of Alcohol and Drug Abuse Patient Records regulations: The Federal rules restrict any use of the information to criminally investigate or prosecute any alcohol or drug abuse patient.[facility] HospitalIn the event this information is protected by the Federal Confidentiality of Alcohol and Drug Abuse Patient Records regulations: The Federal rules restrict any use of the information to criminally investigate or prosecute any alcohol or drug abuse patient.[facility] HospitalIn the event this information is protected by the Federal Confidentiality of Alcohol and Drug Abuse Patient Records regulations: The Federal rules restrict any use of the information to criminally investigate or prosecute any alcohol or drug abuse patient.[facility] HospitalIn the event this information is protected by the Federal Confidentiality of Alcohol and Drug Abuse Patient Records regulations: The Federal rules restrict any use of the information to criminally investigate or prosecute any alcohol or drug abuse patient.[facility] HospitalIn the event this information is protected by the Federal Confidentiality of Alcohol and Drug Abuse Patient Records regulations: The Federal rules restrict any use of the information to criminally investigate or prosecute any alcohol or drug abuse patient.[facility] HospitalIn the event this information is protected by the Federal Confidentiality of Alcohol and Drug Abuse Patient Records regulations: The Federal rules restrict any use of the information to criminally investigate or prosecute any alcohol or drug abuse patient.[facility] HospitalIn the event this information is protected by the Federal Confidentiality of Alcohol and Drug Abuse Patient Records regulations: The Federal rules restrict any use of the information to criminally investigate or prosecute any alcohol or drug abuse patient.[facility] HospitalIn the event this information is protected by the Federal Confidentiality of Alcohol and Drug Abuse Patient Records regulations: The Federal rules restrict any use of the information to criminally investigate or prosecute any alcohol or drug abuse patient.[facility] HospitalIn the event this information is protected by the Federal Confidentiality of Alcohol and Drug Abuse Patient Records regulations: The Federal rules restrict any use of the information to criminally investigate or prosecute any alcohol or drug abuse patient.[facility] HospitalIn the event this information is protected by the Federal Confidentiality of Alcohol and Drug Abuse Patient Records regulations: The Federal rules restrict any use of the information to criminally investigate or prosecute any alcohol or drug abuse patient.[facility] HospitalIn the event this information is protected by the Federal Confidentiality of Alcohol and Drug Abuse Patient Records regulations: The Federal rules restrict any use of the information to criminally investigate or prosecute any alcohol or drug abuse patient.[facility] HospitalIn the event this information is protected by the Federal Confidentiality of Alcohol and Drug Abuse Patient Records regulations: The Federal rules restrict any use of the information to criminally investigate or prosecute any alcohol or drug abuse patient.[facility] HospitalIn the event this information is protected by the Federal Confidentiality of Alcohol and Drug Abuse Patient Records regulations: The Federal rules restrict any use of the information to criminally investigate or prosecute any alcohol or drug abuse patient.[facility] HospitalIn the event this information is protected by the Federal Confidentiality of Alcohol and Drug Abuse Patient Records regulations: The Federal rules restrict any use of the information to criminally investigate or prosecute any alcohol or drug abuse patient.[facility] HospitalIn the event this information is protected by the Federal Confidentiality of Alcohol and Drug Abuse Patient Records regulations: The Federal rules restrict any use of the information to criminally investigate or prosecute any alcohol or drug abuse patient.[facility] HospitalIn the event this information is protected by the Federal Confidentiality of Alcohol and Drug Abuse Patient Records regulations: The Federal rules restrict any use of the information to criminally investigate or prosecute any alcohol or drug abuse patient.[facility] HospitalIn the event this information is protected by the Federal Confidentiality of Alcohol and Drug Abuse Patient Records regulations: The Federal rules restrict any use of the information to criminally investigate or prosecute any alcohol or drug abuse patient.[facility] HospitalIn the event this information is protected by the Federal Confidentiality of Alcohol and Drug Abuse Patient Records regulations: The Federal rules restrict any use of the information to criminally investigate or prosecute any alcohol or drug abuse patient.[facility] HospitalIn the event this information is protected by the Federal Confidentiality of Alcohol and Drug Abuse Patient Records regulations: The Federal rules restrict any use of the information to criminally investigate or prosecute any alcohol or drug abuse patient.[facility] HospitalIn the event this information is protected by the Federal Confidentiality of Alcohol and Drug Abuse Patient Records regulations: The Federal rules restrict any use of the information to criminally investigate or prosecute any alcohol or drug abuse patient.[facility] HospitalIn the event this information is protected by the Federal Confidentiality of Alcohol and Drug Abuse Patient Records regulations: The Federal rules restrict any use of the information to criminally investigate or prosecute any alcohol or drug abuse patient.[facility] HospitalIn the event this information is protected by the Federal Confidentiality of Alcohol and Drug Abuse Patient Records regulations: The Federal rules restrict any use of the information to criminally investigate or prosecute any alcohol or drug abuse patient.[facility] HospitalIn the event this information is protected by the Federal Confidentiality of Alcohol and Drug Abuse Patient Records regulations: The Federal rules restrict any use of the information to criminally investigate or prosecute any alcohol or drug abuse patient.[facility] HospitalIn the event this information is protected by the Federal Confidentiality of Alcohol and Drug Abuse Patient Records regulations: The Federal rules restrict any use of the information to criminally investigate or prosecute any alcohol or drug abuse patient.[facility] HospitalIn the event this information is protected by the Federal Confidentiality of Alcohol and Drug Abuse Patient Records regulations: The Federal rules restrict any use of the information to criminally investigate or prosecute any alcohol or drug abuse patient.[facility] HospitalIn the event this information is protected by the Federal Confidentiality of Alcohol and Drug Abuse Patient Records regulations: The Federal rules restrict any use of the information to criminally investigate or prosecute any alcohol or drug abuse patient.[facility] HospitalIn the event this information is protected by the Federal Confidentiality of Alcohol and Drug Abuse Patient Records regulations: The Federal rules restrict any use of the information to criminally investigate or prosecute any alcohol or drug abuse patient.[facility] HospitalIn the event this information is protected by the Federal Confidentiality of Alcohol and Drug Abuse Patient Records regulations: The Federal rules restrict any use of the information to criminally investigate or prosecute any alcohol or drug abuse patient.[facility] HospitalIn the event this information is protected by the Federal Confidentiality of Alcohol and Drug Abuse Patient Records regulations: The Federal rules restrict any use of the information to criminally investigate or prosecute any alcohol or drug abuse patient.[facility] HospitalIn the event this information is protected by the Federal Confidentiality of Alcohol and Drug Abuse Patient Records regulations: The Federal rules restrict any use of the information to criminally investigate or prosecute any alcohol or drug abuse patient.[facility] HospitalIn the event this information is protected by the Federal Confidentiality of Alcohol and Drug Abuse Patient Records regulations: The Federal rules restrict any use of the information to criminally investigate or prosecute any alcohol or drug abuse patient.[facility] HospitalIn the event this information is protected by the Federal Confidentiality of Alcohol and Drug Abuse Patient Records regulations: The Federal rules restrict any use of the information to criminally investigate or prosecute any alcohol or drug abuse patient.[facility] HospitalIn the event this information is protected by the Federal Confidentiality of Alcohol and Drug Abuse Patient Records regulations: The Federal rules restrict any use of the information to criminally investigate or prosecute any alcohol or drug abuse patient.[facility] HospitalIn the event this information is protected by the Federal Confidentiality of Alcohol and Drug Abuse Patient Records regulations: The Federal rules restrict any use of the information to criminally investigate or prosecute any alcohol or drug abuse patient.[facility] HospitalIn the event this information is protected by the Federal Confidentiality of Alcohol and Drug Abuse Patient Records regulations: The Federal rules restrict any use of the information to criminally investigate or prosecute any alcohol or drug abuse patient.[facility] HospitalIn the event this information is protected by the Federal Confidentiality of Alcohol and Drug Abuse Patient Records regulations: The Federal rules restrict any use of the information to criminally investigate or prosecute any alcohol or drug abuse patient.[facility] HospitalIn the event this information is protected by the Federal Confidentiality of Alcohol and Drug Abuse Patient Records regulations: The Federal rules restrict any use of the information to criminally investigate or prosecute any alcohol or drug abuse patient.[facility] HospitalIn the event this information is protected by the Federal Confidentiality of Alcohol and Drug Abuse Patient Records regulations: The Federal rules restrict any use of the information to criminally investigate or prosecute any alcohol or drug abuse patient.[facility] HospitalIn the event this information is protected by the Federal Confidentiality of Alcohol and Drug Abuse Patient Records regulations: The Federal rules restrict any use of the information to criminally investigate or prosecute any alcohol or drug abuse patient.[facility] HospitalIn the event this information is protected by the Federal Confidentiality of Alcohol and Drug Abuse Patient Records regulations: The Federal rules restrict any use of the information to criminally investigate or prosecute any alcohol or drug abuse patient.[facility] HospitalIn the event this information is protected by the Federal Confidentiality of Alcohol and Drug Abuse Patient Records regulations: The Federal rules restrict any use of the information to criminally investigate or prosecute any alcohol or drug abuse patient.[facility] HospitalIn the event this information is protected by the Federal Confidentiality of Alcohol and Drug Abuse Patient Records regulations: The Federal rules restrict any use of the information to criminally investigate or prosecute any alcohol or drug abuse patient.[facility] HospitalIn the event this information is protected by the Federal Confidentiality of Alcohol and Drug Abuse Patient Records regulations: The Federal rules restrict any use of the information to criminally investigate or prosecute any alcohol or drug abuse patient.[facility] HospitalIn the event this information is protected by the Federal Confidentiality of Alcohol and Drug Abuse Patient Records regulations: The Federal rules restrict any use of the information to criminally investigate or prosecute any alcohol or drug abuse patient.[facility] HospitalIn the event this information is protected by the Federal Confidentiality of Alcohol and Drug Abuse Patient Records regulations: The Federal rules restrict any use of the information to criminally investigate or prosecute any alcohol or drug abuse patient.[facility] HospitalIn the event this information is protected by the Federal Confidentiality of Alcohol and Drug Abuse Patient Records regulations: The Federal rules restrict any use of the information to criminally investigate or prosecute any alcohol or drug abuse patient.[facility] HospitalIn the event this information is protected by the Federal Confidentiality of Alcohol and Drug Abuse Patient Records regulations: The Federal rules restrict any use of the information to criminally investigate or prosecute any alcohol or drug abuse patient.[facility] HospitalIn the event this information is protected by the Federal Confidentiality of Alcohol and Drug Abuse Patient Records regulations: The Federal rules restrict any use of the information to criminally investigate or prosecute any alcohol or drug abuse patient.[facility] HospitalIn the event this information is protected by the Federal Confidentiality of Alcohol and Drug Abuse Patient Records regulations: The Federal rules restrict any use of the information to criminally investigate or prosecute any alcohol or drug abuse patient.[facility] HospitalIn the event this information is protected by the Federal Confidentiality of Alcohol and Drug Abuse Patient Records regulations: The Federal rules restrict any use of the information to criminally investigate or prosecute any alcohol or drug abuse patient.[facility] HospitalIn the event this information is protected by the Federal Confidentiality of Alcohol and Drug Abuse Patient Records regulations: The Federal rules restrict any use of the information to criminally investigate or prosecute any alcohol or drug abuse patient.[facility] HospitalIn the event this information is protected by the Federal Confidentiality of Alcohol and Drug Abuse Patient Records regulations: The Federal rules restrict any use of the information to criminally investigate or prosecute any alcohol or drug abuse patient.[facility] HospitalIn the event this information is protected by the Federal Confidentiality of Alcohol and Drug Abuse Patient Records regulations: The Federal rules restrict any use of the information to criminally investigate or prosecute any alcohol or drug abuse patient.[facility] HospitalIn the event this information is protected by the Federal Confidentiality of Alcohol and Drug Abuse Patient Records regulations: The Federal rules restrict any use of the information to criminally investigate or prosecute any alcohol or drug abuse patient.[facility] HospitalIn the event this information is protected by the Federal Confidentiality of Alcohol and Drug Abuse Patient Records regulations: The Federal rules restrict any use of the information to criminally investigate or prosecute any alcohol or drug abuse patient.[facility] HospitalIn the event this information is protected by the Federal Confidentiality of Alcohol and Drug Abuse Patient Records regulations: The Federal rules restrict any use of the information to criminally investigate or prosecute any alcohol or drug abuse patient.[facility] HospitalIn the event this information is protected by the Federal Confidentiality of Alcohol and Drug Abuse Patient Records regulations: The Federal rules restrict any use of the information to criminally investigate or prosecute any alcohol or drug abuse patient.[facility] HospitalIn the event this information is protected by the Federal Confidentiality of Alcohol and Drug Abuse Patient Records regulations: The Federal rules restrict any use of the information to criminally investigate or prosecute any alcohol or drug abuse patient.[facility] HospitalIn the event this information is protected by the Federal Confidentiality of Alcohol and Drug Abuse Patient Records regulations: The Federal rules restrict any use of the information to criminally investigate or prosecute any alcohol or drug abuse patient.[facility] HospitalIn the event this information is protected by the Federal Confidentiality of Alcohol and Drug Abuse Patient Records regulations: The Federal rules restrict any use of the information to criminally investigate or prosecute any alcohol or drug abuse patient.[facility] Reason for Visit (unrecogniz ed section and content) Specialty Diagnoses / Procedures Referred By Contac t Referred To Contact Internal Medicine / PAIN MANAGEMENT Diagnoses 3 Month Follow Up Procedures EST PATIENT 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, 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 [address] [place] [address] Referral ID Status Reason Start Date Expiration Date Visits Requested Visits Authorized [id number] Outside PCP Patient Cleared - Admin/Chair man/Directo r advise to proceed or did not respond 04/17/2023 04/17/2023 1 1 Reason Comments Procedure mammogram Reason Comments Radiology XR T-SPINE XRAY Reason Comments Results x-ray Reason Comments Duloxetine auth Reason Comments Refill Request Reason Comments Consult Discuss an EGD, last one many years ago Reason Comments Hypertension Reason Comments Follow Up EGD done 01/10/22 Reason Onset Date Comments Refill Request Refill Request 01/30/2022 Reason Comments Ear Pain melinda ear pa x 2 days Sore Throat x 2days ibuprofen la st dose today Headache Reason Comments Zolpidem auth Reason Onset Date Comments Refill Request Refill Request 02/09/2022 Reason Comments Orders Diagnostic Mammogram Reason Comments Headache Reason Comments Orders Mammogram Reason Onset Date Comments Refill Request 03/27/2022 Reason Comments Cough Breathing Problem Headache Reason Comments Appointment Reason Comments URI Abdominal Pain Reason Onset Date Comments Refill Request 06/15/2022 Reason Onset Date Comments Refill Request 06/20/2022 Reason Comments Pain In the left shoulder with lumps no injury to shoulder pains been going on for 2-3 months now. Reason Comments Mass Two lumps on left bi cep area. First one started about two months ago. Pain stated around two weeks ago. Anxiety Discuss maybe increa sing cymbalta due to increased anxiety Reason Comments Orders US Extremity Mass/Fl uid Left Reason Comments Radiology XR LT SHOULDER XRAY Reason Comments Results Reason Comments Hydroxizine auth Reason Comments Symptoms Reason Onset Date Comments Refill Request 07/16/2022 Reason Comments Release Of Medical Records Reason Comments New Reason Onset Date Comments Allied Health Visit 07/24/2022 Medication A dherence Outreach Reason Comments Insurance Authorization Ambien Reason Comments Sinus Problem Reason Comments No Show Reason Comments Referral Information Neuro Reason Comments [place] [facility] [place] Has been getting mor e frequent migraines. Insomnia Patient was previous ly on Ambien to help with sleep then went off of because her insurance would not pay for it and states she spoke with someone yesterday through her insurance and they will cover it now. Reason Onset Date Comments Refill Request 08/10/2022 Reason Comments Phlebotomy Reason Comments Patient Question Reason Comments Results Labs Reason Comments Patient Question Reason Onset Date Comments Refill Request 09/18/2022 Reason Onset Date Comments Refill Request 09/19/2022 Reason Onset Date Comments Refill Request 10/08/2022 Specialty Diagnoses / Procedures Referred By Isaiah herrera Referred To Contact Diagnoses Bursitis of right shoulder Procedures ARTHROCENTESIS ASPIR&/INJ MAJOR JT/BURSA W/O US INJECTION AA&/STRD SUPRASCAPULAR NERVE INJECTION SHOULDER RIGHT BLOCK SUPRASCAPULAR [facility] [address] [place] [address] Referral ID Status Reason Start Date Expiration Date Visits Re quested Visits Authorized [id number] 1 1 Reason Comments Headaches [facility]. Reason Comments Results A1c Reason Comments Orders Labs Reason Comments SOAPP Needed Reason Comments Insurance Authorization oxyCODONE-acetam inophen (PERCOCET 10) 10-325 mg tablet Reason Comments No Narcotic Meds through [facility] Reason Onset Date Comments Refill Request 11/02/2022 Reason Onset Date Comments Refill Request 11/08/2022 Reason Onset Date Comments Refill Request 11/19/2022 Reason Onset Date Comments Refill Request 12/14/2022 Reason Onset Date Comments Refill Request 01/03/2023 Reason Onset Date Comments Refill Request 01/11/2023 Reason Comments Pain (Shoulder Pain) Arm Pain Specialty Diagnoses / Procedures Referred By Isaiah herrera Referred To Contact Internal Medicine / PAIN MANAGEMENT Diagnoses Bursitis of right shoulder Follow Up Procedures OFFICE/OUTPATIENT ESTABLISHED SF MDM 10-19 MIN OFFICE/OUTPATIENT ESTABLISHED LOW MDM 20-29 MIN OFFICE/OUTPATIENT ESTABLISHED MOD MDM 30-39 MIN OFFICE/OUTPATIENT ESTABLISHED HIGH MDM 40-54 MIN EST PATIENT Gala Olmstead, OPTICAL WORKER.MACHINE TRACER [address] [place] [address] Faiza Aragon, 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 [address] [place] [address] Referral ID Status Reason Start Date Expiration Date Visits Re quested Visits Authorized [id number] Closed 01/14/2023 09/29/2023 1 1 Reason Comments Bwc (Worker's Comp) Reason Comments BWC Approved TENS Trial Reason Onset Date Comments Refill Request 03/14/2023 Reason Comments Case Needed Reason Comments Medication Problem Reason Comments med pa Reason Comments Cough Symptoms started yes terday, 03/18/23. Has only tylenol OTC yesterday. Chest Congestion Back Pain Chest Pain Fatigue Reason Comments Results Reason Comments Medication Problem Reason Comments Partial fill on oxycodone Reason Comments APPOINTMENT REMINDER SPOKE DIRECTLY WITH PATIENT TO REMIND OF APPOINTMENT ON 04/08/23 @ 4:00 PM Reason Comments error Reason Onset Date Comments Refill Request 04/05/2023 Refill Request 04/07/2023 Reason Comments Patient Update Reason Comments Pt asking about MRI order Reason Comments medication denial Reason Comments oxycodone ir denial from private insuran ce Reason Comments New Patient Reason Comments Sore Throat Patient stated that she has blisters in her throat. Dizziness Fatigue Fever Reason Comments Medication Problem Percocet not availab le at DM Reason Onset Date Comments Refill Request 06/11/2023 Reason Comments Sleep Apnea Reason Comments Requesting a procedure Reason Comments Back Pain Pain (Shoulder Pain) Specialty Diagnoses / Procedures Referred By Isaiah herrera Referred To Contact PAIN MANAGEMENT Diagnoses Strain of unspecified muscle, fascia and tendon at shoulder and upper arm level, right arm, initial encounter S46.911A, S53.401A, S53.491A, M75.51, S53.491A, M75.101, M77.11, M12.531, M75.21, S53.431A, F45.42, F32.9 Procedures REFERRAL TO [facility] [id number] Clif Hogan, [address] [place] [address] [place] [address] Referral ID Status Reason Start Date Expiration Date Visits Re quested Visits Authorized [id number] Closed 07/15/2023 07/15/2023 1 1 Reason Comments Phenergan Approved Care Teams (unrecognized sec tion and content) Institutional Aide Relationship Specialty Start Date End Date Lazaro Mendez, OPTICAL WORKER.MACHINE TRACER [address] [place] [address] PCP - General 01/21/19 Stella Castillo, SARI [address] [place] [address] Dye Weigher Helper 06/13/21 Institutional Aide Relationship Specialty Start Date End Date Lazaro Mendez, OPTICAL WORKER.MACHINE TRACER [address] [place] [address] PCP - General 01/21/19 Stella Castillo, SARI [address] [place] [address] Dye Weigher Helper 06/13/21 Institutional Aide Relationship Specialty Start Date End Date Lazaro Mendez, OPTICAL WORKER.MACHINE TRACER [address] [place] [address] PCP - General 01/21/19 Stella Castillo RN [address] [place] [address] Dye Weigher Helper 06/13/21 Institutional Aide Relationship Specialty Start Date End Date Lazaro Mendez, OPTICAL WORKER.MACHINE TRACER [address] [place] [address] PCP - General 01/21/19 Stella Castillo RN [address] [place] [address] Dye Weigher Helper 06/13/21 Institutional Aide Relationship Specialty Start Date End Date Lazaro Mendez, OPTICAL WORKER.MACHINE TRACER [address] [place] [address] PCP - General 01/21/19 Stella Castillo, SARI [address] [place] [address] Dye Weigher Helper 06/13/21 Institutional Aide Relationship Specialty Start Date End Date Lazaro Mendez, OPTICAL WORKER.MACHINE TRACER [address] [place] [address] PCP - General 01/21/19 Stella Castillo, SARI [address] [place] [address] Dye Weigher Helper 06/13/21 Institutional Aide Relationship Specialty Start Date End Date Lazaro Mendez, OPTICAL WORKER.MACHINE TRACER [address] [place] [address] PCP - General 01/21/19 Stella Castillo RN [address] [place] [address] Dye Weigher Helper 06/13/21 Institutional Aide Relationship Specialty Start Date End Date Lazaro Mendez, OPTICAL WORKER.MACHINE TRACER [address] [place] [address] PCP - General 01/21/19 Stella Castillo RN [address] [place] [address] Dye Weigher Helper 06/13/21 Institutional Aide Relationship Specialty Start Date End Date Lazaro Mendez, OPTICAL WORKER.MACHINE TRACER [address] [place] [address] PCP - General 01/21/19 Stella Castillo RN [address] [place] [address] Dye Weigher Helper 06/13/21 Institutional Aide Relationship Specialty Start Date End Date Lazaro Mendez, OPTICAL WORKER.MACHINE TRACER [address] [place] [address] PCP - General 01/21/19 Stella Castillo, SARI [address] [place] [address] Dye Weigher Helper 06/13/21 Institutional Aide Relationship Specialty Start Date End Date Lazaro Mendez, OPTICAL WORKER.MACHINE TRACER [address] [place] [address] PCP - General 01/21/19 Stella Castillo, SARI [address] [place] [address] Dye Weigher Helper 06/13/21 Institutional Aide Relationship Specialty Start Date End Date Lazaro Mendez, OPTICAL WORKER.MACHINE TRACER [address] [place] [address] PCP - General 01/21/19 Stella Castillo RN [address] [place] [address] Dye Weigher Helper 06/13/21 Institutional Aide Relationship Specialty Start Date End Date Lazaro Mendez, OPTICAL WORKER.MACHINE TRACER [address] [place] [address] PCP - General 01/21/19 Stella Castillo RN [address] [place] [address] Dye Weigher Helper 06/13/21 Institutional Aide Relationship Specialty Start Date End Date Lazaro Mendez, OPTICAL WORKER.MACHINE TRACER [address] [place] [address] PCP - General 01/21/19 Stella Castillo RN [address] [place] [address] Dye Weigher Helper 06/13/21 Institutional Aide Relationship Specialty Start Date End Date Lazaro Mendez, OPTICAL WORKER.MACHINE TRACER [address] [place] [address] PCP - General 01/21/19 Stella Castillo, SARI [address] [place] [address] Dye Weigher Helper 06/13/21 Institutional Aide Relationship Specialty Start Date End Date Lazaro Mendez, OPTICAL WORKER.MACHINE TRACER [address] [place] [address] PCP - General 01/21/19 Stella Castillo RN [address] [place] [address] Dye Weigher Helper 06/13/21 Institutional Aide Relationship Specialty Start Date End Date Lazaro Mendez, OPTICAL WORKER.MACHINE TRACER [address] [place] [address] PCP - General 01/21/19 Stella Castillo, SARI [address] [place] [address] Dye Weigher Helper 06/13/21 Institutional Aide Relationship Specialty Start Date End Date Lazaro Mendez, OPTICAL WORKER.MACHINE TRACER [address] [place] [address] PCP - General 01/21/19 Stella Castillo RN [address] [place] [address] Dye Weigher Helper 06/13/21 Institutional Aide Relationship Specialty Start Date End Date Lazaro Mendez, OPTICAL WORKER.MACHINE TRACER [address] [place] [address] PCP - General 01/21/19 Stella Castillo RN [address] [place] [address] Dye Weigher Helper 06/13/21 Institutional Aide Relationship Specialty Start Date End Date Lazaro Mendez, OPTICAL WORKER.MACHINE TRACER [address] [place] [address] PCP - General 01/21/19 Stella Castillo, SARI [address] [place] [address] Dye Weigher Helper 06/13/21 Institutional Aide Relationship Specialty Start Date End Date Lazaro Mendez, OPTICAL WORKER.MACHINE TRACER [address] [place] [address] PCP - General 01/21/19 Stella Castillo, SARI [address] [place] [address] Dye Weigher Helper 06/13/21 Institutional Aide Relationship Specialty Start Date End Date Lazaro Mendez, OPTICAL WORKER.MACHINE TRACER [address] [place] [address] PCP - General 01/21/19 Stella Castillo RN [address] [place] [address] Dye Weigher Helper 06/13/21 Institutional Aide Relationship Specialty Start Date End Date Lazaro Mendez, OPTICAL WORKER.MACHINE TRACER [address] [place] [address] PCP - General 01/21/19 Stella Castillo, SARI [address] [place] [address] Dye Weigher Helper 06/13/21 Institutional Aide Relationship Specialty Start Date End Date Lazaro Mendez, OPTICAL WORKER.MACHINE TRACER [address] [place] [address] PCP - General 01/21/19 Stella Castillo RN [address] [place] [address] Dye Weigher Helper 06/13/21 Institutional Aide Relationship Specialty Start Date End Date Lazaro Mendez, OPTICAL WORKER.MACHINE TRACER [address] [place] [address] PCP - General 01/21/19 Stella Castillo RN [address] [place] [address] Dye Weigher Helper 06/13/21 Institutional Aide Relationship Specialty Start Date End Date Lazaro Mendez, OPTICAL WORKER.MACHINE TRACER [address] [place] [address] PCP - General 01/21/19 Stella Castillo RN [address] [place] [address] Dye Weigher Helper 06/13/21 Institutional Aide Relationship Specialty Start Date End Date Lazaro Mendez, OPTICAL WORKER.MACHINE TRACER [address] [place] [address] PCP - General 01/21/19 Stella Castillo RN [address] [place] [address] Dye Weigher Helper 06/13/21 Institutional Aide Relationship Specialty Start Date End Date Stella Castillo RN [address] [place] [address] Dye Weigher Helper 06/13/21 Institutional Aide Relationship Specialty Start Date End Date Stella Castillo [place] [address] [place] [address] Dye Weigher Helper 06/13/21 Institutional Aide Relationship Specialty Start Date End Date Gala Olmstead, OPTICAL WORKER.MACHINE TRACER [address] [place] [address] PCP - General Family Medicine 08/10/22 Stella Castillo RN [address] [place] [address] Dye Weigher Helper 06/13/21 Institutional Aide Relationship Specialty Start Date End Date [facility], OPTICAL WORKER.MACHINE TRACER [address] [place] [address] PCP - General Family Medicine 08/10/22 Stella Castillo, SARI [address] [place] [address] Dye Weigher Helper 06/13/21 Institutional Aide Relationship Specialty Start Date End Date [facility], OPTICAL WORKER.MACHINE TRACER [address] [place] [address] PCP - General Family Medicine 08/10/22 Stella Castillo, SARI [address] [place] [address] Dye Weigher Helper 06/13/21 Institutional Aide Relationship Specialty Start Date End Date [facility], OPTICAL WORKER.MACHINE TRACER [address] [place] [address] PCP - General Family Medicine 08/10/22 Stella Castillo, SARI [address] [place] [address] Dye Weigher Helper 06/13/21 Institutional Aide Relationship Specialty Start Date End Date [facility], OPTICAL WORKER.MACHINE TRACER [address] [place] [address] PCP - General Family Medicine 08/10/22 Stella Castillo, RN [address] [place] [address] Dye Weigher Helper 06/13/21 Institutional Aide Relationship Specialty Start Date End Date [facility], OPTICAL WORKER.MACHINE TRACER [address] [place] [address] PCP - General Family Medicine 08/10/22 Stella Castillo RN [address] [place] [address] Dye Weigher Helper 06/13/21 Institutional Aide Relationship Specialty Start Date End Date Lazaro Mendez, OPTICAL WORKER.MACHINE TRACER [address] [place] [address] PCP - General 09/13/22 Stella Castillo RN [address] [place] [address] Dye Weigher Helper 06/13/21 Institutional Aide Relationship Specialty Start Date End Date Lazaro Mendez, OPTICAL WORKER.MACHINE TRACER [address] [place] [address] PCP - General 09/13/22 Stella Castillo RN [address] [place] [address] Dye Weigher Helper 06/13/21 Institutional Aide Relationship Specialty Start Date End Date Lazaro Mendez, OPTICAL WORKER.MACHINE TRACER [address] [place] [address] PCP - General 09/13/22 Stella Castillo RN [address] [place] [address] Dye Weigher Helper 06/13/21 Institutional Aide Relationship Specialty Start Date End Date Gala Olmstead, OPTICAL WORKER.MACHINE TRACER [address] [place] [address] PCP - General Family Medicine 10/11/22 Stella Castillo RN [address] [place] [address] Dye Weigher Helper 06/13/21 Institutional Aide Relationship Specialty Start Date End Date Gala Olmstead, OPTICAL WORKER.MACHINE TRACER [address] [place] [address] PCP - General Family Medicine 10/11/22 Stella Castillo, SARI [address] [place] [address] Dye Weigher Helper 06/13/21 Institutional Aide Relationship Specialty Start Date End Date [facility] Gala, OPTICAL WORKER.MACHINE TRACER [address] [place] [address] PCP - General Family Medicine 10/11/22 Stella Castillo, SARI [address] [place] [address] Dye Weigher Helper 06/13/21 Institutional Aide Relationship Specialty Start Date End Date Lazaro Mendez, OPTICAL WORKER.MACHINE TRACER [address] [place] [address] PCP - General 09/13/22 10/10/22 [facility] Gala, OPTICAL WORKER.MACHINE TRACER [address] [place] [address] PCP - General Family Medicine 10/11/22 Stella Castillo, SARI [address] [place] [address] Dye Weigher Helper 06/13/21 Institutional Aide Relationship Specialty Start Date End Date [facility] Gala, OPTICAL WORKER.MACHINE TRACER [address] [place] [address] PCP - General Family Medicine 10/11/22 Stella Castillo, SARI [address] [place] [address] Dye Weigher Helper 06/13/21 Institutional Aide Relationship Specialty Start Date End Date [facility] Gala, OPTICAL WORKER.MACHINE TRACER [address] [place] [address] PCP - General Family Medicine 10/11/22 Stella Csatillo RN [address] [place] [address] Dye Weigher Helper 06/13/21 Institutional Aide Relationship Specialty Start Date End Date [facility], OPTICAL WORKER.MACHINE TRACER [address] [place] [address] PCP - General Family Medicine 10/11/22 Stella Castillo RN [address] [place] [address] Dye Weigher Helper 06/13/21 Institutional Aide Relationship Specialty Start Date End Date [facility], OPTICAL WORKER.MACHINE TRACER [address] [place] [address] PCP - General Family Medicine 10/11/22 Stella Castillo RN [address] [place] [address] Dye Weigher Helper 06/13/21 Institutional Aide Relationship Specialty Start Date End Date [facility], OPTICAL WORKER.MACHINE TRACER [address] [place] [address] PCP - General Family Medicine 10/11/22 Stella Castillo RN [address] [place] [address] Dye Weigher Helper 06/13/21 Institutional Aide Relationship Specialty Start Date End Date [facility], OPTICAL WORKER.MACHINE TRACER [address] [place] [address] PCP - General Family Medicine 10/11/22 Stella Castillo RN [address] [place] [address] Dye Weigher Helper 06/13/21 Institutional Aide Relationship Specialty Start Date End Date [facility], OPTICAL WORKER.MACHINE TRACER [address] [place] [address] PCP - General Family Medicine 10/11/22 Stella Castillo, SARI [address] [place] [address] Dye Weigher Helper 06/13/21 Institutional Aide Relationship Specialty Start Date End Date [facility], OPTICAL WORKER.MACHINE TRACER [address] [place] [address] PCP - General Family Medicine 10/11/22 Stella Castillo, SARI [address] [place] [address] Dye Weigher Helper 06/13/21 Institutional Aide Relationship Specialty Start Date End Date [facility], OPTICAL WORKER.MACHINE TRACER [address] [place] [address] PCP - General Family Medicine 10/11/22 Stella Castillo, SAR[address] [place] [address] Dye Weigher Helper 06/13/21 Institutional Aide Relationship Specialty Start Date End Date [facility], OPTICAL WORKER.MACHINE TRACER [address] [place] [address] PCP - General Family Medicine 10/11/22 Stella Castillo RN [address] [place] [address] Dye Weigher Helper 06/13/21 Institutional Aide Relationship Specialty Start Date End Date [facility], OPTICAL WORKER.MACHINE TRACER [address] [place] [address] PCP - General Family Medicine 10/11/22 Cappon, [place] [address] Dye Weigher Helper 06/13/21 Institutional Aide Relationship Specialty Start Date End Date , OPTICAL WORKER.MACHINE TRACER [address] [place] [address] PCP - General Family Medicine 10/11/22 Stella Castillo RN [address] [place] [address] Dye Weigher Helper 06/13/21 Institutional Aide Relationship Specialty Start Date End Date , OPTICAL WORKER.MACHINE TRACER [address] [place] [address] PCP - General Family Medicine 10/11/22 Stella Castillo RN [address] [place] [address] Dye Weigher Helper 06/13/21 Institutional Aide Relationship Specialty Start Date End Date , OPTICAL WORKER.MACHINE TRACER [address] [place] [address] PCP - General Family Medicine 10/11/22 Stella Castillo RN [address] [place] [address] Dye Weigher Helper 06/13/21 Institutional Aide Relationship Specialty Start Date End Date , OPTICAL WORKER.MACHINE TRACER [address] [place] [address] PCP - General Family Medicine 10/11/22 Stella Castillo RN [address] [place] [address] Dye Weigher Helper 06/13/21 Institutional Aide Relationship Specialty Start Date End Date [facility], OPTICAL WORKER.MACHINE TRACER [address] [place] [address] PCP - General Family Medicine 10/11/22 Stella Castillo, SARI [address] [place] [address] Dye Weigher Helper 06/13/21 Institutional Aide Relationship Specialty Start Date End [facility] OPTICAL WORKER.MACHINE TRACER [address] [place] [address] PCP - General Family Medicine 10/11/22 Stella Castillo RN [address] [place] [address] Dye Weigher Helper 06/13/21 Institutional Aide Relationship Specialty Start Date End Date [facility] OPTICAL WORKER.MACHINE TRACER [address] [place] [address] PCP - General Family Medicine 10/11/22 Stella Castillo RN [address] [place] [address] Dye Weigher Helper 06/13/21 Institutional Aide Relationship Specialty Start Date End Date Nita Weiss II, MD [address] [place] [address] PCP - General Family Medicine 04/05/23 Stella Castillo [place] [address] [place] [address] Dye Weigher Helper 06/13/21 Institutional Aide Relationship Specialty Start Date End Date Nita Weiss II, MD [address] [place] [address] PCP - General Family Medicine 04/05/23 Stella Castillo RN [address] [place] [address] Dye Weigher Helper 06/13/21 Institutional Aide Relationship Specialty Start Date End Date Nita Weiss II, MD [address] [place] [address] [address] [place], [place] [id number] PCP - General Family Medicine 04/05/23 Stella Castillo, SAR[address] [place] [address] Dye Weigher Helper 06/13/21 Institutional Aide Relationship Specialty Start Date End Date Nita Weiss II, MD [address] [place] [address] [address] [place], [place] [id number] PCP - General Family Medicine 04/05/23 Stella Castillo, [place] [address] Dye Weigher Helper 06/13/21 Institutional Aide Relationship Specialty Start Date End Date Nita Weiss II, MD [address] [place] [address] [address] [place] [address] PCP - General Family Medicine 04/05/23 Stella [place]illo, [place] [address] Dye Weigher Helper 06/13/21 Institutional Aide Relationship Specialty Start Date End Date Nita Weiss II, MD [address] [place] [address] [address] [place], [place] [address] PCP - General Family Medicine 04/05/23 Stella Castillo, [address] [place] [address] Dye Weigher Helper 06/13/21 Institutional Aide Relationship Specialty Start Date End Date Nita Weiss II, MD [address] [place] [address] [address] [place], [place] [address] PCP - General Family Medicine 04/05/23 Stella Castillo RN [address] [place], [place] 20[address]62 Dye Weigher Helper 06/13/21 Institutional Aide Relationship Specialty Start Date End Date Nita Weiss II, MD [address] [place] [address] [address] [place], [place] 034352 PCP - General Family Medicine 04/05/23 Stella Castillo RN [address] [place] [address] Dye Weigher Helper 06/13/21 Institutional Aide Relationship Specialty Start Date End Date Nita Weiss II, MD [address] [place] [place] [address] [address] [place], [place] [address] PCP - General Family Medicine 04/05/23 Stella Castillo RN [address] [place] [address] Dye Weigher Helper 06/13/21 Institutional Aide Relationship Specialty Start Date End Date Nita Weiss II, MD [address] [place] [address] [address] [place], [place] [address] PCP - General Family Medicine 04/05/23 Stella Castillo RN [address] [place] [address] Dye Weigher Helper 06/13/21 Institutional Aide Relationship Specialty Start Date End Date Nita Weiss II, MD [address] [place] [place] [address] [address] [place], [place] [address] PCP - General Family Medicine 04/05/23 Stella Castillo RN [address] [place] [address] Dye Weigher Helper 06/13/21 Institutional Aide Relationship Specialty Start Date End Date Nita Weiss II, MD [address] [place] [place] [address] [address] [place], [place] [address] PCP - General Family Medicine 04/05/23 Stella Castillo, SAR[address] [place] [address] Dye Weigher Helper 06/13/21 Institutional Aide Relationship Specialty Start Date End Date Nita Weiss II, MD [address] [place] [address] [address] [place] [address] PCP - General Family Medicine 04/05/23 Stella [place]illo, [place] [address] Dye Weigher Helper 06/13/21 Institutional Aide Relationship Specialty Start Date End Date Nita Weiss II, MD [address] [place] [place] [address] [address] [place], [place] [address] PCP - General Family Medicine 04/05/23 Stella Castillo, [address] [place] [address] Dye Weigher Helper 06/13/21 Institutional Aide Relationship Specialty Start Date End Date [facility] [place], OPTICAL WORKER.MACHINE TRACER [address] [place] [address] PCP - General Family Medicine 08/10/22 09/12/22 Stella Castillo, [address] [place] [address] Dye Weigher Helper 06/13/21 Institutional Aide Relationship Specialty Start Date End Date Gala [place], OPTICAL WORKER.MACHINE TRACER [address] [place] [address] PCP - General Family Medicine 10/11/22 04/04/23 Stella Castillo, [place] [address] Dye Weigher Helper 06/13/21 Institutional Aide Relationship Specialty Start Date End Date [facility] OPTICAL WORKER.MACHINE TRACER [address] [place], [place] [address] [place] [address] PCP - General Family Medicine 10/11/22 04/04/23 Stella Castillo, [place] [address] Dye Weigher Helper 06/13/21 Institutional Aide Relationship Specialty Start Date End Date Lazaro Mendez, OPTICAL WORKER.MACHINE TRACER [address] [place], [place] [address] [address] PCP - General 09/13/22 10/10/22 Stella Castillo RN [address] [place] [address] Dye Weigher Helper 06/13/21 Institutional Aide Relationship Specialty Start Date End Date [facility] OPTICAL WORKER.MACHINE TRACER [address] [place], [place] [address] [place] [address] PCP - General Family Medicine 10/11/22 04/04/23 Stella Castillo RN [address] [place] [address] Dye Weigher Helper 06/13/21 Institutional Aide Relationship Specialty Start Date End Date Nita Weiss II, MD [address] [place] [place] [address] [address] [place] [address] PCP - [facility] 04/05/23 Stella Castillo RN [address] [place], [place] [id number] Dye Weigher Helper 06/13/21 Institutional Aide Relationship Specialty Start Date End Date Nita Weiss II, MD [address] [place] [place] [address] [address] [place], [place] [id number] PCP - [facility] 04/05/23 Stella Castillo RN [address] [place] [address] Dye Weigher Helper 06/13/21 Institutional Aide Relationship Specialty Start Date End Date Nita Weiss II, MD [address] [place] [place] [address] [address] [place], [place] 466132 PCP - [facility] 04/05/23 Stella Castillo RN [address] [place] [address] Dye Weigher Helper 06/13/21 PRN Active and Recently Administ ered Medications (unrecognized section and content) FOR RECORDS PERTAINING TO PATIENTS WHO ARE OR HAVE BEEN ENROLLED IN A CHEMICAL DEPENDENCY/SUBSTANCEABUSE PROGRAM, SOME INFORMATION MAY BE OMITTED. This clinical summary was aggregated from multiple sources. Caution should be exercised in using it in the provision of clinical care. This summary normalizes information from multiple sources, and as a consequence, information in this document may materially change the coding, format and clinical context of patient data. In addition, data may be omitted in some cases. CLINICAL DECISIONS SHOULD BE BASED ON THE PRIMARY CLINICAL RECORDS. [employer] provides no warranty or guarantee of the accuracy or completeness of information in this document.
[2023-10-05 19:00] VITALS: BP 151/47; PULSE 79; RESP 16; O2SAT 98
== END 2023-10-05 19:17 | disposition home or self-care (01) ==
PROVIDERS: Emergency Provider Emergency Medicine; Visit Provider Emergency Medicine
DX: G43.909 Migraine, unspecified, not intractable, without status migrainosus (principal); M54.2 Cervicalgia; Z91.041 Radiographic dye allergy status; Z98.1 Arthrodesis status
CPT/HCPCS: 70496; 70498; 82565; 96361; 96374; 96375; 99283; J7030; Q9967; A4216